=== PATIENT | female | born 1935 | race Hispanic/Latino ===

== ENCOUNTER 2017-02-25 14:07 | Inpatient (IN) | payer MEDICARE ==
--- NOTE | 2017-02-25 14:28 | ED PDOC ---
Arrival/HPI - General Chief Complaint: Weakness/Neurological Deficit Time Seen by Provider: 02/25/17 14:13 Historian: Patient - History of Present Illness Narrative History of Present Illness (Text): 02/25/17 14:28 81 year old female sent from PMD office for facial droop. Patient lives by herself. Physical Education Specialist noticed right facial droop this morning. Patient last seen normal last night. Patient denies having facial droop, states she has not noticed it. Patient refused to go to the ER initially. She went to her PMD where they noticed a facial droop and called EMS to bring the patient to the ER. On arrival to the ER, patient's facial droop has resolved. Physical Education Specialist confirms. Patient only complaining of mild posterior headache. She states this not the worst snow of her life. No photophobia, nausea, vomiting, or other complaints. Time/Duration: 24 hours Symptom Onset: Gradual Symptom Course: Resolved Associated Symptoms (Text): None Past Medical History - Provider Review Nursing Documentation Reviewed: Yes - Infectious Disease Hx of Infectious Diseases: None - Cardiac Hx Hypertension: Yes - Pulmonary Hx Respiratory Disorders: No - Neurological HX Cerebrovascular Accident: Yes (Left sided weakness.) Hx Transient Ischemic Attacks (TIA): Yes - HEENT Hx HEENT Disorder: No - Renal Hx Renal Disorder: No - Endocrine/Metabolic Hx Diabetes Mellitus Type 1: Yes - Hematological/Oncological Hx Blood Transfusions: (UNK) Hx Blood Transfusion Reaction: (UNK) - Integumentary Hx Dermatological Disorder: No - Musculoskeletal/Rheumatological Hx Arthritis: Yes - Gastrointestinal Hx Gastrointestinal Disorders: No - Genitourinary/Gynecological Hx Genitourinary Disorders: No - Psychiatric Hx Psychophysiologic Disorder: No Hx Substance Use: No - Surgical History Hx Orthopedic Surgery: Yes Other/Comment: right wrist x10 years ago - Anesthesia Hx Anesthesia Reactions: (UNK) Hx Malignant Hyperthermia: (UNK) Family/Social History - Physician Review Nursing Documentation Reviewed: Yes Family/Social History: Unknown Family HX Smoking Status: Never Smoked Hx Alcohol Use: No Hx Substance Use: No Allergies/Home Meds Allergies/Adverse Reactions: Allergies FISH Allergy (Verified 02/25/17 14:21) RASH Home Medications: Home Meds Medication Instructions Recorded Confirmed Apixaban [Eliquis] 2.5 mg PO BID 02/25/17 02/25/17 Carvedilol [Coreg] 1 tab PO BID 02/25/17 02/25/17 Digoxin [Lanoxin] 1 tab PO DAILY 02/25/17 02/25/17 Docusate [Colace] 1 cap PO BID 02/25/17 02/25/17 GlipiZIDE [Glucotrol] 5 mg PO DAILY 02/25/17 02/25/17 Lisinopril [Zestril] 2.5 mg PO BID 02/25/17 02/25/17 Omeprazole [Omeprazole] 20 mg PO DAILY 02/25/17 02/25/17 Pravastatin Sodium [Pravachol] 20 mg PO DAILY 02/25/17 02/25/17 metFORMIN [glucOPHAGE] 500 mg PO BID 02/25/17 02/25/17 Review of Systems - Physician Review All systems were reviewed & negative as marked: Yes Physical Exam - Physical Exam Narrative Physical Exam (Text): - Review of Systems Constitutional: Normal. absent: Fatigue, Weight Change, Fevers Eyes: Normal absent: photophobia ENT: Normal Respiratory: Normal absent: SOB, Cough, Sputum Cardiovascular: Normal absent: Chest pain, Palpitations, Syncope Gastrointestinal: Normal absent: Abdominal pain, Diarrhea, Nausea, Vomiting Genitourinary: Normal. absent: Dysuria, Frequency, Hematuria Musculoskeletal: Normal. absent: Arthralgias, Back Pain, Neck Pain Skin: Normal Neurological: Facial droop (resolved), Headache absent: Focal Weakness Endocrine: Normal Hemo/Lymphatic: Normal Psychiatric: Normal - Physical exam Patient appears age appropriate, speaking full sentences without difficulty - Systems Exam Head: Present: Atraumatic, Normocephalic Pupils: Present: PERRL Extraocular Muscles: Present: EOMI Conjunctiva: Present: Normal Mouth: Present: Moist Mucous Membranes Neck: Present: Normal Range of Motion. No: MIDLINE TENDERNESS, Paraspinal Tenderness Respiratory/Chest: Present: Clear to Auscultation, Good Air Exchange. No: Respiratory Distress, Accessory Muscle Use, Tachypneic Cardiovascular: Present: Regular Rate, Irregular rhythm, Normal S1, S2, Peripheral Pulses Present. No: Murmurs Abdomen: Present: Normal Bowel Sounds, No: Tenderness, Peritoneal Signs, Rebound, Guarding, Distention Back: Present: Normal Inspection. No: Midline Tenderness, Paraspinal Tenderness Upper Extremity: Present: Normal Inspection. No: Cyanosis, Edema Lower Extremity: Present: Normal Inspection. No: Edema Neurological: Present: GCS=15, Speech Normal, cranial nerves II through XII fully intact with no cerebellar abnormality, neuro-sensory fully intact. No focal neurological deficits. Skin: Present: Warm, Dry, Normal Color. No: Rashes Lymphatic: Present: OX3, NI, NC Psychiatric: Present: Alert, not agitated. Acting appropriate, as per inspector tool Vital Signs Reviewed: Yes Vital Signs Pulse Resp BP Pulse Ox 02/25/17 14:28 71 16 161/93 H 99 Blood Pressure: Normal Pulse: Regular Respiratory Rate: Normal Appearance: Positive for: Well-Appearing, Non-Toxic, Comfortable Pain Distress: None Mental Status: No: Confused, Agitated, Lethargic Finger Stick Blood Glucose: 108 Medical Decision Making ED Course and Treatment: Impression: Elderly female with resolved facial droop and no focal neurological deficits on neurological exam in ER. Differential Diagnosis include but are not limited to: TIA Plan: -- CT Head, EKG, Chest x-ray -- Tylenol -- Labs -- Reassess and disposition Prior Visits: Notes and results from previous visits were reviewed. Patient last seen in the ED on 04/09/16 for chronic neck pain and discharged home. Progress Notes: 02/25/17 14:26 EKG shows irregular rhythm at [address]-segment elevations, atrial fibrillation. Previous EKG reviewed which showed patient was in sinus rhythm. Interpreted by me. Patient already on Eliquis, rate controlled. PROCEDURE: CT HEAD WITHOUT CONTRAST. Manager Document Control : Sue Valdivia MD Report Date : 02/25/2017 14:47:46 IMPRESSION: Encephalomalacia predominantly involving the right posterior temporal parietal lobes and to a lesser extent portions of the posterior right frontal lobe. Nonspecific white matter changes. Generalized atrophy. 02/25/17 16:20 On reevaluation, patient is resting comfortably in bed, sleeping. Family states the headache has resolved. 02/25/17 16:[address] Houston in detail, agrees with tele obs under his service. Asked for Dr. Corinne Harmon consult for neurology pt and family aware of and agree with plan - Lab Interpretations Lab Results: 02/25/17 15:00 02/25/17 15:00 Lab Results 02/25/17 15:00: Blood Type O POSITIVE, Antibody Screen Negative, BBK History Checked Patient has bt 02/25/17 15:00: Sodium 137, Potassium 3.9, Chloride 100, Carbon Dioxide 28, Anion Gap 13, BUN 21, Creatinine 0.7, Est GFR ( Amer) > 60, Est GFR (Non- Af Amer) > 60, Random Glucose 90, Calcium 9.6, Total Bilirubin 0.8, AST 26, ALT 31, Alkaline Phosphatase 45, Troponin I < 0.01 D, Total Protein 6.7, Albumin 3.9, Globulin 2.8, Albumin/Globulin Ratio 1.4, Triglycerides 130, Cholesterol 151, LDL Cholesterol Direct 80, HDL Cholesterol 47 02/25/17 15:00: PT 13.7 H, INR 1.27 H, APTT 28.7 02/25/17 15:00: WBC 10.0, RBC 4.38, Hgb 12.3, Hct 38.0, MCV 86.8, MCH 28.1, MCHC 32.4, RDW 17.1 H, Plt Count 244, MPV 10.3, Gran % 67.7, Lymph % (Auto) 23.0 , Rooks % (Auto) 8.3 H, Eos % (Auto) 0.8 L, Baso % (Auto) 0.2, Gran # 6.79 H, Lymph # 2.3, Rooks # 0.8 H, Eos # 0.1, Baso # 0.02 - RAD Interpretation Radiology Orders: 02/25/17 14:15 CHEST PORTABLE [RAD] Stat 02/25/17 14:19 HEAD W/O CONTRAST [CT] Stat Bridge Instructor: Radiologist - EKG Interpretation Interpreted by ED Physician: Yes Type: 12 lead EKG - Medication Orders Current Medication Orders: Discontinued Medications Acetaminophen (Tylenol 325mg Tab) 975 mg PO STAT STA Stop: 02/25/17 14:25 Last Admin: 02/25/17 14:46 Dose: 975 mg Aspirin (Aspirin Chewable) 162 mg PO STAT STA Stop: 02/25/17 14:56 Last Admin: 02/25/17 15:32 Dose: 162 mg Atorvastatin Calcium (Lipitor) 40 mg PO STAT STA Stop: 02/25/17 14:57 Last Admin: 02/25/17 15:32 Dose: 40 mg NIHSS Scale ([place]) Time Performed: 14:15 - How Severe is the Stoke Baseline Level of Consciousness: 0=Alert LOC to Questions: 0=Both comments correct LOC to commands: 0=Obeys both correctly Best Gaze: 0=Normal Visual: 0=No visual loss Facial: 0=Normal Motor Arm - Left: 0=No drift Motor Arm - Right: 0=No drift Motor Leg - Left: 0=No drift Motor Leg - Right: 0=No drift Limb Ataxia: 0=Absent Sensory: 0=Normal Best Language: 0=No aphasia Dysarthia: 0=Normal articulation Extinction & Inattention (Neglect): 0=Normal, no object Score: 0 Risk Level: No Stroke Risk rTPA Inclusion/Exclusion - Refusal of Treatment Patient Refused Treatment: No - Inclusion Criteria for Altepase Patient is 18 years or Older: Yes The Clinical Diagnosis of Ischemic Stroke That is Causing a Potentially Disabling Neurological Deficit: No Time of Onset is Well Established to be Less Than 270 Minute Before Treatment Would Begin: No Risk/Benefit Discussed With Patient/Family Member Present: No - Exclusion Criteria for Altepase Uncontrolled Hypertension at Time of Treatment (Systolic BP above 185 or Diastolic BP above 110 mmHg): No - Scribe Statement The provider has reviewed the documentation as recorded by the Cheri Bishop Provider Scribe Attestation: All medical record entries made by the Cheri were at my direction and personally dictated by me. I have reviewed the chart and agree that the record accurately reflects my personal performance of the history, physical exam, medical decision making, and the department course for this patient. I have also personally directed, reviewed, and agree with the discharge instructions and disposition. Disposition/Present on Arrival - Present on Arrival Any Indicators Present on Arrival: No History of DVT/PE: No History of Uncontrolled Diabetes: No Urinary Catheter: No History of Decub. Ulcer: No History Surgical Site Infection Following: None - Disposition Have Diagnosis and Disposition been Completed?: Yes Diagnosis: TIA (transient ischemic attack) Disposition: HOSPITALIZED Disposition Time: 16:51 Patient Plan: Observation Patient Problems: Current Active Problems Problem Status Onset TIA (transient ischemic attack) Acute Condition: STABLE Referrals: PCP,NO [Non-Staff] - Follow up with primary
--- NOTE | 2017-02-25 14:48 | RAD ---
HISTORY: tia COMPARISON: 03/20/2016 FINDINGS: LUNGS: The lungs are clear. PLEURA: No significant pleural effusion identified, no pneumothorax apparent. CARDIOVASCULAR: Normal. OSSEOUS STRUCTURES: No significant abnormalities. VISUALIZED UPPER ABDOMEN: Normal. OTHER FINDINGS: None. IMPRESSION: No active pulmonary disease.
--- NOTE | 2017-02-25 14:49 | CT ---
PROCEDURE: CT HEAD WITHOUT CONTRAST. HISTORY: tia COMPARISON: Noncontrast head CT performed 03/20/16 TECHNIQUE: Axial computed tomography images were obtained through the head/brain without intravenous contrast. Radiation dose: Total exam DLP = 689.09 mGy-cm. This CT exam was performed using one or more of the following dose reduction techniques: Automated exposure control, adjustment of the mA and/or kV according to patient size, and/or use of iterative reconstruction technique. FINDINGS: HEMORRHAGE: No intracranial hemorrhage. BRAIN: Diffuse atrophy with prominence of the ventricles and sulci noted. No mass effect or edema. Intracranial atherosclerotic calcifications. Evidence of encephalomalacia predominantly involving the right posterior temporal parietal lobes and to a lesser extent portions of the posterior right frontal lobe. Additional scattered white matter hypodensities, which are nonspecific, but often seen with chronic microvascular ischemic disease. Please note that MRI with diffusion imaging is more sensitive in the detection of acute ischemic event. VENTRICLES: No hydrocephalus. CALVARIUM: Unremarkable. PARANASAL SINUSES: Unremarkable as visualized. No significant inflammatory changes. MASTOID AIR CELLS: Unremarkable as visualized. No inflammatory changes. OTHER FINDINGS: None. IMPRESSION: Encephalomalacia predominantly involving the right posterior temporal parietal lobes and to a lesser extent portions of the posterior right frontal lobe. Nonspecific white matter changes. Generalized atrophy.
[2017-02-25 15:16] LABS: ADD MANUAL DIFF? NO
[2017-02-25 15:29] LABS: BASO # 0.02 K/mm3 (0.0-2.0); BASO % 0.2 % (0.0-3.0); EOS # 0.1 (0.0-0.7); EOS % 0.8 % (1.5-5.0); GRAN # 6.79 (1.4-6.5); GRAN % 67.7 % (50.0-68.0); LYMPH # 2.3 (1.2-3.4); MEAN CELL VOLUME 86.8 fL (80.0-105.0); MEAN CORPUSCULAR HEMOGLOBIN 28.1 pg (25.0-35.0); MEAN CORPUSCULAR HGB CONC 32.4 g/dl (31.0-37.0); MEAN PLATELET VOLUME 10.3 fl (7.0-11.0); MONO # 0.8 (0.1-0.6); MONO % 8.3 % (1.0-6.0); PLATELET COUNT 244 10^3/uL (120.0-450.0); RED CELL DISTRIBUTION WIDTH 17.1 % (11.5-14.5)
[2017-02-25 15:35] LABS: INR 1.27 (0.93-1.08); PARTIAL THROMBOPLASTIN TIME 28.7 Seconds (23.7-30.8)
[2017-02-25 15:38] LABS: ALB/GLOB RATIO 1.4 (1.1-1.8); ALKALINE PHOSPHATASE 45 U/L (38-133); ALT/SGPT 31 U/L (7-56); AST/SGOT 26 U/L (15-39); BILIRUBIN,TOTAL 0.8 mg/dL (0.2-1.3); BLOOD UREA NITROGEN 21 mg/dL (7-21); CALCIUM 9.6 mg/dL (8.4-10.5); CARBON DIOXIDE 28 mmol/L (21-33); CHLORIDE 100 mmol/L (98-107); CHOLESTEROL 151 mg/dL (130-200); GFR AFRICAN-AMERICAN > 60; GLUCOSE,RANDOM 90 mg/dL (70-110); POTASSIUM 3.9 mmol/L (3.6-5.0); SODIUM 137 mmol/L (132-148); TOTAL PROTEIN 6.7 g/dL (5.8-8.3)
[2017-02-25 15:54] LABS: TROPONIN I < 0.01 ng/mL
--- NOTE | 2017-02-25 18:48 | CARD ---
APPROVED REPORT EKG Measurement Heart [id number] <Conclusion> Atrial fibrillation Left axis deviation Inferior infarct, age undetermined Anteroseptal infarct, age undetermined Abnormal ECG
[2017-02-25] MEDS ORDERED: Sodium Chloride 0.9% 1,000 ML IV SCH ×2 (21:00→21:02)
[2017-02-25 21:29] VITALS: BMI 22.6
[2017-02-25] MEDS ORDERED: Pneumococcal 23-Valent Vaccine IM ONE (21:30)
[2017-02-25] MEDS: Insulin Lispro (humaLOG) LOW Coverage SC SCH (21:35)
--- NOTE | 2017-02-26 00:32 | CP.PCM.HP ---
History of Present Illness - History of Present Illness History of Present Illness: PGY-1 H&P 81 yo female with PMH of HTN, CVA with left sided weakness, DM, arthritis, a. fib on eliquis presented for facial droop. Per patient's sister, patient was found this morning with right sided facial droop and confusion. Patient did not have any facial droop the night before, and seemed normal. Patient lives alone and has tax examiner come to home. Patient refused to go to ED but agreed to go to PMD office. There PMD noticed facial droop and called EMS to bring patient to hospital. On arrival to ED patient;s facial droop had resolved. Per sister, when tax examiner took the bp this morning, it was elevated. Patient also reports vomiting a lsmall amount both yesterday evening and this morning. Patient has had increased difficulty walking and decreased appetite over past few days. SHe denies fever, chills, dizziness. Patient dose report mild cough, constipation and posterior headache. Patient states that she is doing better since coming to ED. PMH: HTN, CVA with left sided weakness, DM, arthritis, a. fib on eliquis PSH: right wrist (8 yo) social hx: denies smoking, alcohol use, illicit drug use, lives alone allergy: fish Present on Admission - Present on Admission Any Indicators Present on Admission: No Review of Systems - Constitutional Constitutional: Headache, Weakness. absent: Chills, Fever, Weight Loss - EENT Eyes: absent: Change in Vision Nose/Mouth/Throat: absent: Nasal Congestion, Nasal Discharge, Sore Throat - Cardiovascular Cardiovascular: absent: Chest Pain, Dyspnea, Palpitations, Syncope - Respiratory Respiratory: absent: Cough, Dyspnea, Hemoptysis - Gastrointestinal Gastrointestinal: Constipation, Nausea, Vomiting. absent: Abdominal Pain, Diarrhea - Genitourinary Genitourinary: absent: Difficulty Urinating, Dysuria - Musculoskeletal Musculoskeletal: Muscle Weakness. absent: Arthralgias, Myalgias, Numbness, Tingling - Integumentary Integumentary: absent: Pruritus, Rash, Skin Ulcer, Wounds - Neurological Neurological: Abnormal Speech, Headaches, Memory Loss, Weakness. absent: Dizziness, Numbness, Focal Weakness, Syncope, Tingling - Hematologic/Lymphatic Hematologic: absent: Easy Bleeding, Easy Bruising Past Patient History - Infectious Disease Hx of Infectious Diseases: None - Past Social History Smoking Status: Never Smoked Alcohol: None Drugs: Denies - CARDIAC Hx Cardia Arrhythmia: Yes (afib) Hx Hypercholesterolemia: Yes Hx Hypertension: Yes - PULMONARY Hx Respiratory Disorders: No - NEUROLOGICAL HX Cerebrovascular Accident: Yes (Left sided weakness.) Hx Transient Ischemic Attacks (TIA): Yes - HEENT Hx HEENT Problems: No - RENAL Hx Chronic Kidney Disease: No - ENDOCRINE/METABOLIC Hx Diabetes Mellitus Type 2: Yes - HEMATOLOGICAL/ONCOLOGICAL Hx Blood Disorders: No - INTEGUMENTARY Hx Dermatological Problems: No - MUSCULOSKELETAL/RHEUMATOLOGICAL Hx Arthritis: Yes Hx Back Pain: Yes Hx Falls: Yes (past) Hx Unsteady Gait: Yes (cane/walker) - GASTROINTESTINAL Hx Gastrointestinal Disorders: No - GENITOURINARY/GYNECOLOGICAL Hx Genitourinary Disorders: No - PSYCHIATRIC Hx Psychophysiologic Disorder: No - SURGICAL HISTORY Hx Orthopedic Surgery: Yes Other/Comment: right wrist x10 years ago, bunionectomy - ANESTHESIA Hx Anesthesia Reactions: (UNK) Hx Malignant Hyperthermia: (UNK) Meds Allergies/Adverse Reactions: Allergies Allergy/AdvReac Type Severity Reaction Status Date / Time FISH Allergy RASH Verified 02/25/17 14:21 Physical Exam - Constitutional Appears: Well, No Acute Distress - Head Exam Head Exam: ATRAUMATIC, NORMOCEPHALIC - Eye Exam Eye Exam: EOMI, Normal appearance, PERRL Additional comments: no facial droop - ENT Exam ENT Exam: Mucous Membranes Dry - Respiratory Exam Respiratory Exam: Clear to Auscultation Bilateral, NORMAL BREATHING PATTERN. absent: Rales, Rhonchi, Wheezes, Respiratory Distress - Cardiovascular Exam Cardiovascular Exam: REGULAR RHYTHM, +S1, +S2. absent: Tachycardia, Diastolic murmur, Systolic Murmur - GI/Abdominal Exam GI & Abdominal Exam: Normal Bowel Sounds, Soft. absent: Distended, Firm, Guarding, Tenderness - Extremities Exam Extremities exam: Positive for: normal inspection. Negative for: pedal edema - Neurological Exam Neurological exam: Alert, Oriented x3 - Expanded Neurological Exam Expanded Speech: Fluid Speech Neuro motor strength exam: Left Upper Extremity: 5, Right Upper Extremity: 5, Left Lower Extremity: 5, Right Lower Extremity: 5 Coma Scale Eye Opening: SPONTANEOUS Coma Scale Motor Response: OBEYS COMMANDS Coma Scale Verbal: Oriented Coma Scale Total: 15 - Skin Skin Exam: Dry, Intact, Normal Color, Warm Results - Vital Signs Recent Vital Signs: Last Vital Signs Temp 98.3 F 02/25/17 23:43 Pulse 68 02/25/17 23:43 Resp 20 02/25/17 23:43 BP 161/80 H 02/25/17 23:43 Pulse Ox 96 02/25/17 23:43 - Labs Result Diagrams: 02/25/17 15:00 02/25/17 15:00 Assessment & Plan - Assessment and Plan (Free Text) Assessment: 81 yo female with PMH of HTN, CVA with left sided weakness, type 1 DM, arthritis , a. fib on eliquis presented for possible TIA. Plan: 1. TIA - facial droop resolved - neuro consult, Dr. Harmon - neuro check q4h - IVF NS @100 - PT eval 2. HTN - currently controlled - restart home lisinopril and coreg tomorrow - cont to monitor 3. DM - hold home metformin - ISS- lispro- low - fingerstick ACHS 4. a. fib - cont eliquis - cont coreg and digoxin - cont to monitor ppx - GI- protonix - DVT- SCDs, eliquis
[2017-02-26 06:47] LABS: ADD MANUAL DIFF? NO
[2017-02-26 06:51] LABS: BASO # 0.03 K/mm3 (0.0-2.0); BASO % 0.5 % (0.0-3.0); EOS # 0.2 (0.0-0.7); EOS % 2.5 % (1.5-5.0); GRAN # 3.38 (1.4-6.5); GRAN % 51.7 % (50.0-68.0); HEMATOCRIT 35.2 % (36.0-48.0); LYMPH # 2.5 (1.2-3.4); LYMPH % 38.7 % (22.0-35.0); MEAN CELL VOLUME 85.9 fL (80.0-105.0); MEAN CORPUSCULAR HEMOGLOBIN 27.8 pg (25.0-35.0); MEAN CORPUSCULAR HGB CONC 32.4 g/dl (31.0-37.0); MEAN PLATELET VOLUME 9.7 fl (7.0-11.0); MONO # 0.4 (0.1-0.6); MONO % 6.6 % (1.0-6.0); PLATELET COUNT 215 10^3/uL (120.0-450.0); RED CELL DISTRIBUTION WIDTH 16.8 % (11.5-14.5); WHITE BLOOD COUNT 6.5 10^3/ul (4.5-11.0)
[2017-02-26 07:01] LABS: ALB/GLOB RATIO 1.2 (1.1-1.8); ALKALINE PHOSPHATASE 34 U/L (38-133); ALT/SGPT 29 U/L (7-56); AST/SGOT 23 U/L (15-39); BILIRUBIN,TOTAL 0.8 mg/dL (0.2-1.3); BLOOD UREA NITROGEN 15 mg/dL (7-21); CARBON DIOXIDE 28 mmol/L (21-33); CHLORIDE 108 mmol/L (98-107); GFR AFRICAN-AMERICAN > 60; GLUCOSE,RANDOM 60 mg/dL (70-110); SODIUM 142 mmol/L (132-148); TOTAL PROTEIN 5.5 g/dL (5.8-8.3)
[2017-02-26] MEDS: Insulin Lispro (humaLOG) LOW Coverage SC SCH ×4 (07:47→21:10)
[2017-02-26] MEDS: Pantoprazole 40 mg EC Tab PO SCH (07:49)
[2017-02-26] MEDS: Digoxin 125 mcg (0.125 mg) Tab PO SCH ×2 (09:55→14:00)
--- NOTE | 2017-02-26 13:11 | US ---
PROCEDURE: Bilateral carotid artery duplex ultrasound HISTORY: Carotid stenosis PHYSICIAN(S): Otilio Stevens MD. TECHNIQUE: Duplex sonography and color-flow Doppler were used to evaluate the carotid bifurcations and limited segments of the vertebral arteries bilaterally. FINDINGS: There is mild to moderate focal heterogeneous echogenic plaque noted at the carotid bifurcations bilaterally. The peak systolic velocity in the proximal right internal carotid artery is 60 cm/sec. This corresponds to a 20 to 39% proximal right ICA stenosis. Normal systolic velocities are noted in the proximal right external carotid artery. There is antegrade flow in the right vertebral artery. The peak systolic velocity in the proximal left internal carotid artery is 70 cm/sec. This corresponds to a 20 to 39% proximal left ICA stenosis. Normal systolic velocities are noted in the proximal left external carotid artery. There is antegrade flow in the left vertebral artery. IMPRESSION: 1. Bilateral 20-39% proximal ICA stenoses. 2. Antegrade flow in both vertebral arteries.
--- NOTE | 2017-02-26 14:42 | HP ---
ADDENDUM: I discussed at length with the resident about the patient. She is comfortable sitting out of bed to chair. She is an 80-year-old female who had a right facial droop that resolved, being the TIA. PAST MEDICAL HISTORY: Hypertension, CVA, left-sided weakness which is old, diabetes, arthritis, atrial fibrillation on Eliquis. The droop came and left. PAST SURGICAL HISTORY: She had a bunionectomy and right wrist surgery 10 years ago. SOCIAL HISTORY: Does not smoke. Occasional alcohol. No illicit drugs. ALLERGIES: FISH. REVIEW OF SYSTEMS: She had this right facial droop which resolved, headache and weakness which resolved. No sore throat. No chest pain, no palpitations, no coughing, no shortness of breath. There is constipation, nausea, vomiting which is chronic, but is better now. No problems urinating. She does have weakness on the side of the body which is from her first stroke. Skin is intact. Normal speech, back to normal at this time. She has atrial fibrillation, hypertension, left-sided weakness from old CVA, diabetes, history of falls, arthritis, uses a walker and cane to get around. PHYSICAL EXAMINATION: VITAL SIGNS: 97.7 temp, 153/69 blood pressure, 60 pulse, 20 respiratory rate, 97% O2 sat on room air. HEENT: Head atraumatic. Eyes: Extraocular muscles are intact. Pupils reactive to light. Mouth is moist. NECK: Supple. HEART: Regular rate. Normal S1, S2. LUNGS: Decreased breath sounds but clear to auscultation. ABDOMEN: Soft, nontender, positive bowel sounds, no guarding, no rebound, no CVA tenderness. She is obese. EXTREMITIES: Trace edema. She has a chronic left-sided weakness. LABORATORY DATA: She had blood tests; 142 sodium, potassium 4, BUN is , creatinine 0.7, GFR is greater than 60, sugar is 60. Hemoglobin A1c is 6, calcium is 9, total bili is 0.8, AST is 23, ALT is 29, alkaline phosphatase 34. Troponin less than 0.01. Cholesterol is 151. INR is 1.27, white count 6.5, hemoglobin 11.4, hematocrit 35.2, platelets Chest x-ray was no active pulmonary disease. CAT scan was nonacute encephalomalacia. I discussed with the resident we will be discharging her home. She is going home on the same medications: Colace, Coreg, Eliquis, Lanoxin, Lipitor, Protonix and Zestril. She is going to follow with Dr. Samuels next week. She is here for TIA which resolved. Dandy Mark DO cc: [id number] TT: 02/26/2017 14:42:00 simran BLEVINS
[2017-02-26 16:06] LABS: URINE APPEARANCE CLEAR (CLEAR); URINE BILIRUBIN NEGATIVE (NEGATIVE); URINE BLOOD NEGATIVE (NEGATIVE); URINE COLOR YELLOW (YELLOW); URINE GLUCOSE (UA) NEGATIVE (NEGATIVE); URINE KETONE NEGATIVE (NEGATIVE); URINE LEUKOCYTE ESTERASE SMALL Leu/uL (NEGATIVE); URINE PROTEIN NEGATIVE mg/dL (<30 mg/dL); URINE UROBILINOGEN 0.2 E.U./dL (<1 E.U./dL)
[2017-02-26 16:20] LABS: URINE RBC NEGATIVE /hpf (0-2)
[2017-02-26 16:21] LABS: URINE BACTERIA FEW (NEG)
--- NOTE | 2017-02-26 22:33 | CON ---
DATE: 02/26/2017 HISTORY OF PRESENT ILLNESS: This is an 81-year-old female with a past medical history who came in with facial droop. The flap presser noticed that the patient was having a right facial droop this m orning. The patient was seen normal last night and that is why the patient first refused to go to [facility] initially and went to her primary medical doctor, who sent her here and now is feeli ng much better, sister at bedside. PAST MEDICAL HISTORY: Hypertension. The patient's blood pressure was noted to be high and the patie nt also has diabetes and status post right wrist surgery 10 years ago. ALLERGIES: THE PATIENT IS ALLERGIC TO FISH. HOME MEDICATIONS: On Eliquis, Coreg, Lanoxin, Colace, Glucotrol, Zestril, omeprazole, Pravachol and Glucophage. REVIEW OF SYSTEMS: A 10-point review of system was negative except left facial mild droop. PHYSICAL EXAMINATION: HEENT: Normocephalic, atraumatic. VITAL SIGNS: Blood pressure 161/93. NECK: Supple. NEUROLOGIC: Awake and oriented to self. Cranial nerves II through XII were tested. Pupils reactive . EOM intact. Visual [place] full. No facial asymmetry. Tongue midline. Motor examination: Moves all the extremities spontaneously. Tone normal. Deep tendon reflexes 1+. Both plantars are downgo ing. Sensory appears intact. Cerebellar and gait deferred. CAT scan of the head was done, which showed encephalomalacia in the right posterior temporal and radha etal lobe and right frontal and no new stroke was noted. IMPRESSION: Transient ischemic attack. Continue present management and will followup. A carotid Do ppler was done, which was only 39% stenosis. Lee Harmon MD cc: [id number] TT: 02/26/2017 22:32:41 Confirmation # [id number] Dictation # [id number] simran
[2017-02-27 07:57] LABS: ADD MANUAL DIFF? NO
[2017-02-27 08:03] LABS: BASO # 0.02 K/mm3 (0.0-2.0); BASO % 0.3 % (0.0-3.0); EOS # 0.2 (0.0-0.7); GRAN # 3.96 (1.4-6.5); GRAN % 54.3 % (50.0-68.0); LYMPH # 2.6 (1.2-3.4); LYMPH % 36.2 % (22.0-35.0); MEAN CELL VOLUME 86.3 fL (80.0-105.0); MEAN CORPUSCULAR HEMOGLOBIN 27.8 pg (25.0-35.0); MEAN CORPUSCULAR HGB CONC 32.2 g/dl (31.0-37.0); MEAN PLATELET VOLUME 10.3 fl (7.0-11.0); MONO # 0.5 (0.1-0.6); MONO % 6.2 % (1.0-6.0); PLATELET COUNT 223 10^3/uL (120.0-450.0); RED CELL DISTRIBUTION WIDTH 17.1 % (11.5-14.5); WHITE BLOOD COUNT 7.3 10^3/ul (4.5-11.0)
[2017-02-27] MEDS: Pantoprazole 40 mg EC Tab PO SCH (08:14)
[2017-02-27 08:15] LABS: ALB/GLOB RATIO 1.2 (1.1-1.8); ALKALINE PHOSPHATASE 37 U/L (38-133); ALT/SGPT 32 U/L (7-56); AST/SGOT 24 U/L (15-39); BILIRUBIN,TOTAL 0.6 mg/dL (0.2-1.3); BLOOD UREA NITROGEN 10 mg/dL (7-21); CARBON DIOXIDE 29 mmol/L (21-33); CHLORIDE 105 mmol/L (98-107); GFR AFRICAN-AMERICAN > 60; GLUCOSE,RANDOM 78 mg/dL (70-110); POTASSIUM 3.9 mmol/L (3.6-5.0); SODIUM 140 mmol/L (132-148); TOTAL PROTEIN 5.6 g/dL (5.8-8.3)
--- NOTE | 2017-02-27 08:40 | DS ---
She is status post TIA. She has hypertension, diabetes, and she is obese. She is comfortable. Disc ussed with the resident at length. All the tests were good. Waiting for the neurologist to see her, but the tests were good. She will get followup in the outpatient if he does not get to see her yet. PHYSICAL EXAMINATION: VITAL SIGNS: She has a 97.7 temp, 60 pulse, 153/69 blood pressure, 20 respiratory rate, 97% O2 sat o n room air. HEAD: Atraumatic, normocephalic. HEART: Regular rate. LUNGS: Clear to auscultation. ABDOMEN: Soft, obese, nontender. EXTREMITIES: No edema with weakness. She is an old CVA, TIA, diabetes. LABORATORY DATA: Her labs look good. Reports were good. She has a consult with neurology that did not see her yet, and there are carotid Dopplers pending. I am hoping to discharge her today on aspir in, Colace, Coreg, Eliquis, Lanoxin, Lipitor, Protonix, Zestril, which are her baseline medications, and to follow up with Dr. Samuels in the next few days in his office The patient is here for a TIA. Dandy Mark DO cc: [id number] TT: 02/27/2017 08:40:01 kelli
--- NOTE | 2017-02-27 08:59 | MRI ---
PROCEDURE: MRI BRAIN WITHOUT CONTRAST HISTORY: CVA/TIA COMPARISON: None. TECHNIQUE: Multiplanar, multisequence MR images of the brain were obtained without intravenous contrast enhancement. FINDINGS: HEMORRHAGE: None DWI: No evidence of an acute or early subacute infarction. BRAIN PARENCHYMA: No mass effect or edema. 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 VENTRICLES: Unremarkable. No hydrocephalus. CRANIUM: Unremarkable. ORBITS: Grossly unremarkable. PARANASAL SINUSES/MASTOIDS: Clear VASCULAR SYSTEM: Skull base flow voids intact. OTHER FINDINGS: None. 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 No acute infarct.
[2017-02-27] MEDS: Insulin Lispro (humaLOG) LOW Coverage SC SCH ×4 (09:27→21:21)
--- NOTE | 2017-02-27 09:58 | PN ---
DATE: 02/27/2017 I saw her resting comfortably in bed. She is feeling better than when she came in. She is still hav ing some issues with weakness here and there. She is very weak. She cannot walk. She needs physica l therapy. I will put a TCU eval, physical therapy eval, so we need to know if she can go to subacut e or TCU. Also, I will get her out of bed to chair if possible. Encouraged her to eat. PHYSICAL EXAMINATION: VITAL SIGNS: Today are 97.9 temp, 64 pulse, 140/75 blood pressure, 21 respiratory rate, 98% O2 sat o n room air. HEAD: Atraumatic, normocephalic. THROAT: Moist. NECK: Supple. HEART: Regular rate. LUNGS: Clear to auscultation. ABDOMEN: Soft. EXTREMITIES: Weak, mildly contracted in the lower extremities, no edema. She is currently on Colace, Coreg, Eliquis, insulin, Lanoxin, Lipitor, Protonix and Zestril. She has a 6.5 white count, 11.4 hemoglobin, 35.2 hematocrit with 215 platelets. Sodium 142, potassiu m is 4, BUN 15, creatinine 0.7, GFR is greater than 60, sugar is 60, calcium is 9.0, total bili is 0. 8, AST is 23, ALT is 29, alk phos 34. Troponin was less than 0.01. Total protein is 5.5, albumin is 3, globulin is 2.5. Urine was small. Digoxin was 1.4. She is being seen by neurology, who said that the TIA was resolving. She had a carotid artery ultras ound. The MRI is pending of the brain. Bilateral 20%-39% proximal ICA stenosis. Waiting for cardio logy to see her. I will order physical therapy. I will order TCU eval. I will try and get her out of bed to chair. I encouraged her to eat her diet as best she can to keep her strength up. I think she is going to need some kind of TCU or subacute rehabilitation. She is very weak. She tells me sh e is weak. I am glad that the symptoms of stroke resolved at this time. I will keep a very close ey e on her. The patient had weakness, transient ischemic attack and now she needs therapy. It is unsafe discharg e at this time. Dandy Mark DO cc: [id number] TT: 02/27/2017 09:58:23 Confirmation # [id number] Dictation # [id number] en
[2017-02-27] MEDS: Digoxin 125 mcg (0.125 mg) Tab PO SCH (14:01)
--- NOTE | 2017-02-27 16:05 | PN ---
DATE: 02/27/2017 CHIEF COMPLAINT: Follow up for transient right-sided facial droop as well as confusion. SUBJECTIVE: The patient seen and examined at bedside. MRI of the brain showed no acute intracranial abnormality, just extensive chronic periventricular white ischemic disease with old right posterior parietal frontal infarct. No acute infarct is seen. She is just generally weak though at this time. Her paresthesias have subsided. She did have an episode on 02/26/17 of hypoglycemia with a blood glu cose of 60 and an A1c of 6.0. She is currently on Eliquis given her history of Afib, 2.5 mg p.o. b.i .d. and Lipitor 10 mg daily for stroke prevention. 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 SOCIAL HISTORY: No illicit drug use, smoking, or ETOH abuse. ALLERGIES: FISH. MEDICATIONS: Reviewed via nurses' reconciliation sheet. REVIEW OF SYSTEMS: A 14-point review of systems is negative except for the HPI. PHYSICAL EXAMINATION: VITAL SIGNS: Temperature 97, pulse rate of 62, blood pressure 140/70, respiratory rate 20, oxygen sa turation 95% on room air. GENERAL: The patient is sitting up in bed in no acute distress. HEENT: Atraumatic, normocephalic. PERRLA. Extraocular muscles intact. NECK: Supple, no JVD, no adenopathy noted. LUNGS: Clear to auscultation. No adventitious sounds. HEART: S1, S2, normal rate and rhythm. No murmurs, rubs, or gallops. ABDOMEN: Soft, nontender, nondistended. Bowel sounds are present. EXTREMITIES: No clubbing, no cyanosis. Peripheral pulses 2+ felt bilaterally. NEUROLOGIC: The patient is alert, oriented to person, place and year. Recall after 5 minutes is 1/3 . Poor attention span, slow thought process. Cranial nerves II through XII are intact. MOTOR: Has residual mild left-sided weakness, 4+ to 5-/5 on the right and slight increased tone on t he left side due to old stroke and weakness. Right side is intact. DTRs are 2+ throughout and 1 at the knees and absent at the ankles. SENSORY: Decreased light touch and pinprick up to the calves bilaterally. Toes are downgoing bilate rally. Decreased vibration in the toes. COORDINATION: [id number] intact. GAIT: Deferred for now. LABORATORIES: Sodium is 140, potassium 3.9, chloride 105, carbon dioxide 29, BUN of 10, creatinine 0 .6, random glucose 78. 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 MRI of the brain showed an acute intracranial abnormality, ___ __ old right posterior parietal frontal infarct and chronic ischemic changes. Currently, she did hav e some low blood glucose of 60 on 02/26/2017, which made her generally more weaker. Currently, she has generalized weakness. At this time, recommend: 1. Continue Eliquis 2.5 mg p.o. b.i.d. for underlying Afib, Lipitor 20 mg for dyslipidemia for strok e prevention. 2. Likely will need some subacute rehabilitation for generalized weakness. 3. Keep her blood pressure between 130-140 mmHg. 4. Keep her blood sugars between 140-180 and avoid hypoglycemic events and continue with current pre sent medical management. No further neurological workup at this time. Please reconsult if necessary. Bulmaro Harmon MD cc: [phone] TT: 02/27/2017 16:04:37 Confirmation # [id number] Dictation # [id number] dn
[2017-02-28 06:50] LABS: ADD MANUAL DIFF? NO
[2017-02-28 07:08] LABS: ALB/GLOB RATIO 1.1 (1.1-1.8); ALKALINE PHOSPHATASE 37 U/L (38-133); ALT/SGPT 26 U/L (7-56); AST/SGOT 21 U/L (15-39); BILIRUBIN,TOTAL 0.6 mg/dL (0.2-1.3); BLOOD UREA NITROGEN 12 mg/dL (7-21); CALCIUM 8.8 mg/dL (8.4-10.5); CARBON DIOXIDE 29 mmol/L (21-33); CHLORIDE 104 mmol/L (98-107); GFR AFRICAN-AMERICAN > 60; GLUCOSE,RANDOM 101 mg/dL (70-110); SODIUM 139 mmol/L (132-148); TOTAL PROTEIN 5.6 g/dL (5.8-8.3)
[2017-02-28 07:12] LABS: BASO # 0.02 K/mm3 (0.0-2.0); BASO % 0.2 % (0.0-3.0); EOS # 0.2 (0.0-0.7); EOS % 2.9 % (1.5-5.0); GRAN # 4.62 (1.4-6.5); GRAN % 57.3 % (50.0-68.0); HEMATOCRIT 36.7 % (36.0-48.0); LYMPH # 2.7 (1.2-3.4); MEAN CELL VOLUME 85.9 fL (80.0-105.0); MEAN CORPUSCULAR HEMOGLOBIN 28.1 pg (25.0-35.0); MEAN CORPUSCULAR HGB CONC 32.7 g/dl (31.0-37.0); MEAN PLATELET VOLUME 9.9 fl (7.0-11.0); MONO # 0.5 (0.1-0.6); MONO % 6.6 % (1.0-6.0); PLATELET COUNT 212 10^3/uL (120.0-450.0); RED CELL DISTRIBUTION WIDTH 16.8 % (11.5-14.5); WHITE BLOOD COUNT 8.1 10^3/ul (4.5-11.0)
--- NOTE | 2017-02-28 07:29 | PN ---
DATE: 02/26/2017 ADDENDUM I was going to discharge her, but her pulse dropped to the 30s and she cannot walk. She will need ph ysical therapy and cardiology evaluation, although her TIA resolved. She is too weak, will need reha b, either TCU or subacute rehab. We will wait and see what physical therapy adds, but she cannot wal k and also the pulse is now in the 30s. Will call cardiology and she if she needs a pacemaker. She is on Coreg, Lanoxin, Zestril. See what cardiology wants to do with the medications and she is also bradycardic, I am adding that to her admitting diagnosis and I changed her to an inpatient. Dandy Mark DO cc: [id number] TT: 02/26/2017 13:45:23 Confirmation # [id number] Dictation # [id number] kelli 02/28/2017 06:28:39
[2017-02-28] MEDS: Insulin Lispro (humaLOG) LOW Coverage SC SCH ×4 (07:58→21:44)
[2017-02-28] MEDS: Pantoprazole 40 mg EC Tab PO SCH (08:17)
[2017-02-28] MEDS: Megestrol Acetate 40 mg/ml Cup PO SCH (09:45)
--- NOTE | 2017-02-28 12:51 | CARDCATH ---
PROCEDURE DATE: 02/28/2017 HISTORY OF PRESENT ILLNESS: The patient is an 81-year-old woman who presented with facial droop. Sh e was found to be in atrial fibrillation. PAST MEDICAL HISTORY: Also includes hypertension. Her facial droop is improved since admission. Her cardiac risk factors include hypertension, diabetes mellitus, and hypercholesterolemia. The patient was on Coreg and Eliquis as an outpatient. SOCIAL HISTORY: Negative smoker. REVIEW OF SYSTEMS: A 14-point was reviewed. No cardiac symptomatology is noted. PHYSICAL EXAMINATION: VITAL SIGNS: Blood pressure is 86/82, the heart rate was in the 50s, atrial fibrillation. NECK: Negative JVD. LUNGS: Without rales. HEART: Reveals S1, S2. EXTREMITIES: Without edema. NEUROLOGIC: The patient is awake and alert, able to answer questions. Her facial droop is resolved. EKG shows atrial fibrillation with nonspecific ST-T changes. The hemoglobin is 12. Chemistries: BUN and creatinine are unremarkable. The glucose is 112. SUMMARY: 1. Atrial fibrillation with periods of decreased heart rate. 2. Transient ischemic attack. 3. Diabetes mellitus. 4. Hypertension. 5. Hypercholesterolemia. Given these findings, I agree with her current medical regimen, which includes stopping her Coreg as well as adding Norvasc for blood pressure control. The patient will continue on Eliquis. The patien t will need extensive rehabilitation. Otilio Cedillo MD cc: [phone] TT: 02/28/2017 12:50:19 en
--- NOTE | 2017-02-28 12:55 | CP.PCM.PN ---
<Bucky Chaney - Last Filed: 02/28/17 14:19> Subjective - Date & Time of Evaluation Date of Evaluation: 02/28/17 Time of Evaluation: 12:48 - Subjective Subjective: Medicine progress note for Dr. Samuels/Dr. Houston - Bucky Chaney PGY1 Patient seen and examined at bedside this morning. No acute overnight events or new complaints. Denies chest pain, palpitations, SOB. Patient to be evaluated for TCU placement given need for physical therapy/rehabilitation. Objective - Vital Signs/Intake and Output Vital Signs (last 24 hours): Temp Pulse Resp BP Pulse Ox 98.1 F 60 20 186/82 H 98 02/28/17 05:14 02/28/17 09:46 02/28/17 05:14 02/28/17 09:46 02/28/17 05:14 Intake and Output: 02/28/17 02/28/17 06:59 18:59 Intake Total 420 Output Total 600 Balance -180 - Medications Medications: Current Medications Apixaban (Eliquis) 2.5 mg PO BID [facility] PRN Reason: Protocol Last Admin: 02/28/17 09:44 Dose: 2.5 mg Atorvastatin Calcium (Lipitor) 10 mg PO DAILY [facility] Last Admin: 02/28/17 09:45 Dose: 10 mg Carvedilol (Coreg) 3.125 mg PO BID [facility] Digoxin (Lanoxin) 0.125 mg PO 1400 [facility] Last Admin: 02/27/17 14:01 Dose: Not Given Docusate Sodium (Colace) 100 mg PO BID [facility] Last Admin: 02/28/17 09:44 Dose: 100 mg Insulin Human Lispro (Humalog Low) 0 units SC ACHS [facility] PRN Reason: Protocol Last Admin: 02/28/17 12:38 Dose: 1 units Lisinopril (Zestril) 2.5 mg PO DAILY [facility] Last Admin: 02/28/17 09:46 Dose: 2.5 mg Megestrol Acetate (Megace) 400 mg PO DAILY [facility] Last Admin: 02/28/17 09:45 Dose: 400 mg Pantoprazole Sodium (Protonix Ec Tab) 40 mg PO ACB [facility] Last Admin: 02/28/17 08:17 Dose: 40 mg - Labs Labs: 02/28/17 05:10 02/28/17 05:10 PT 13.7 Seconds (9.9-11.8) H 02/25/17 15:00 INR 1.27 (0.93-1.08) H 02/25/17 15:00 APTT 28.7 Seconds (23.7-30.8) 02/25/17 15:00 - Constitutional Appears: Non-toxic, No Acute Distress - Head Exam Head Exam: ATRAUMATIC, NORMAL INSPECTION, NORMOCEPHALIC - Eye Exam Eye Exam: EOMI, PERRL - ENT Exam ENT Exam: Mucous Membranes Moist - Respiratory Exam Respiratory Exam: Clear to Ausculation Bilateral. absent: Rales, Rhonchi, Wheezes - Cardiovascular Exam Cardiovascular Exam: +S1, +S2. absent: Gallop, Rubs - GI/Abdominal Exam GI & Abdominal Exam: Soft. absent: Distended, Firm, Guarding, Rigid, Tenderness , Rebound - Neurological Exam Neurological Exam: Alert, Awake, Oriented x3 - Psychiatric Exam Psychiatric exam: Normal Affect, Normal Mood - Skin Skin Exam: Dry, Intact, Normal Color, Warm Assessment and Plan - Assessment and Plan (Free Text) Plan: 81 yo female with history of HTN, CVA with left sided weakness, DM, arthritis, atrial fibrillation on eliquis presented from PMD office with complaint of right -sided facial droop and confusion 1. TIA -Facial droop now resolved -Continue with neurochecks q4h -Reviewed CT Head -Reviewed MRI Brain -Neuro consulted - Dr. Harmon -PT evaluation -Patient will require extended physical therapy; TCU evaluation pending 2. HTN -Continue home lisinopril and coreg 3. DM -Consistent carb diet -Fingersticks ACHS -Low dose ISS 4. Atrial fibrillation -Continue eliquis -Continue coreg and digoxin 5. Prophylaxis -protonix - DVT- SCDs, eliquis Patient seen and case discussed with attending, Dr. Houston <Luan Houston - Last Filed: 03/10/17 19:27> Objective - Vital Signs/Intake and Output Vital Signs (last 24 hours): Temp Pulse Resp BP Pulse Ox 97.4 F L 75 16 177/97 H 97 03/02/17 12:00 03/02/17 12:00 03/02/17 12:00 03/02/17 12:00 03/02/17 06:00 - Labs Labs: 03/02/17 06:30 03/02/17 06:30 PT 13.7 Seconds (9.9-11.8) H 02/25/17 15:00 INR 1.27 (0.93-1.08) H 02/25/17 15:00 APTT 28.7 Seconds (23.7-30.8) 02/25/17 15:00 Attending/Attestation - Attestation I have personally seen and examined this patient.: Yes I have fully participated in the care of the patient.: Yes I have reviewed all pertinent clinical information, including history, physical exam and plan: Yes Notes (Text): 03/10/17 19:27 Medical record note made by the resident after discussion with my direction and input after the patient was personally seen and examined by me. I have reviewed the chart and agree that the record accurately reflects by personal performance of the history, physical exam, data review, and medical decision-making, in the course for the patient. I have also personally directed the plan of care.
[2017-02-28] MEDS: Digoxin 125 mcg (0.125 mg) Tab PO SCH (14:38)
[2017-03-01 06:15] LABS: ADD MANUAL DIFF? NO
[2017-03-01 06:19] LABS: BASO # 0.02 K/mm3 (0.0-2.0); BASO % 0.2 % (0.0-3.0); EOS # 0.2 (0.0-0.7); EOS % 1.8 % (1.5-5.0); GRAN # 4.83 (1.4-6.5); GRAN % 57.6 % (50.0-68.0); HEMATOCRIT 37.8 % (36.0-48.0); LYMPH # 2.8 (1.2-3.4); LYMPH % 33.8 % (22.0-35.0); MEAN CELL VOLUME 86.3 fL (80.0-105.0); MEAN CORPUSCULAR HEMOGLOBIN 28.1 pg (25.0-35.0); MEAN CORPUSCULAR HGB CONC 32.5 g/dl (31.0-37.0); MEAN PLATELET VOLUME 10.1 fl (7.0-11.0); MONO # 0.6 (0.1-0.6); MONO % 6.6 % (1.0-6.0); PLATELET COUNT 225 10^3/uL (120.0-450.0); RED CELL DISTRIBUTION WIDTH 16.5 % (11.5-14.5); WHITE BLOOD COUNT 8.4 10^3/ul (4.5-11.0)
[2017-03-01 06:40] LABS: ALB/GLOB RATIO 1.1 (1.1-1.8); ALKALINE PHOSPHATASE 44 U/L (38-133); ALT/SGPT 25 U/L (7-56); AST/SGOT 24 U/L (15-39); BILIRUBIN,TOTAL 0.6 mg/dL (0.2-1.3); BLOOD UREA NITROGEN 16 mg/dL (7-21); CALCIUM 9.5 mg/dL (8.4-10.5); CARBON DIOXIDE 30 mmol/L (21-33); CHLORIDE 103 mmol/L (98-107); GFR AFRICAN-AMERICAN > 60; GLUCOSE,RANDOM 128 mg/dL (70-110); POTASSIUM 4.1 mmol/L (3.6-5.0); SODIUM 139 mmol/L (132-148); TOTAL PROTEIN 6.2 g/dL (5.8-8.3)
[2017-03-01] MEDS: Pantoprazole 40 mg EC Tab PO SCH (07:33)
[2017-03-01] MEDS: Insulin Lispro (humaLOG) LOW Coverage SC SCH ×3 (08:00→17:12)
[2017-03-01] MEDS: Megestrol Acetate 40 mg/ml Cup PO SCH (09:45)
--- NOTE | 2017-03-01 12:41 | CP.PCM.PN ---
<Bucky Chaney - Last Filed: 03/01/17 13:17> Subjective - Date & Time of Evaluation Date of Evaluation: 03/01/17 Time of Evaluation: 12:37 - Subjective Subjective: Medicine progress note for Dr. Samuels/Dr. Houston service - Bucky Chaney PGY1 Patient seen and examined at bedside this morning. No acute events overnight or new complaints. Denies chest pain, palpitations, SOB. Patient pending potential TCU approval for physical therapy/rehabilitation. Objective - Vital Signs/Intake and Output Vital Signs (last 24 hours): Temp Pulse Resp BP Pulse Ox 97.9 F 55 L 18 158/96 H 95 03/01/17 05:48 03/01/17 10:00 03/01/17 05:48 03/01/17 09:43 03/01/17 05:48 Intake and Output: 03/01/17 03/01/17 06:59 18:59 Intake Total 120 Output Total 0 Balance 120 - Medications Medications: Current Medications Apixaban (Eliquis) 2.5 mg PO BID [facility] PRN Reason: Protocol Last Admin: 03/01/17 09:44 Dose: 2.5 mg Atorvastatin Calcium (Lipitor) 10 mg PO DAILY [facility] Last Admin: 03/01/17 09:45 Dose: 10 mg Carvedilol (Coreg) 3.125 mg PO BID [facility] Digoxin (Lanoxin) 0.125 mg PO 1400 [facility] Last Admin: 02/28/17 14:38 Dose: 0.125 mg Docusate Sodium (Colace) 100 mg PO BID [facility] Last Admin: 03/01/17 09:44 Dose: 100 mg Insulin Human Lispro (Humalog Low) 0 units SC ACHS [facility] PRN Reason: Protocol Last Admin: 03/01/17 12:00 Dose: 1 units Lisinopril (Zestril) 2.5 mg PO DAILY [facility] Last Admin: 03/01/17 09:43 Dose: 2.5 mg Megestrol Acetate (Megace) 400 mg PO DAILY [facility] Last Admin: 03/01/17 09:45 Dose: 400 mg Pantoprazole Sodium (Protonix Ec Tab) 40 mg PO ACB [facility] Last Admin: 03/01/17 07:33 Dose: 40 mg - Labs Labs: 03/01/17 05:45 03/01/17 05:45 PT 13.7 Seconds (9.9-11.8) H 02/25/17 15:00 INR 1.27 (0.93-1.08) H 02/25/17 15:00 APTT 28.7 Seconds (23.7-30.8) 02/25/17 15:00 - Constitutional Appears: Non-toxic, No Acute Distress - Head Exam Head Exam: ATRAUMATIC, NORMAL INSPECTION, NORMOCEPHALIC - Eye Exam Eye Exam: EOMI, PERRL - ENT Exam ENT Exam: Mucous Membranes Moist - Neck Exam Neck Exam: Normal Inspection - Cardiovascular Exam Cardiovascular Exam: Irregular Rhythm, +S1, +S2. absent: Gallop, Rubs - GI/Abdominal Exam GI & Abdominal Exam: Soft. absent: Distended, Firm, Guarding, Rigid, Tenderness , Rebound - Neurological Exam Neurological Exam: Alert, Awake, Oriented x3 Neuro motor strength exam: Left Upper Extremity: 5, Right Upper Extremity: 5, Left Lower Extremity: 5, Right Lower Extremity: 5 Additional comments: CN2-12 intact, no facial droop, sensory intact throughout - Psychiatric Exam Psychiatric exam: Normal Affect, Normal Mood - Skin Skin Exam: Dry, Intact, Normal Color, Warm Assessment and Plan - Assessment and Plan (Free Text) Plan: 81 yo female with history of HTN, CVA with left sided weakness, DM, arthritis, atrial fibrillation on eliquis presented from PMD office with complaint of right -sided facial droop and confusion 1. TIA -Facial droop now resolved -Continue with neurochecks q4h -Reviewed CT Head -Reviewed MRI Brain -Neuro consulted - Dr. Harmon -PT evaluation -Patient will require extended physical therapy; TCU evaluation pending 2. HTN -Continue home lisinopril and coreg 3. DM -Consistent carb diet -Fingersticks ACHS -Low dose ISS 4. Atrial fibrillation -Continue eliquis -Coreg on hold due to bradycardia -Continue digoxin 5. Prophylaxis -protonix - DVT- SCDs, eliquis 6. Disposition -Patient is pending approval to TCU for further rehabilitation/physical therapy. Will follow up with case finishing machine adjuster/social workers. Patient seen and case discussed with attending, Dr. Samuels <Elia Samuels - Last Filed: 04/01/17 09:35> Objective - Vital Signs/Intake and Output Vital Signs (last 24 hours): Temp Pulse Resp BP Pulse Ox 97.4 F L 75 16 177/97 H 97 03/02/17 12:00 03/02/17 12:00 03/02/17 12:00 03/02/17 12:00 03/02/17 06:00 - Labs Labs: 03/02/17 06:30 03/02/17 06:30 PT 13.7 Seconds (9.9-11.8) H 02/25/17 15:00 INR 1.27 (0.93-1.08) H 02/25/17 15:00 APTT 28.7 Seconds (23.7-30.8) 02/25/17 15:00 Attending/Attestation - Attestation I have personally seen and examined this patient.: Yes I have fully participated in the care of the patient.: Yes I have reviewed all pertinent clinical information, including history, physical exam and plan: Yes Notes (Text): 04/01/17 09:35 04/01/17 09:23 Medical note made by resident after discussion with my direction and input after patient personally seen by me. I have reviewed the chart and agree that the record reflects my personal performance of the history, physical, data review and decision making.
--- NOTE | 2017-03-01 12:56 | PN ---
DATE: 03/01/2017 The patient is feeling better off the Coreg. PHYSICAL EXAMINATION: VITAL SIGNS: Blood pressure is 133/80. The heart rate is atrial fibrillation in the 70s. NECK: Negative JVD. LUNGS: Without rales. HEART: S1, S2. EXTREMITIES: Without edema. LABORATORY DATA: The hemoglobin is 12.3. Glucose is 128. IMPRESSION: 1. Improved heart rate off of Coreg. 2. Malaise is better off of Coreg. 3. Diabetes mellitus. 4. Hypertension. 5. Hypercholesterolemia. PLAN: Given these findings, will keep the patient off the Coreg. Will continue the Eliquis. The sharona timothyjosefa would benefit from a TCU stay. Otilio Cedillo MD cc: [phone] TT: 03/01/2017 12:56:28 Confirmation # [id number] Dictation # [id number] md
[2017-03-01] MEDS: Digoxin 125 mcg (0.125 mg) Tab PO SCH (14:15)
[2017-03-02 06:37] VITALS: O2SAT 97
[2017-03-02 06:54] LABS: ADD MANUAL DIFF? NO
[2017-03-02 07:14] LABS: BASO # 0.02 K/mm3 (0.0-2.0); BASO % 0.2 % (0.0-3.0); EOS # 0.2 (0.0-0.7); EOS % 1.9 % (1.5-5.0); GRAN % 62.3 % (50.0-68.0); HEMATOCRIT 37.4 % (36.0-48.0); LYMPH # 2.7 (1.2-3.4); LYMPH % 29.4 % (22.0-35.0); MEAN CELL VOLUME 86.4 fL (80.0-105.0); MEAN CORPUSCULAR HEMOGLOBIN 28.2 pg (25.0-35.0); MEAN CORPUSCULAR HGB CONC 32.6 g/dl (31.0-37.0); MEAN PLATELET VOLUME 9.9 fl (7.0-11.0); MONO # 0.6 (0.1-0.6); MONO % 6.2 % (1.0-6.0); PLATELET COUNT 215 10^3/uL (120.0-450.0); RED CELL DISTRIBUTION WIDTH 16.3 % (11.5-14.5)
[2017-03-02 08:03] LABS: ALB/GLOB RATIO 1.1 (1.1-1.8); ALKALINE PHOSPHATASE 47 U/L (38-133); ALT/SGPT 27 U/L (7-56); AST/SGOT 21 U/L (15-39); BILIRUBIN,TOTAL 0.6 mg/dL (0.2-1.3); BLOOD UREA NITROGEN 17 mg/dL (7-21); CALCIUM 9.5 mg/dL (8.4-10.5); CARBON DIOXIDE 27 mmol/L (21-33); CHLORIDE 104 mmol/L (98-107); GFR AFRICAN-AMERICAN > 60; GLUCOSE,RANDOM 122 mg/dL (70-110); POTASSIUM 3.8 mmol/L (3.6-5.0); SODIUM 138 mmol/L (132-148); TOTAL PROTEIN 5.8 g/dL (5.8-8.3)
[2017-03-02] MEDS: Insulin Lispro (humaLOG) LOW Coverage SC SCH ×3 (08:11→12:23)
[2017-03-02] MEDS: Pantoprazole 40 mg EC Tab PO SCH (08:42)
[2017-03-02] MEDS: Megestrol Acetate 40 mg/ml Cup PO SCH (10:03)
--- NOTE | 2017-03-02 10:39 | PN ---
DATE: 03/02/2017 CARDIOLOGY FOLLOWUP The patient is in a chair, asymptomatic. PHYSICAL EXAMINATION: VITAL SIGNS: Blood pressure is 146/72. The heart rate is in the 60s. NECK: Negative JVD. LUNGS: Without rales. HEART: With S1, S2. EXTREMITIES: Without edema. LABORATORY DATA: Hemoglobin is 12.2. Chemistries: Glucose is 122. IMPRESSION: 1. Heart rate is stable off of Coreg. 2. Chronic diabetes mellitus. 3. Hypertension. 4. Hypercholesterolemia. PLAN: The patient is on Eliquis for atrial fibrillation. Telemetry is discontinued. The patient is for transfer to the TCU. Otilio Cedillo MD cc: [id number] TT: 03/02/2017 09:10:15 Confirmation # [id number] Dictation # [id number] kelli
--- NOTE | 2017-03-02 12:05 | CP.PCM.DIS ---
<Bucky Chaney - Last Filed: 03/05/17 10:07> Provider - Provider Date of Admission: 02/26/17 12:00 Attending physician: Elia Samuels MD Primary care physician: Elia Samuels MD Consults: Cardiology - Dr. Cedillo Neurology - Dr. Harmon Time Spent in preparation of Discharge (in minutes): 30 Hospital Course - Lab Results Lab Results: Most Recent Lab Values WBC 9.0 10^3/ul (4.5-11.0) 03/02/17 06:30 RBC 4.33 10^6/uL (3.5-6.1) 03/02/17 06:30 Hgb 12.2 gm/dL (12.0-16.0) 03/02/17 06:30 Hct 37.4 % (36.0-48.0) 03/02/17 06:30 MCV 86.4 fL (80.0-105.0) 03/02/17 06:30 MCH 28.2 pg (25.0-35.0) 03/02/17 06:30 MCHC 32.6 g/dl (31.0-37.0) 03/02/17 06:30 RDW 16.3 % (11.5-14.5) H 03/02/17 06:30 Plt Count 215 10^3/uL (120.0-450.0) 03/02/17 06:30 MPV 9.9 fl (7.0-11.0) 03/02/17 06:30 Gran % 62.3 % (50.0-68.0) 03/02/17 06:30 Lymph % (Auto) 29.4 % (22.0-35.0) 03/02/17 06:30 [place] % (Auto) 6.2 % (1.0-6.0) H 03/02/17 06:30 Eos % (Auto) 1.9 % (1.5-5.0) 03/02/17 06:30 Baso % (Auto) 0.2 % (0.0-3.0) 03/02/17 06:30 Gran # 5.60 (1.4-6.5) 03/02/17 06:30 Lymph # 2.7 (1.2-3.4) 03/02/17 06:30 [place] # 0.6 (0.1-0.6) 03/02/17 06:30 Eos # 0.2 (0.0-0.7) 03/02/17 06:30 Baso # 0.02 K/mm3 (0.0-2.0) 03/02/17 06:30 PT 13.7 Seconds (9.9-11.8) H 02/25/17 15:00 INR 1.27 (0.93-1.08) H 02/25/17 15:00 APTT 28.7 Seconds (23.7-30.8) 02/25/17 15:00 Sodium 138 mmol/L (132-148) 03/02/17 06:30 Potassium 3.8 mmol/L (3.6-5.0) 03/02/17 06:30 Chloride 104 mmol/L (98-107) 03/02/17 06:30 Carbon Dioxide 27 mmol/L (21-33) 03/02/17 06:30 Anion Gap 11 (10-20) 03/02/17 06:30 BUN 17 mg/dL (7-21) 03/02/17 06:30 Creatinine 0.7 mg/dL (0.5-1.4) 03/02/17 06:30 Est GFR ( Amer) > 60 03/02/17 06:30 Est GFR (Non-Af Amer) > 60 03/02/17 06:30 POC Glucose (mg/dL) 259 mg/dL (65-110) H 03/02/17 11:34 Random Glucose 122 mg/dL (70-110) H 03/02/17 06:30 Hemoglobin A1c 6.0 % (4.2-6.5) 02/25/17 15:00 Calcium 9.5 mg/dL (8.4-10.5) 03/02/17 06:30 Total Bilirubin 0.6 mg/dL (0.2-1.3) 03/02/17 06:30 AST 21 U/L (15-39) 03/02/17 06:30 ALT 27 U/L (7-56) 03/02/17 06:30 Alkaline Phosphatase 47 U/L (38-133) 03/02/17 06:30 Troponin I < 0.01 ng/mL D 02/25/17 15:00 Total Protein 5.8 g/dL (5.8-8.3) 03/02/17 06:30 Albumin 3.1 g/dL (3.0-4.8) 03/02/17 06:30 Globulin 2.7 gm/dL 03/02/17 06:30 Albumin/Globulin Ratio 1.1 (1.1-1.8) 03/02/17 06:30 Triglycerides 130 mg/dL (35-160) 02/25/17 15:00 Cholesterol 151 mg/dL (130-200) 02/25/17 15:00 LDL Cholesterol Direct 80 mg/dL (0-129) 02/25/17 15:00 HDL Cholesterol 47 mg/dL (29-60) 02/25/17 15:00 Urine Color Yellow (YELLOW) 02/26/17 15:45 Urine Appearance Clear (CLEAR) 02/26/17 15:45 Urine pH 6.0 (4.7-8.0) 02/26/17 15:45 Ur Specific [place] <= 1.005 (1.005-1.035) 02/26/17 15:45 Urine Protein Negative mg/dL (<30 mg/dL) 02/26/17 15:45 Urine Glucose (UA) Negative mg/dL (NEGATIVE) 02/26/17 15:45 Urine Ketones Negative mg/dL (NEGATIVE) 02/26/17 15:45 Urine Blood Negative (NEGATIVE) 02/26/17 15:45 Urine Nitrate Negative (NEGATIVE) 02/26/17 15:45 Urine Bilirubin Negative (NEGATIVE) 02/26/17 15:45 Urine Urobilinogen 0.2 E.U./dL (<1 E.U./dL) 02/26/17 15:45 Ur Leukocyte Esterase Small [place]/uL (NEGATIVE) H 02/26/17 15:45 Urine RBC Negative /hpf (0-2) 02/26/17 15:45 Urine WBC 5 - 10 /hpf (0-6) 02/26/17 15:45 Ur Epithelial Cells 1 - 3 /hpf (0-5) 02/26/17 15:45 Urine Bacteria Few (NEG) 02/26/17 15:45 Digoxin 1.4 ng/mL (0.8-2.0) 02/26/17 13:20 Blood Type O POSITIVE 02/25/17 15:00 Antibody Screen Negative 02/25/17 15:00 BBK History Checked Patient has bt 02/25/17 15:00 - Hospital Course Hospital Course: Patient is an 81 yo female with PMH of HTN, CVA with left sided weakness, DM, arthritis, atrial fibrillation on eliquis that originally presented to [facility] for right sided facial droop. Patient's sister reported that the patient was found the morning of presentation with right sided facial droop and confusion. She reported that her sister appeared normal the night prior. The patient presented to her PMD's office who evaluated her and instructed for her to go to the hospital for further care. A chest xray revealed no active cardiopulmonary disease. An EKG showed atrial fibrillation at 71bpm with left axis deviation, inferior infract (age undetermined) and anteroseptal infarct ( age undetermined) that was unchanged from prior EKG's. A CT head without contrast showed encephalomalacia predominantly involving the right posterior temporal parietal lobes and to a lesser extent portions of the posterior right frontal lobe. A brain MRI revealed no acute infarcts and extensive chronic periventricular white matter ischemic disease with an old right posterior parietal/frontal infarct. Carotid doppler showed bilateral 20-39% proximal ICA stenoses and antegrade flow in both vertebral arteries. Neurology was consulted. She was diagnosed with a transient ischemic attack. She reported improvement of her symptoms and was subsequently discharged to the transitional care unit for physical therapy/rehabilitation. She is on an ASA and statin for stroke prevention as well as eliquis for atrial fibrillation. Discharge Exam - Head Exam Head Exam: ATRAUMATIC, NORMAL INSPECTION, NORMOCEPHALIC - Eye Exam Eye Exam: EOMI, PERRL - Neck Exam Neck exam: Normal Inspection - Respiratory Exam Respiratory Exam: Clear to PA & Lateral. absent: Rales, Rhonchi, Wheezes - Cardiovascular Exam Cardiovascular Exam: RRR, +S1, +S2. absent: Gallop, Rubs - GI/Abdominal Exam GI & Abdominal Exam: Soft. absent: Distended, Firm, Guarding, Rebound, Tenderness - Neurological Exam Neurological exam: Alert, Oriented x3 - Psychiatric Exam Psychiatric exam: Normal Affect, Normal Mood - Skin Skin Exam: Dry, Intact, Normal Color, Warm Discharge Plan - Follow Up Plan Condition: STABLE Disposition: TRANSF TO SNF Referrals: Elia Samuels MD [Primary Care Provider] - <Elia Samuels - Last Filed: 04/01/17 09:35> Provider - Provider Date of Admission: 02/26/17 12:00 Attending physician: Elia Samuels MD Primary care physician: Elia Samuels MD Hospital Course - Lab Results Lab Results: Most Recent Lab Values WBC 9.0 10^3/ul (4.5-11.0) 03/02/17 06:30 RBC 4.33 10^6/uL (3.5-6.1) 03/02/17 06:30 Hgb 12.2 gm/dL (12.0-16.0) 03/02/17 06:30 Hct 37.4 % (36.0-48.0) 03/02/17 06:30 MCV 86.4 fL (80.0-105.0) 03/02/17 06:30 MCH 28.2 pg (25.0-35.0) 03/02/17 06:30 MCHC 32.6 g/dl (31.0-37.0) 03/02/17 06:30 RDW 16.3 % (11.5-14.5) H 03/02/17 06:30 Plt Count 215 10^3/uL (120.0-450.0) 03/02/17 06:30 MPV 9.9 fl (7.0-11.0) 03/02/17 06:30 Gran % 62.3 % (50.0-68.0) 03/02/17 06:30 Lymph % (Auto) 29.4 % (22.0-35.0) 03/02/17 06:30 [place] % (Auto) 6.2 % (1.0-6.0) H 03/02/17 06:30 Eos % (Auto) 1.9 % (1.5-5.0) 03/02/17 06:30 Baso % (Auto) 0.2 % (0.0-3.0) 03/02/17 06:30 Gran # 5.60 (1.4-6.5) 03/02/17 06:30 Lymph # 2.7 (1.2-3.4) 03/02/17 06:30 [place] # 0.6 (0.1-0.6) 03/02/17 06:30 Eos # 0.2 (0.0-0.7) 03/02/17 06:30 Baso # 0.02 K/mm3 (0.0-2.0) 03/02/17 06:30 PT 13.7 Seconds (9.9-11.8) H 02/25/17 15:00 INR 1.27 (0.93-1.08) H 02/25/17 15:00 APTT 28.7 Seconds (23.7-30.8) 02/25/17 15:00 Sodium 138 mmol/L (132-148) 03/02/17 06:30 Potassium 3.8 mmol/L (3.6-5.0) 03/02/17 06:30 Chloride 104 mmol/L (98-107) 03/02/17 06:30 Carbon Dioxide 27 mmol/L (21-33) 03/02/17 06:30 Anion Gap 11 (10-20) 03/02/17 06:30 BUN 17 mg/dL (7-21) 03/02/17 06:30 Creatinine 0.7 mg/dL (0.5-1.4) 03/02/17 06:30 Est GFR ( Amer) > 60 03/02/17 06:30 Est GFR (Non-Af Amer) > 60 03/02/17 06:30 POC Glucose (mg/dL) 282 mg/dL (65-110) H 03/03/17 11:05 Random Glucose 122 mg/dL (70-110) H 03/02/17 06:30 Hemoglobin A1c 6.0 % (4.2-6.5) 02/25/17 15:00 Calcium 9.5 mg/dL (8.4-10.5) 03/02/17 06:30 Total Bilirubin 0.6 mg/dL (0.2-1.3) 03/02/17 06:30 AST 21 U/L (15-39) 03/02/17 06:30 ALT 27 U/L (7-56) 03/02/17 06:30 Alkaline Phosphatase 47 U/L (38-133) 03/02/17 06:30 Troponin I < 0.01 ng/mL D 02/25/17 15:00 Total Protein 5.8 g/dL (5.8-8.3) 03/02/17 06:30 Albumin 3.1 g/dL (3.0-4.8) 03/02/17 06:30 Globulin 2.7 gm/dL 03/02/17 06:30 Albumin/Globulin Ratio 1.1 (1.1-1.8) 03/02/17 06:30 Triglycerides 130 mg/dL (35-160) 02/25/17 15:00 Cholesterol 151 mg/dL (130-200) 02/25/17 15:00 LDL Cholesterol Direct 80 mg/dL (0-129) 02/25/17 15:00 HDL Cholesterol 47 mg/dL (29-60) 02/25/17 15:00 Urine Color Yellow (YELLOW) 02/26/17 15:45 Urine Appearance Clear (CLEAR) 02/26/17 15:45 Urine pH 6.0 (4.7-8.0) 02/26/17 15:45 Ur Specific [place] <= 1.005 (1.005-1.035) 02/26/17 15:45 Urine Protein Negative mg/dL (<30 mg/dL) 02/26/17 15:45 Urine Glucose (UA) Negative mg/dL (NEGATIVE) 02/26/17 15:45 Urine Ketones Negative mg/dL (NEGATIVE) 02/26/17 15:45 Urine Blood Negative (NEGATIVE) 02/26/17 15:45 Urine Nitrate Negative (NEGATIVE) 02/26/17 15:45 Urine Bilirubin Negative (NEGATIVE) 02/26/17 15:45 Urine Urobilinogen 0.2 E.U./dL (<1 E.U./dL) 02/26/17 15:45 Ur Leukocyte Esterase Small [place]/uL (NEGATIVE) H 02/26/17 15:45 Urine RBC Negative /hpf (0-2) 02/26/17 15:45 Urine WBC 5 - 10 /hpf (0-6) 02/26/17 15:45 Ur Epithelial Cells 1 - 3 /hpf (0-5) 02/26/17 15:45 Urine Bacteria Few (NEG) 02/26/17 15:45 Digoxin 1.4 ng/mL (0.8-2.0) 02/26/17 13:20 Blood Type O POSITIVE 02/25/17 15:00 Antibody Screen Negative 02/25/17 15:00 BBK History Checked Patient has bt 02/25/17 15:00 Attending/Attestation - Attestation I have personally seen and examined this patient.: Yes I have fully participated in the care of the patient.: Yes I have reviewed all pertinent clinical information, including history, physical exam and plan: Yes Notes (Text): 04/01/17 09:35 04/01/17 09:23 Medical note made by resident after discussion with my direction and input after patient personally seen by me. I have reviewed the chart and agree that the record reflects my personal performance of the history, physical, data review and decision making.
[2017-03-02 12:24] VITALS: BP 177/97; PULSE 75; RESP 16; TEMP 97.4
[2017-03-02] MEDS: Digoxin 125 mcg (0.125 mg) Tab PO SCH (14:17)
[2017-03-02 14:19] VITALS: PULSE 67
== END 2017-03-02 17:27 | DRG 69 ==
LOC: ED 14:07 → ERH 16:51 → 2RNO 18:30 → OBSVTOIN 02-26 12:00
PROVIDERS: ADMIT Internal Medicine; ATTEND Internal Medicine
DX: G45.9 Transient cerebral ischemic attack, unspecified (principal); E11.649 Type 2 diabetes mellitus with hypoglycemia without coma; I69.354 Hemiplegia and hemiparesis following cerebral infarction affecting left non-dominant side; I48.91 Unspecified atrial fibrillation; R00.1 Bradycardia, unspecified; I10 Essential (primary) hypertension; E78.00 Pure hypercholesterolemia, unspecified; K59.00 Constipation, unspecified; M19.90 Unspecified osteoarthritis, unspecified site; E78.5 Hyperlipidemia, unspecified; I65.23 Occlusion and stenosis of bilateral carotid arteries; Z79.84 Long term (current) use of oral hypoglycemic drugs; Z79.01 Long term (current) use of anticoagulants

== ENCOUNTER 2017-03-02 17:37 | Inpatient (IN) | payer OTHER, MEDICARE ==
[2017-03-02 17:56] VITALS: RESP 18
[2017-03-02 18:21] VITALS: BMI 20.4
[2017-03-02] MEDS: Insulin Lispro (humaLOG) LOW Coverage SC SCH (22:07)
[2017-03-03] MEDS: Pantoprazole 40 mg EC Tab PO SCH (05:42)
[2017-03-03] MEDS: Insulin Lispro (humaLOG) LOW Coverage SC SCH ×4 (06:36→23:11)
[2017-03-03 09:10] LABS: ADD MANUAL DIFF? NO
[2017-03-03 09:25] LABS: BASO # 0.02 K/mm3 (0.0-2.0); BASO % 0.2 % (0.0-3.0); EOS # 0.2 (0.0-0.7); EOS % 1.9 % (1.5-5.0); GRAN # 5.73 (1.4-6.5); GRAN % 67.5 % (50.0-68.0); LYMPH # 2.1 (1.2-3.4); LYMPH % 24.5 % (22.0-35.0); MEAN CELL VOLUME 87.6 fL (80.0-105.0); MEAN CORPUSCULAR HEMOGLOBIN 28.4 pg (25.0-35.0); MEAN CORPUSCULAR HGB CONC 32.4 g/dl (31.0-37.0); MEAN PLATELET VOLUME 10.4 fl (7.0-11.0); MONO # 0.5 (0.1-0.6); MONO % 5.9 % (1.0-6.0); PLATELET COUNT 250 10^3/uL (120.0-450.0); RED CELL DISTRIBUTION WIDTH 16.7 % (11.5-14.5); WHITE BLOOD COUNT 8.5 10^3/ul (4.5-11.0)
[2017-03-03 09:50] LABS: ALB/GLOB RATIO 1.3 (1.1-1.8); ALKALINE PHOSPHATASE 50 U/L (38-133); ALT/SGPT 23 U/L (7-56); AST/SGOT 26 U/L (15-39); BILIRUBIN,TOTAL 0.8 mg/dL (0.2-1.3); BLOOD UREA NITROGEN 18 mg/dL (7-21); CALCIUM 10.1 mg/dL (8.4-10.5); CARBON DIOXIDE 28 mmol/L (21-33); CHLORIDE 101 mmol/L (95-110); GFR AFRICAN-AMERICAN > 60; GLUCOSE,RANDOM 206 mg/dL (70-110); POTASSIUM 4.1 mmol/L (3.6-5.0); SODIUM 139 mmol/L (132-148)
--- NOTE | 2017-03-03 09:59 | CP.PCM.HP ---
<Bucky Chaney - Last Filed: 03/03/17 21:52> History of Present Illness - History of Present Illness History of Present Illness: H&P for Dr. Samuels/Dr. Houston service - Bucky Boylerudolph PGY1 HPI: Patient is a 81yo female with past medical history of hypertension, CVA with left-sided weakness, DM type 2, arthritis, atrial fibrillation on eliquis who originally presented to [facility] for facial droop. Patient was seen earlier that day by her PMD who had noted the facial droop and called EMS. On arrival to the ED, the patient's facial droop appeared resolved. Family reported that she had an elevated blood pressure that morning and had an episode of non-bilious, non- bloody vomiting. In the ED, a CT Head was done which revealed encephalomalacia predominantly involving the right posterior temporal and parietal lobes, nonspecific white matter changes and generalized atrophy. A chest xray revealed no active disease. An EKG showed atrial fibrillation at 71bpm with left axis deviation, inferior infarct (age undetermined), anteroseptal infarct (age undetermined) that was unchanged from prior EKG's. Carotid ultrasound revealed 20-39% proximal ICA stenoses. Brain MRI showed extensive chronic periventricular white matter ischemic disease with an old right posterior parietal/front infract, however no acute infarcts. The patient subsequently reported improvement of her symptoms and was discharged to the transitional care unit for physical therapy and rehabilitation. She denied chest pain, palpitations, SOB, abdominal pain, nausea, vomiting. 12 point ROS negative unless states otherwise above PMHx: HTN, CVA with left sided weakness, DM, arthritis, a. fib on eliquis PSHx: right wrist (8 yo) Social hx: denies smoking, alcohol use, illicit drug use, lives alone Allergies: fish PMD: Dr. Samuels Present on Admission - Present on Admission Any Indicators Present on Admission: No Past Patient History - Infectious Disease Hx of Infectious Diseases: None - Past Social History Smoking Status: Never Smoked - CARDIAC Hx Cardiac Disorders: Yes (afib) Hx Hypertension: Yes - PULMONARY Hx Respiratory Disorders: No - NEUROLOGICAL HX Cerebrovascular Accident: Yes (Left sided weakness.) Hx Transient Ischemic Attacks (TIA): Yes - HEENT Hx HEENT Problems: No - RENAL Hx Chronic Kidney Disease: No - ENDOCRINE/METABOLIC Hx Diabetes Mellitus Type 1: Yes - HEMATOLOGICAL/ONCOLOGICAL Hx Blood Disorders: No - INTEGUMENTARY Hx Dermatological Problems: No - MUSCULOSKELETAL/RHEUMATOLOGICAL Hx Falls: Yes - GASTROINTESTINAL Hx Gastrointestinal Disorders: No - GENITOURINARY/GYNECOLOGICAL Hx Genitourinary Disorders: No Hx Reproductive Disorders: No - PSYCHIATRIC Hx Psychophysiologic Disorder: No - SURGICAL HISTORY Hx Orthopedic Surgery: Yes Other/Comment: right wrist x10 years ago, bunionectomy - ANESTHESIA Hx Anesthesia Reactions: (UNK) Hx Malignant Hyperthermia: (UNK) Meds Allergies/Adverse Reactions: Allergies Allergy/AdvReac Type Severity Reaction Status Date / Time FISH Allergy RASH Verified 03/09/17 23:02 Physical Exam - Constitutional Appears: Well, Non-toxic, No Acute Distress - Head Exam Head Exam: ATRAUMATIC, NORMAL INSPECTION, NORMOCEPHALIC - Eye Exam Eye Exam: EOMI, PERRL - ENT Exam ENT Exam: Mucous Membranes Moist - Neck Exam Neck exam: Positive for: Normal Inspection - Respiratory Exam Respiratory Exam: Clear to Auscultation Bilateral. absent: Rales, Rhonchi, Wheezes - Cardiovascular Exam Cardiovascular Exam: RRR, +S1, +S2. absent: Gallop, Rubs - GI/Abdominal Exam GI & Abdominal Exam: Soft. absent: Distended, Firm, Guarding, Tenderness - Extremities Exam Extremities exam: Positive for: normal inspection. Negative for: pedal edema - Neurological Exam Neurological exam: Alert, CN II-XII Intact, Oriented x3 - Psychiatric Exam Psychiatric exam: Normal Affect, Normal Mood - Skin Skin Exam: Dry, Intact, Normal Color, Warm Results - Vital Signs Recent Vital Signs: Last Vital Signs Temp 98.1 F 03/02/17 17:58 Pulse 83 03/03/17 06:14 Resp 18 03/02/17 17:58 BP 162/92 H 03/03/17 06:14 Pulse Ox - Labs Result Diagrams: 03/03/17 07:00 03/03/17 07:00 Labs: Laboratory Results - last 24 hr 03/03/17 03/03/17 07:00 07:00 WBC 8.5 RBC 4.68 Hgb 13.3 Hct 41.0 MCV 87.6 MCH 28.4 MCHC 32.4 RDW 16.7 H Plt Count 250 MPV 10.4 Gran % 67.5 Lymph % (Auto) 24.5 [place] % (Auto) 5.9 Eos % (Auto) 1.9 Baso % (Auto) 0.2 Gran # 5.73 Lymph # 2.1 [place] # 0.5 Eos # 0.2 Baso # 0.02 Sodium 139 Potassium 4.1 Chloride 101 Carbon Dioxide 28 Anion Gap 14 BUN 18 Creatinine 0.8 Est GFR ( Amer) > 60 Est GFR (Non-Af Amer) > 60 Random Glucose 206 H Calcium 10.1 Total Bilirubin 0.8 AST 26 ALT 23 Alkaline Phosphatase 50 Total Protein 7.0 Albumin 3.9 Globulin 3.1 Albumin/Globulin Ratio 1.3 Assessment & Plan - Assessment and Plan (Free Text) Plan: 81 yo female with history of HTN, CVA with left sided weakness, DM, arthritis, atrial fibrillation on eliquis presented from PMD office with complaint of right -sided facial droop and confusion 1. TIA -Facial droop now resolved -Reviewed CT Head, Brain MRI, Chest Xray, EKG and carotid doppler -Neuro was consulted and recommendations reviewed - Dr. Harmon -Recommend continuing physical therapy in the TCU as tolerated -OOB to chair -Heart Healthy diet 2. HTN -Continue home lisinopril and coreg 3. DM type 2 -Consistent carb diet -Fingersticks ACHS -Low dose ISS 4. Atrial fibrillation -Continue eliquis -Continue digoxin 5. GI/DVT prophylaxis -Protonix/Eliquis 6. Disposition -Patient undergoing physical therapy as tolerated in the TCU Patient seen and case discussed with attending, Dr. Houston - Date & Time Date: 03/03/17 Time: 10:11 <Luan Houston - Last Filed: 03/10/17 19:29> Results - Vital Signs Recent Vital Signs: Last Vital Signs Temp 99.2 F 03/09/17 16:00 Pulse 68 03/10/17 10:28 Resp 18 03/09/17 16:00 BP 128/73 03/10/17 10:28 Pulse Ox 99 03/09/17 16:00 - Labs Result Diagrams: 03/07/17 06:30 03/07/17 06:30 Attending/Attestation - Attestation I have personally seen and examined this patient.: Yes I have fully participated in the care of the patient.: Yes I have reviewed all pertinent clinical information: Yes Notes (Text): 03/10/17 19:29 Medical record note made by the resident after discussion with my direction and input after the patient was personally seen and examined by me. I have reviewed the chart and agree that the record accurately reflects by personal performance of the history, physical exam, data review, and medical decision-making, in the course for the patient. I have also personally directed the plan of care.
[2017-03-03] MEDS: Digoxin 125 mcg (0.125 mg) Tab PO SCH (10:31)
[2017-03-03] MEDS ORDERED: Megestrol Acetate 40 mg/ml Cup PO SCH (11:42)
--- NOTE | 2017-03-03 18:58 | CON ---
DATE: 03/03/2017 CHIEF COMPLAINT: Recent TIA episode, in TR now for rehabilitation. HISTORY OF PRESENT ILLNESS: This is an 81-year-old woman with history of hypertension, history of at rial fibrillation on Eliquis, history of old right posterior parietal frontal infarct with residual l eft-sided weakness, type 2 diabetes mellitus, hypertension, dyslipidemia, presented to the [facility] on 02/26/2017 with transient right facial droop, right side paresthesias which have resolved in the ER prior to admission. An MRI of the brain showed no acute intracranial abnormality, just an old rig ht posterior parietal frontal infarct with chronic ischemic changes. She was called initially at [facility] for change in mental status and generalized weakness and she did have a low blood glucose leve l of 60 on 02/26/2017 which made her generally weaker. Currently she is in [facility] for rehabilitation, wh ich she will get physical and occupational therapy. PAST MEDICAL HISTORY: Old right posterior parietal frontal infarct with residual left-sided weakness , type 2 diabetes mellitus, hypertension, dyslipidemia. REVIEW OF SYSTEMS: A 14-point review of systems is negative except for the HPI. MEDICATIONS: Reviewed via nurse's reconciliation sheet. ALLERGIES: ALLERGIC TO FISH, GIVES HER A RASH. SOCIAL HISTORY: No illicit drug use, smoking, or ETOH abuse. FAMILY HISTORY: Noncontributory. PHYSICAL EXAMINATION: VITAL SIGNS: Temperature of 98.4, pulse rate 65, blood pressure 138/77, respiratory rate of 18, oxyg en saturation 99% on room air. GENERAL: The patient is sitting up in bed in no acute distress. HEENT: Atraumatic, normocephalic. PERRLA. Extraocular muscles intact. NECK: Supple, no JVD, no adenopathy noted. LUNGS: Clear to auscultation. No adventitious sounds. HEART: S1, S2, normal rate and rhythm. No murmurs, rubs, or gallops. ABDOMEN: Soft, nontender, nondistended. Bowel sounds are present. EXTREMITIES: No clubbing, no cyanosis. Peripheral pulses 2+ felt bilaterally. NEUROLOGIC: The patient is alert, oriented to person, place, month and year. Recall at 5 minutes is 1/3. Poor attention span, slow thought process. Cranial nerves II through XII are intact. MOTOR: Has residual mild left side weakness 4+ to 5-/5 on the right side. Slight increased tone on the left side due to old strokes in the past and weakness, right side is intact. DTRs are 2+ through out and 1 at the knees and absent at the ankles. SENSORY: Decreased light touch and pinprick up to the calves bilaterally. Toes are downgoing bilate rally. Decreased vibration of the toes. GAIT: Deferred for now. LABORATORIES: Sodium 139, potassium 4.1, chloride of 101, carbon dioxide 28, BUN of 18, creatinine 0 .6, random glucose 206. ASSESSMENT AND PLAN: This is an 81-year-old woman with past medical history of atrial fibrillation o n Eliquis, history of old right posterior parietal frontal lobe infarct with residual left-sided weak ness, type 2 diabetes mellitus, hypertension, dyslipidemia, who presented to [facility] for transient right facial droop, right-sided weakness, which had resolved. MRI of the brain showed no acute intracranial abnormalities, an old right posterior parietal lobe infarct with chronic ischem ic changes. She had transient generalized weakness further which she was found to have low blood glu cose level of 60 on 02/26/2017, and is currently in TRCU for underlying deconditioned state for physica l and occupational therapy. At this time, she probably had a transient ischemic event prior to her T RCU episode with generalized weakness from drops in low blood sugars and also drops in her blood pres sures. At this time, recommend: 1. Continue with Eliquis 2.5 mg p.o. b.i.d. for underlying atrial fibrillation, Lipitor 20 mg for dy slipidemia, stroke prevention. 2. Keep her blood sugars between 140 to 180 and avoid hypoglycemic events. 3. Keep blood pressures between 130 to 140 and avoid sudden drops in her systolic or diastolic event s. 4. Continue with physical and occupational therapy for underlying deconditioned state. Thank you for this consult. Will sign off. Bulmaro Harmon MD cc: [id number] TT: 03/03/2017 18:57:54 Confirmation # [id number] Dictation # [id number] barbara
[2017-03-04] MEDS: Pantoprazole 40 mg EC Tab PO SCH (05:30)
[2017-03-04] MEDS: Insulin Lispro (humaLOG) LOW Coverage SC SCH ×4 (07:22→23:20)
[2017-03-04] MEDS: Digoxin 125 mcg (0.125 mg) Tab PO SCH (10:55)
[2017-03-04] MEDS: Megestrol Acetate 40 mg/ml Cup PO SCH (10:55)
[2017-03-05] MEDS: Pantoprazole 40 mg EC Tab PO SCH (07:48)
[2017-03-05] MEDS: Insulin Lispro (humaLOG) LOW Coverage SC SCH ×4 (07:49→22:34)
[2017-03-05] MEDS: Megestrol Acetate 40 mg/ml Cup PO SCH ×2 (10:00→10:39)
[2017-03-05] MEDS: Digoxin 125 mcg (0.125 mg) Tab PO SCH (10:39)
[2017-03-05] MEDS ORDERED: Promethazine 6.25 MG/5 ML CUP PO PRN (11:13)
--- NOTE | 2017-03-05 13:37 | PN ---
DATE: 03/05/[address] Samuels who is off today. I saw her in the transitional care unit, sitting out of bed to chair. She is comfortable. She is ea ting her breakfast. She is telling me she is having a cough. She has a past medical history of hype rtension, cerebrovascular accident with left-sided weakness, diabetes, atrial fibrillation. She had a facial droop that is better. She needs physical therapy before she goes home. PHYSICAL EXAMINATION: VITAL SIGNS: 98.4 temp, 54 pulse, 138/77 blood pressure, 18 respiratory rate, 99% O2 sat on room air . HEAD: Atraumatic, normocephalic. Throat is moist. NECK: Supple. HEART: Regular rate. LUNGS: Decreased breath sounds, but clear to auscultation. ABDOMEN: Soft. EXTREMITIES: No edema. MEDICATIONS: She is currently on aspirin, Colace, Coreg, Eliquis, insulin, Lanoxin, Lipitor, Megace, Protonix, Tylenol, Zestril, Zofran and I added some Phenergan for her cough. LABORATORY DATA: She had an 8.5 white count, 13.3 hemoglobin, 250 platelets. Last blood sugar was 1 91. They have been all about 200-250. She has a 139 sodium, potassium 4.1, BUN 18, creatinine 0.8, calcium is 10.1, AST 26, ALT 23, alkaline phosphatase 50, total protein 7.0. On her meds, she is on insulin coverage and Megace. I am going to add some Januvia to her while she is on the Megace because her blood sugars were all in the 200s for the most part and I am kind of con cerned, so will try some Januvia 50. We will add some Phenergan DM. Will check her labs tomorrow. She is here for transient ischemic attack, hypertension, diabetes, atrial fibrillation and weakness. Dandy Mark DO cc: [id number] TT: 03/05/2017 13:36:28 Confirmation # [id number] Dictation # [id number] barbara
[2017-03-06] MEDS: Pantoprazole 40 mg EC Tab PO SCH (05:40)
[2017-03-06] MEDS: Insulin Lispro (humaLOG) LOW Coverage SC SCH ×4 (07:31→22:25)
[2017-03-06 07:53] LABS: HEMATOCRIT 36.2 % (36.0-48.0); MEAN CELL VOLUME 87.4 fL (80.0-105.0); MEAN PLATELET VOLUME 10.3 fl (7.0-11.0); RED CELL DISTRIBUTION WIDTH 16.4 % (11.5-14.5); WHITE BLOOD COUNT 9.5 10^3/ul (4.5-11.0)
[2017-03-06 08:11] LABS: ALB/GLOB RATIO 1.2 (1.1-1.8); ALKALINE PHOSPHATASE 50 U/L (38-133); ALT/SGPT 30 U/L (7-56); AST/SGOT 18 U/L (15-39); BILIRUBIN,TOTAL 0.4 mg/dL (0.2-1.3); BLOOD UREA NITROGEN 21 mg/dL (7-21); CARBON DIOXIDE 27 mmol/L (21-33); CHLORIDE 102 mmol/L (95-110); GFR AFRICAN-AMERICAN > 60; GLUCOSE,RANDOM 122 mg/dL (70-110); POTASSIUM 4.1 mmol/L (3.6-5.0); SODIUM 137 mmol/L (132-148); TOTAL PROTEIN 5.7 g/dL (5.8-8.3)
[2017-03-06] MEDS: Megestrol Acetate 40 mg/ml Cup PO SCH (10:07)
[2017-03-06] MEDS: Digoxin 125 mcg (0.125 mg) Tab PO SCH (10:11)
--- NOTE | 2017-03-06 11:23 | PN ---
DATE: 03/06/2017 She is sitting out of bed to chair in the transitional care unit. She is feeling well. She is eatin g well. Good spirits, trying physical therapy, smiling and happy to do the therapy. She is on aspir in, Colace, Coreg, Eliquis, insulin, Januvia, Lanoxin, Lipitor, Megace, Phenergan DM, which she says helped her cough a lot, brought up a lot of phlegm, and she is feeling better. Protonix, Tylenol, Z estril and Zofran. PHYSICAL EXAMINATION: VITAL SIGNS: She has a 98.5 temp, 72 pulse, 121/70 blood pressure, 18 respiratory rate, 99% O2 sat o n room air. HEAD: Atraumatic, normocephalic. She is smiling, comfortable, in good spirits. Throat is moist. NECK: Supple. HEART: Regular rate. LUNGS: Decreased breath sounds but clear to auscultation. No wheezes, no rhonchi, no rales. ABDOMEN: Soft, nontender, positive bowel sounds. EXTREMITIES: Have no edema. LABORATORY DATA: She has a 9.5, white count, 11.6 hemoglobin, 36.2 hematocrit with 213 platelets. S odium 137, potassium 4.1, BUN 21, creatinine 0.8, GFR is greater than 60, sugar is 122, calcium is 9, total bili is 0.4, AST is 18, ALT is 30, alk phos is 50, total protein 5.7, albumin is 3.1. ASSESSMENT AND PLAN: She was seen by Dr. Harmon. She had a cough. She had a transient ischemic att ack, hypertension, diabetes, atrial fibrillation, and she was weak. We will continue with the medica tions, physical therapy. I will check her labs tomorrow. I think she is doing great. I encouraged her to eat, participate, and hopefully she will do very well and be able to be home at the end of her time in TCU. I am seeing her for Dr. Samuels who is off this week. Dandy Mark DO cc: [id number] TT: 03/06/2017 11:22:41 Confirmation # [id number] Dictation # [id number] mn
[2017-03-07] MEDS: Pantoprazole 40 mg EC Tab PO SCH (06:17)
[2017-03-07 07:07] LABS: MEAN CELL VOLUME 87.1 fL (80.0-105.0); MEAN CORPUSCULAR HEMOGLOBIN 28.1 pg (25.0-35.0); MEAN CORPUSCULAR HGB CONC 32.3 g/dl (31.0-37.0); MEAN PLATELET VOLUME 9.9 fl (7.0-11.0); RED CELL DISTRIBUTION WIDTH 16.3 % (11.5-14.5); WHITE BLOOD COUNT 8.5 10^3/ul (4.5-11.0)
[2017-03-07 07:29] LABS: ALB/GLOB RATIO 1.1 (1.1-1.8); ALKALINE PHOSPHATASE 49 U/L (38-133); ALT/SGPT 28 U/L (7-56); AST/SGOT 20 U/L (15-39); BILIRUBIN,TOTAL 0.5 mg/dL (0.2-1.3); BLOOD UREA NITROGEN 24 mg/dL (7-21); CARBON DIOXIDE 28 mmol/L (21-33); CHLORIDE 102 mmol/L (98-107); GFR AFRICAN-AMERICAN > 60; GLUCOSE,RANDOM 134 mg/dL (70-110); POTASSIUM 4.6 mmol/L (3.6-5.0); SODIUM 138 mmol/L (132-148); TOTAL PROTEIN 5.8 g/dL (5.8-8.3)
[2017-03-07] MEDS: Insulin Lispro (humaLOG) LOW Coverage SC SCH ×4 (08:28→22:00)
[2017-03-07] MEDS: Digoxin 125 mcg (0.125 mg) Tab PO SCH (10:36)
[2017-03-07] MEDS: Megestrol Acetate 40 mg/ml Cup PO SCH (10:36)
--- NOTE | 2017-03-07 10:54 | CP.PCM.PN ---
Subjective - Date & Time of Evaluation Date of Evaluation: 03/07/17 Time of Evaluation: 10:51 - Subjective Subjective: Medicine progress note for Dr. Samuels/Dr. Houston service - Bucky Chaney PGY1 Patient seen and examined this morning in the TCU. Reports feeling well and working with physical therapy. No acute overnight events or new complaints reported. Denies chest pain, palpitations, SOB. Encouraged to continue working with PT. Objective - Vital Signs/Intake and Output Vital Signs (last 24 hours): Temp Pulse Resp BP Pulse Ox 98 F 70 18 107/63 98 03/06/17 16:00 03/06/17 17:42 03/06/17 16:00 03/06/17 17:42 03/06/17 16:00 - Medications Medications: Current Medications Acetaminophen (Tylenol 325mg Tab) 650 mg PO Q6H PRN; Protocol PRN Reason: Pain, moderate (4-7) Last Admin: 03/02/17 19:20 Dose: 650 mg Apixaban (Eliquis) 2.5 mg PO 0800,1800 [facility] Last Admin: 03/07/17 08:28 Dose: 2.5 mg Aspirin (Aspirin Chewable) 81 mg PO DAILY [facility] Last Admin: 03/07/17 10:35 Dose: 81 mg Atorvastatin Calcium (Lipitor) 10 mg PO DIN [facility] Last Admin: 03/06/17 17:42 Dose: 10 mg Carvedilol (Coreg) 3.125 mg PO 0800,1800 [facility] PRN Reason: Protocol Last Admin: 03/07/17 08:28 Dose: 3.125 mg Digoxin (Lanoxin) 0.125 mg PO DAILY [facility] PRN Reason: Protocol Last Admin: 03/07/17 10:36 Dose: 0.125 mg Docusate Sodium (Colace) 100 mg PO BID [facility] PRN Reason: Protocol Last Admin: 03/07/17 10:36 Dose: 100 mg Insulin Human Lispro (Humalog Low) 0 units SC ACHS [facility] PRN Reason: Protocol Last Admin: 03/07/17 08:28 Dose: Not Given Lisinopril (Zestril) 2.5 mg PO BID [facility] PRN Reason: Protocol Last Admin: 03/07/17 10:35 Dose: 2.5 mg Megestrol Acetate (Megace) 400 mg PO 1000 [facility] PRN Reason: Protocol Last Admin: 03/07/17 10:36 Dose: 400 mg Ondansetron HCl (Zofran Inj) 4 mg IVP Q8H PRN PRN Reason: Nausea/Vomiting Pantoprazole Sodium (Protonix Ec Tab) 40 mg PO 0630 JALIL PRN Reason: Protocol Last Admin: 03/07/17 06:17 Dose: 40 mg Promethazine HCl (Phenergan Syrup) 6.25 mg PO Q4H PRN PRN Reason: Cough Last Admin: 03/05/17 15:58 Dose: 6.25 mg Sitagliptin Phosphate (Januvia) 50 mg PO DAILY [facility] Last Admin: 03/07/17 10:35 Dose: 50 mg - Labs Labs: 03/07/17 06:30 03/07/17 06:30 - Constitutional Appears: Well, Non-toxic, No Acute Distress - Head Exam Head Exam: ATRAUMATIC, NORMAL INSPECTION, NORMOCEPHALIC - Eye Exam Eye Exam: EOMI, PERRL - ENT Exam ENT Exam: Mucous Membranes Moist - Respiratory Exam Respiratory Exam: Clear to Ausculation Bilateral. absent: Rales, Rhonchi, Wheezes - Cardiovascular Exam Cardiovascular Exam: Irregular Rhythm, +S1, +S2. absent: Gallop, Rubs - GI/Abdominal Exam GI & Abdominal Exam: Soft. absent: Distended, Firm, Guarding, Rigid, Tenderness , Rebound - Neurological Exam Neurological Exam: Alert, Awake, Oriented x3 - Psychiatric Exam Psychiatric exam: Normal Affect, Normal Mood - Skin Skin Exam: Dry, Intact, Normal Color, Warm Assessment and Plan - Assessment and Plan (Free Text) Plan: 81 yo female with history of HTN, CVA with left sided weakness, DM, arthritis, atrial fibrillation on eliquis presented from PMD office with complaint of right -sided facial droop and confusion 1. TIA -Facial droop now resolved -Reviewed CT Head, Brain MRI, Chest Xray, EKG and carotid doppler -Neuro was consulted and recommendations reviewed - Dr. Harmon -Recommend continuing physical therapy in the TCU as tolerated -OOB to chair -Heart Healthy diet 2. HTN -Continue home lisinopril and coreg 3. DM type 2 -Consistent carb diet -Fingersticks ACHS -Low dose ISS 4. Atrial fibrillation -Continue eliquis -Continue digoxin 5. GI/DVT prophylaxis -Protonix/Eliquis 6. Disposition -Patient has been doing well with physical therapy. Encouraged good nutritional intake and to continue working with physical therapy for rehabilitation. Patient seen and case discussed with attending, Dr. Samuels
[2017-03-08] MEDS: Pantoprazole 40 mg EC Tab PO SCH (06:13)
[2017-03-08] MEDS: Insulin Lispro (humaLOG) LOW Coverage SC SCH ×4 (06:57→22:46)
[2017-03-08] MEDS: Digoxin 125 mcg (0.125 mg) Tab PO SCH (09:37)
[2017-03-08] MEDS: Megestrol Acetate 40 mg/ml Cup PO SCH (09:38)
[2017-03-09] MEDS: Pantoprazole 40 mg EC Tab PO SCH (06:04)
[2017-03-09] MEDS: Insulin Lispro (humaLOG) LOW Coverage SC SCH ×4 (06:38→22:03)
[2017-03-09] MEDS: Megestrol Acetate 40 mg/ml Cup PO SCH (10:00)
[2017-03-09] MEDS: Digoxin 125 mcg (0.125 mg) Tab PO SCH (10:00)
--- NOTE | 2017-03-09 14:28 | CP.PCM.PN ---
Subjective - Date & Time of Evaluation Date of Evaluation: 03/09/17 Time of Evaluation: 08:30 - Subjective Subjective: Medicine progress note for Dr. Samuels/Dr. Houston service - Bucky Chaney PGY1 patient seen and examined at bedside this morning. no acute overnight events or new complaints. denies chest pain, palpitations, sob. Patient scheduled for discharge tomorrow. Objective - Vital Signs/Intake and Output Vital Signs (last 24 hours): Temp Pulse Resp BP Pulse Ox 98.7 F 61 18 120/65 98 03/09/17 10:00 03/09/17 10:00 03/09/17 10:00 03/09/17 10:00 03/09/17 10:00 - Medications Medications: Current Medications Acetaminophen (Tylenol 325mg Tab) 650 mg PO Q6H PRN; Protocol PRN Reason: Pain, moderate (4-7) Last Admin: 03/02/17 19:20 Dose: 650 mg Apixaban (Eliquis) 2.5 mg PO 0800,1800 [facility] Last Admin: 03/09/17 08:19 Dose: 2.5 mg Aspirin (Aspirin Chewable) 81 mg PO DAILY [facility] Last Admin: 03/09/17 10:02 Dose: 81 mg Atorvastatin Calcium (Lipitor) 10 mg PO DIN [facility] Last Admin: 03/08/17 17:51 Dose: 10 mg Carvedilol (Coreg) 3.125 mg PO 0800,1800 [facility] PRN Reason: Protocol Last Admin: 03/09/17 08:19 Dose: 3.125 mg Digoxin (Lanoxin) 0.125 mg PO DAILY [facility] PRN Reason: Protocol Last Admin: 03/09/17 10:00 Dose: 0.125 mg Docusate Sodium (Colace) 100 mg PO BID [facility] PRN Reason: Protocol Last Admin: 03/09/17 10:01 Dose: 100 mg Insulin Human Lispro (Humalog Low) 0 units SC ACHS [facility] PRN Reason: Protocol Last Admin: 03/09/17 12:11 Dose: 3 units Lisinopril (Zestril) 2.5 mg PO BID [facility] PRN Reason: Protocol Last Admin: 03/09/17 10:00 Dose: 2.5 mg Megestrol Acetate (Megace) 400 mg PO 1000 [facility] PRN Reason: Protocol Last Admin: 03/09/17 10:00 Dose: 400 mg Ondansetron HCl (Zofran Inj) 4 mg IVP Q8H PRN PRN Reason: Nausea/Vomiting Pantoprazole Sodium (Protonix Ec Tab) 40 mg PO 0630 JALIL PRN Reason: Protocol Last Admin: 03/09/17 06:04 Dose: 40 mg Promethazine HCl (Phenergan Syrup) 6.25 mg PO Q4H PRN PRN Reason: Cough Last Admin: 03/05/17 15:58 Dose: 6.25 mg Sitagliptin Phosphate (Januvia) 50 mg PO DAILY [facility] Last Admin: 03/09/17 10:01 Dose: 50 mg - Labs Labs: 03/07/17 06:30 03/07/17 06:30 - Constitutional Appears: Non-toxic, No Acute Distress - Head Exam Head Exam: ATRAUMATIC, NORMAL INSPECTION, NORMOCEPHALIC - Eye Exam Eye Exam: EOMI, PERRL - ENT Exam ENT Exam: Mucous Membranes Moist - Respiratory Exam Respiratory Exam: Clear to Ausculation Bilateral. absent: Rales, Rhonchi, Wheezes - Cardiovascular Exam Cardiovascular Exam: +S1, +S2. absent: Gallop, JVD, Rubs - GI/Abdominal Exam GI & Abdominal Exam: Soft. absent: Distended, Firm, Guarding, Rigid, Tenderness , Rebound - Neurological Exam Neurological Exam: Alert, Awake, Oriented x3 - Psychiatric Exam Psychiatric exam: Normal Affect, Normal Mood - Skin Skin Exam: Dry, Intact, Normal Color, Warm Assessment and Plan - Assessment and Plan (Free Text) Plan: 81 yo female with history of HTN, CVA with left sided weakness, DM, arthritis, atrial fibrillation on eliquis presented from PMD office with complaint of right -sided facial droop and confusion 1. TIA -Facial droop now resolved -Reviewed CT Head, Brain MRI, Chest Xray, EKG and carotid doppler -Neuro was consulted and recommendations reviewed - Dr. Harmon -Recommend continuing physical therapy in the TCU as tolerated -OOB to chair -Heart Healthy diet 2. HTN -Continue home lisinopril and coreg 3. DM type 2 -Consistent carb diet -Fingersticks ACHS -Low dose ISS 4. Atrial fibrillation -Continue eliquis -Continue digoxin 5. GI/DVT prophylaxis -Protonix/Eliquis 6. Disposition -Patient significantly improved since admission and has been doing well with physical therapy. She is scheduled for discharge tomorrow and is agreeable to discharge with outpatient follow up. Patient will require visiting nurse services at home. Will discuss with social work/case management assistant. Patient seen and case discussed with attending, Dr. Samuels
[2017-03-09 16:40] VITALS: TEMP 99.2; O2SAT 99
[2017-03-10] MEDS: Pantoprazole 40 mg EC Tab PO SCH (06:46)
[2017-03-10] MEDS: Insulin Lispro (humaLOG) LOW Coverage SC SCH ×2 (06:47→11:27)
--- NOTE | 2017-03-10 07:44 | CP.PCM.DIS ---
Provider - Provider Date of Admission: 03/02/17 17:37 Attending physician: Elia Samuels MD Primary care physician: Elia Samuels MD [place] [facility] Course - Lab Results Lab Results: Most Recent Lab Values WBC 8.5 10^3/ul (4.5-11.0) 03/07/17 06:30 RBC 4.02 10^6/uL (3.5-6.1) 03/07/17 06:30 Hgb 11.3 gm/dL (12.0-16.0) L 03/07/17 06:30 Hct 35.0 % (36.0-48.0) L 03/07/17 06:30 MCV 87.1 fL (80.0-105.0) 03/07/17 06:30 MCH 28.1 pg (25.0-35.0) 03/07/17 06:30 MCHC 32.3 g/dl (31.0-37.0) 03/07/17 06:30 RDW 16.3 % (11.5-14.5) H 03/07/17 06:30 Plt Count 219 10^3/uL (120.0-450.0) 03/07/17 06:30 MPV 9.9 fl (7.0-11.0) 03/07/17 06:30 Gran % 67.5 % (50.0-68.0) 03/03/17 07:00 Lymph % (Auto) 24.5 % (22.0-35.0) 03/03/17 07:00 [place] % (Auto) 5.9 % (1.0-6.0) 03/03/17 07:00 Eos % (Auto) 1.9 % (1.5-5.0) 03/03/17 07:00 Baso % (Auto) 0.2 % (0.0-3.0) 03/03/17 07:00 Gran # 5.73 (1.4-6.5) 03/03/17 07:00 Lymph # 2.1 (1.2-3.4) 03/03/17 07:00 [place] # 0.5 (0.1-0.6) 03/03/17 07:00 Eos # 0.2 (0.0-0.7) 03/03/17 07:00 Baso # 0.02 K/mm3 (0.0-2.0) 03/03/17 07:00 Sodium 138 mmol/L (132-148) 03/07/17 06:30 Potassium 4.6 mmol/L (3.6-5.0) 03/07/17 06:30 Chloride 102 mmol/L (98-107) 03/07/17 06:30 Carbon Dioxide 28 mmol/L (21-33) 03/07/17 06:30 Anion Gap 13 (10-20) 03/07/17 06:30 BUN 24 mg/dL (7-21) H 03/07/17 06:30 Creatinine 0.8 mg/dL (0.5-1.4) 03/07/17 06:30 Est GFR ( Amer) > 60 03/07/17 06:30 Est GFR (Non-Af Amer) > 60 03/07/17 06:30 POC Glucose (mg/dL) 161 mg/dL (65-110) H 03/09/17 06:14 Random Glucose 134 mg/dL (70-110) H 03/07/17 06:30 Calcium 9.0 mg/dL (8.4-10.5) 03/07/17 06:30 Total Bilirubin 0.5 mg/dL (0.2-1.3) 03/07/17 06:30 AST 20 U/L (15-39) 03/07/17 06:30 ALT 28 U/L (7-56) 03/07/17 06:30 Alkaline Phosphatase 49 U/L (38-133) 03/07/17 06:30 Total Protein 5.8 g/dL (5.8-8.3) 03/07/17 06:30 Albumin 3.1 g/dL (3.0-4.8) 03/07/17 06:30 Globulin 2.7 gm/dL 03/07/17 06:30 Albumin/Globulin Ratio 1.1 (1.1-1.8) 03/07/17 06:30 Discharge Exam - Head Exam Head Exam: ATRAUMATIC, NORMAL INSPECTION, NORMOCEPHALIC Discharge Plan - Discharge Medications Prescriptions: Aspirin [Aspirin Chewable] 81 mg PO DAILY #30 Atorvastatin [Lipitor] 20 mg PO DIN #30 tab Lisinopril [Zestril] 2.5 mg PO DAILY #30 tab - Follow Up Plan Condition: GOOD Disposition: HOME/ ROUTINE Additional Instructions: 1. Follow up with your primary care doctor, Dr. Samuels within 1-2 weeks 2. Continue to take your medications as directed 3. Fill any medications prescribed to you and take as directed 4. Return to the emergency room should your condition worsen Referrals: Elia Samuels MD [Primary Care Provider] -
[2017-03-10] MEDS: Megestrol Acetate 40 mg/ml Cup PO SCH (10:28)
[2017-03-10] MEDS: Digoxin 125 mcg (0.125 mg) Tab PO SCH (10:32)
[2017-03-10 10:33] VITALS: BP 128/73; PULSE 68; PULSE 71
== END 2017-03-10 14:31 | disposition home health service (06) | DRG 69 ==
LOC: TRCU 17:37
PROVIDERS: ADMIT Internal Medicine; ATTEND Internal Medicine
PROC: F07Z9FZ Gait Training/Functional Ambulation Treatment using Assistive, Adaptive, Supportive or Protective Equipment (ICD-10-PCS; principal; 2017-03-04)
PROC: F07Z8ZZ Transfer Training Treatment (ICD-10-PCS; 2017-03-04)
PROC: F07L6YZ Therapeutic Exercise Treatment of Musculoskeletal System - Lower Back / Lower Extremity using Other Equipment (ICD-10-PCS; 2017-03-04)
PROC: F08Z2ZZ Grooming/Personal Hygiene Treatment (ICD-10-PCS; 2017-03-09)
PROC: F08Z1ZZ Dressing Techniques Treatment (ICD-10-PCS; 2017-03-09)
DX: G45.9 Transient cerebral ischemic attack, unspecified (principal); I69.354 Hemiplegia and hemiparesis following cerebral infarction affecting left non-dominant side; I48.91 Unspecified atrial fibrillation; E11.9 Type 2 diabetes mellitus without complications; I10 Essential (primary) hypertension; M19.90 Unspecified osteoarthritis, unspecified site; E78.5 Hyperlipidemia, unspecified; Z79.02 Long term (current) use of antithrombotics/antiplatelets; Z79.4 Long term (current) use of insulin

== ENCOUNTER 2017-05-28 16:14 | Observation (INO) | payer MEDICARE ==
[2017-05-28 16:15] VITALS: PULSE 71
--- NOTE | 2017-05-28 16:33 | ED PDOC ---
Arrival/HPI - General Chief Complaint: Abdominal Pain Time Seen by Provider: 05/28/17 16:30 Historian: Patient, Family - History of Present Illness Narrative History of Present Illness (Text): 05/28/17 16:32 81 yo female w/PMHx of NIDDM, recent Hx of CVA (03/20/16), presents to this ED c/ o left lower rib pain x 3 days. Patient also reported LUQ abdominal pain with n /v. Patient stated pain is constant, and it does not change with movement or remaining still. Patient also stated feeling mild SOB, and JONES. Patient denies fever, recent travel, sick contact, rash, urinary symptoms, rectal bleeding, vaginal bleeding, dizziness, MANTILLA, diplopia, dysarthria, neck pain, or abnormal gait. Time/Duration: Other (3 days) Context: Home Past Medical History - Provider Review Nursing Documentation Reviewed: Yes - Infectious Disease Hx of Infectious Diseases: None - Cardiac Hx Cardiac Disorders: Yes (Afib) Hx Hypertension: Yes - Pulmonary Hx Respiratory Disorders: No - Neurological Hx Neurological Disorder: Yes HX Cerebrovascular Accident: Yes (L sided weakness) - HEENT Hx HEENT Disorder: No - Renal Hx Renal Disorder: No - Endocrine/Metabolic Hx Endocrine Disorders: Yes Hx Diabetes Mellitus Type 1: Yes - Hematological/Oncological Hx Blood Disorders: No - Integumentary Hx Dermatological Disorder: No - Musculoskeletal/Rheumatological Hx Musculoskeletal Disorders: Yes Hx Falls: Yes - Gastrointestinal Hx Gastrointestinal Disorders: No - Genitourinary/Gynecological Hx Genitourinary Disorders: No Hx Reproductive Disorders: No - Psychiatric Hx Psychophysiologic Disorder: No Hx Substance Use: No - Surgical History Hx Orthopedic Surgery: Yes Other/Comment: right wrist x10 years ago, bunionectomy - Anesthesia Hx Anesthesia Reactions: (UNK) Hx Malignant Hyperthermia: (UNK) Family/Social History - Physician Review Nursing Documentation Reviewed: Yes Family/Social History: Other (non-contributory) Smoking Status: Never Smoked Hx Alcohol Use: No Hx Substance Use: No Allergies/Home Meds Allergies/Adverse Reactions: Allergies FISH Allergy (Verified 05/28/17 22:03) RASH Home Medications: Home Meds Medication Instructions Recorded Confirmed Apixaban [Eliquis] 2.5 mg PO BID 02/25/17 05/28/17 Carvedilol [Coreg] 1 tab PO BID 02/25/17 05/28/17 Digoxin [Lanoxin] 1 tab PO DAILY 02/25/17 05/28/17 Docusate [Colace] 1 cap PO BID 02/25/17 05/28/17 GlipiZIDE [Glucotrol] 5 mg PO DAILY 02/25/17 05/28/17 Omeprazole [Omeprazole] 20 mg PO DAILY 02/25/17 05/28/17 metFORMIN [glucOPHAGE] 500 mg PO BID 02/25/17 05/28/17 Review of Systems - Review of Systems Constitutional: Normal. absent: Fatigue, Weight Change, Fevers, Night Sweats Eyes: Normal ENT: Normal Respiratory: Normal. absent: SOB, Cough Cardiovascular: Chest Pain. absent: Palpitations, Calf Pain, JONES, Orthopnea, Syncope Gastrointestinal: Abdominal Pain, Nausea, Vomiting. absent: Constipation, Diarrhea Genitourinary Female: Normal Musculoskeletal: Normal Skin: Normal Neurological: Normal Endocrine: Normal Hemo/Lymphatic: Normal Psychiatric: Normal Physical Exam Vital Signs Temp Pulse Resp BP Pulse Ox 05/28/17 21:34 99 F 05/28/17 18:27 69 18 145/86 98 05/28/17 16:21 97.8 F 74 16 148/95 H 98 Temperature: Afebrile Blood Pressure: Normal Pulse: Regular Respiratory Rate: Normal Appearance: Positive for: Well-Appearing, Non-Toxic, Comfortable Pain Distress: None Mental Status: Positive for: Alert and Oriented X 3 - Systems Exam Head: Present: Atraumatic, Normocephalic Pupils: Present: PERRL Extroacular Muscles: Present: EOMI Conjunctiva: Present: Normal Mouth: Present: Moist Mucous Membranes Neck: Present: Normal Range of Motion Respiratory/Chest: Present: Clear to Auscultation, Good Air Exchange. No: Respiratory Distress, Accessory Muscle Use, Wheezes, Decreased Breath Sounds, Rales, Retracting, Rhonchi, Tender to Palpation Cardiovascular: Present: Regular Rate and Rhythm, Normal S1, S2. No: Murmurs Abdomen: Present: Normal Bowel Sounds. No: Tenderness, Distention, Peritoneal Signs, Rebound, Guarding Back: Present: Normal Inspection Upper Extremity: Present: Normal Inspection, Normal ROM, NORMAL PULSES. No: Cyanosis, Edema Lower Extremity: Present: Normal Inspection, NORMAL PULSES, Normal ROM. No: Edema Neurological: Present: GCS=15, CN II-XII Intact, Speech Normal, Motor Func Grossly Intact, Normal Sensory Function, Normal Cerebellar Funct, Memory Normal Skin: Present: Warm, Dry, Normal Color. No: Rashes Psychiatric: Present: Alert, Oriented x 3, Normal Insight, Normal Concentration Medical Decision Making ED Course and Treatment: 05/28/17 21:[address] Gallo regarding patient c/o left chest pain. Dr. Gallo agreed with plan for admission for chest pain, and he recommended cardiology consult, Dr. Cedillo. Remote Tel Re-evaluation Time: 21:44 Reassessment Condition: Re-examined, Improving,but remains with symptoms - Lab Interpretations Lab Results: 05/28/17 17:15 05/28/17 17:15 Lab Results 05/28/17 18:30: Lipase 75 05/28/17 18:30: Digoxin 1.2 05/28/17 17:15: Sodium 138, Chloride 89 L, Potassium 3.9, Carbon Dioxide 36 H, Anion Gap 17, BUN 32 H, Creatinine 0.8, Est GFR ( Amer) > 60, Est GFR ( Non-Af Amer) > 60, Random Glucose 220 H, Calcium 10.0, Magnesium 1.3 L, Total Bilirubin 0.9, AST 51 H, ALT 47, Alkaline Phosphatase 69, Lactate Dehydrogenase 471, Total Creatine Kinase 26 L, Troponin I < 0.01, NT-Pro-B Natriuret Pep 787 H , Total Protein 7.3, Albumin 4.3, Globulin 3.0, Albumin/Globulin Ratio 1.4 05/28/17 17:15: pO2 26 L, VBG pH 7.42, VBG pCO2 65.0 H, VBG HCO3 42.2 H, VBG Total CO2 44.2 H, VBG O2 Sat (Calc) 50.2, VBG Base Excess 14.5 H, VBG Potassium 4.0, Sodium 138.0, Chloride 93.0 L, Glucose 239 H, Lactate 3.2 H, FiO2 21.0, Venous Blood Potassium 4.0 05/28/17 17:15: PT 13.6 H, INR 1.26 H, APTT 28.2, D-Dimer, Quantitative 0.37 05/28/17 17:15: WBC 10.5 D, RBC 4.90, Hgb 14.8, Hct 44.4, MCV 90.6, MCH 30.2, MCHC 33.3, RDW 14.6 H, Plt Count 263, MPV 10.0, Gran % 69.8 H, Lymph % (Auto) 22.3, [place] % (Auto) 6.8 H, Eos % (Auto) 0.9 L, Baso % (Auto) 0.2, Gran # 7.32 H , Lymph # 2.3, [place] # 0.7 H, Eos # 0.1, Baso # 0.02 I have reviewed the lab results: Yes Interpretation: Abnormal lab values - RAD Interpretation Narrative RAD Interpretations (Text): 05/28/17 18:45 Accession No. : [id number] Patient Name / ID : LV DANIELLE / [id number] Exam Date : 05/28/2017 17:31:39 ( Approved ) Study Comment : Sex / Age : F / 81Y Creator : Sue Valdivia MD Dictator : Senior Hris Analyst : [employer] Lab Manager : Sue Valdivia MD Approver2 : Report Date : 05/28/2017 17:39:20 My Comment : HISTORY: chest pain COMPARISON: Chest x-ray performed 02/25/17 TECHNIQUE: Chest, one view. FINDINGS: LUNGS: No focal consolidation. Please note that chest x-ray has limited sensitivity for the detection of pulmonary masses. PLEURA: No significant pleural effusion identified. No definite pneumothorax . CARDIOVASCULAR: The heart size appears within normal limits. Atherosclerotic calcifications of the aorta. OSSEOUS STRUCTURES: Osseous demineralization. Scoliosis convex to the right. VISUALIZED UPPER ABDOMEN: Unremarkable. OTHER FINDINGS: None. IMPRESSION: No focal consolidation, significant pleural effusion, or definite pneumothorax identified. Radiology Orders: 05/28/17 17:00 CHEST PORTABLE [RAD] Stat 05/28/17 18:47 CHEST,ABD,PEL W/IV CONT ONLY [CT] Stat - EKG Interpretation Interpreted by ED Physician: Yes (A-fib at [address] changes) Type: 12 lead EKG Comparison: Similar to previous EKG - Medication Orders Current Medication Orders: Discontinued Medications Sodium Chloride (Sodium Chloride 0.9%) 500 mls @ 500 mls/hr IV .Q1H STA Stop: 05/28/17 20:14 Last Admin: 05/28/17 20:50 Dose: 500 mls/hr Iohexol (Omnipaque 350 100 Ml) Confirm Administered Dose 350 mg .ROUTE .STK-MED ONE Stop: 05/28/17 19:13 Ondansetron HCl (Zofran Inj) 4 mg IVP STAT STA Stop: 05/28/17 19:04 Last Admin: 05/28/17 19:18 Dose: 4 mg Disposition/Present on Arrival - Present on Arrival Any Indicators Present on Arrival: No History of DVT/PE: No History of Uncontrolled Diabetes: No Urinary Catheter: No History of Decub. Ulcer: No History Surgical Site Infection Following: None - Disposition Have Diagnosis and Disposition been Completed?: Yes Diagnosis: Chest pain Disposition: HOSPITALIZED Disposition Time: 22:02 Patient Plan: Admission Condition: STABLE
[2017-05-28 17:35] LABS: BASO # 0.02 K/mm3 (0.0-2.0); BASO % 0.2 % (0.0-3.0); EOS # 0.1 (0.0-0.7); EOS % 0.9 % (1.5-5.0); GRAN # 7.32 (1.4-6.5); GRAN % 69.8 % (50.0-68.0); HEMATOCRIT 44.4 % (36.0-48.0); LYMPH # 2.3 (1.2-3.4); LYMPH % 22.3 % (22.0-35.0); MEAN CELL VOLUME 90.6 fl (80.0-105.0); MEAN CORPUSCULAR HEMOGLOBIN 30.2 pg (25.0-35.0); MEAN CORPUSCULAR HGB CONC 33.3 g/dl (31.0-37.0); MONO # 0.7 (0.1-0.6); MONO % 6.8 % (1.0-6.0); RED CELL DISTRIBUTION WIDTH 14.6 % (11.5-14.5); WHITE BLOOD COUNT 10.5 10^3/ul (4.5-11.0)
--- NOTE | 2017-05-28 17:41 | RAD ---
HISTORY: chest pain COMPARISON: Chest x-ray performed 02/25/17 TECHNIQUE: Chest, one view. FINDINGS: LUNGS: No focal consolidation. Please note that chest x-ray has limited sensitivity for the detection of pulmonary masses. PLEURA: No significant pleural effusion identified. No definite pneumothorax . CARDIOVASCULAR: The heart size appears within normal limits. Atherosclerotic calcifications of the aorta. OSSEOUS STRUCTURES: Osseous demineralization. Scoliosis convex to the right. VISUALIZED UPPER ABDOMEN: Unremarkable. OTHER FINDINGS: None. IMPRESSION: No focal consolidation, significant pleural effusion, or definite pneumothorax identified.
[2017-05-28 17:46] LABS: VENOUS BLOOD GAS BASE EXCESS 14.5 mmol/L (0.0-2.0); VENOUS BLOOD PH 7.42 (7.32-7.43)
[2017-05-28 17:52] LABS: ALB/GLOB RATIO 1.4 (1.1-1.8); ALKALINE PHOSPHATASE 69 U/L (38-126); ALT/SGPT 47 U/L (7-56); AST/SGOT 51 U/L (14-36); BILIRUBIN,TOTAL 0.9 mg/dL (0.2-1.3); BLOOD UREA NITROGEN 32 mg/dL (7-21); CARBON DIOXIDE 36 mmol/L (21-33); CHLORIDE 89 mmol/L (98-107); GFR AFRICAN-AMERICAN > 60; GLUCOSE,RANDOM 220 mg/dL (70-110); MAGNESIUM 1.3 mg/dL (1.7-2.2); POTASSIUM 3.9 mmol/L (3.6-5.0); SODIUM 138 mmol/L (132-148); TOTAL PROTEIN 7.3 g/dL (5.8-8.3)
[2017-05-28 18:05] LABS: TROPONIN I < 0.01 ng/mL
[2017-05-28 18:28] LABS: D DIMER 0.37 mg/L FEU (0-0.50); INR 1.26 (0.93-1.08); PARTIAL THROMBOPLASTIN TIME 28.2 Seconds (23.7-30.8)
[2017-05-28] MEDS ORDERED: Iohexol 350 MG/100 ML VIAL ONE (19:12)
[2017-05-28] MEDS ORDERED: Sodium Chloride 0.9% 500 ML IV STA (19:15)
--- NOTE | 2017-05-28 21:28 | CT ---
EXAM: CT Chest With Intravenous Contrast CLINICAL HISTORY: 81 years old, female; Pain; Abdominal pain; Localized; Left upper quadrant (luq); Chest pain; Additional info: Luq abdominal pain TECHNIQUE: Axial computed tomography images of the chest with intravenous contrast. All CT scans at this facility use one or more dose reduction techniques, viz.: automated exposure control; ma/kV adjustment per patient size (including targeted exams where dose is matched to indication; i.e. head); or iterative reconstruction technique. Coronal and sagittal reformatted images were created and reviewed. CONTRAST: 93 mL of OMNI 350 administered intravenously. COMPARISON: No relevant prior studies available. FINDINGS: Limitations: Motion artifact - mild. Lungs: Minimal atelectasis/scarring. No consolidation. 0.7 cm subpleural nodule vs focal scarring RIGHT middle lobe. Pleural space: No pneumothorax. No significant effusion. Heart: No cardiomegaly. No significant pericardial effusion. Coronary artery calcifications. Bones/joints: Scoliosis. No acute fracture. Probable hemangioma within spine. Soft tissues: Few small LEFT breast calcifications. Vasculature: [id number] atherosclerotic disease. No aneurysm. Lymph nodes: No pathologically enlarged lymph nodes. IMPRESSION: 1. Pulmonary nodule. For low-risk patients recommend follow-up chest CT at 6-12 months. If unchanged consider an additional follow-up CT at 18-24 months. For high-risk patients (smoking history or other known risk factors) initial follow-up chest CT at 6-12 months and if unchanged, 18-24 months. 2. Incidental/non-acute findings are described above. EXAM: CT Abdomen and Pelvis With Intravenous Contrast CLINICAL HISTORY: 81 years old, female; Pain; Abdominal pain; Localized; Left upper quadrant (luq); Chest pain; Additional info: Luq abdominal pain TECHNIQUE: Axial computed tomography images of the abdomen and pelvis with intravenous contrast. All CT scans at this facility use one or more dose reduction techniques, viz.: automated exposure control; ma/kV adjustment per patient size (including targeted exams where dose is matched to indication; i.e. head); or iterative reconstruction technique. Coronal and sagittal reformatted images were created and reviewed. CONTRAST: 93 mL of OMNI 350 administered intravenously. COMPARISON: No relevant prior studies available. FINDINGS: ABDOMEN: Liver: Probable fatty infiltration. Gallbladder and bile ducts: No calcified stones. No ductal dilation. Pancreas: No ductal dilation. No mass. Spleen: No splenomegaly. Adrenals: No mass. Kidneys and ureters: No mass. No hydronephrosis. Stomach and bowel: Mural thickening versus underdistention body of stomach. Segmental areas of underdistention of colon. No definite bowel wall thickening. No obstruction. Appendix: No findings to suggest acute appendicitis. PELVIS: Bladder: Unremarkable. Reproductive: Unremarkable as visualized. ABDOMEN and PELVIS: Intraperitoneal space: No significant fluid collection. No free air. Bones/joints: Degenerative changes of spine. Chronic compression deformity L2 vertebral body. No acute fracture. Soft tissues: Unremarkable. Vasculature: [id number] atherosclerotic disease. No aneurysm. Lymph nodes: No pathologically enlarged lymph nodes. IMPRESSION: 1. Gastric wall thickening vs underdistention. Clinical correlation is needed. 2. Incidental/non-acute findings are described above.
[2017-05-28] MEDS: Pantoprazole 40mg/100ml IVPB 40 MG/100 ML BAG IV SCH (22:00)
[2017-05-28 22:01] LABS: VENOUS BLOOD PH 7.35 (7.32-7.43)
[2017-05-28 22:02] LABS: PH,URINE 8.5 (4.7-8.0); URINE BILIRUBIN NEGATIVE (NEGATIVE); URINE BLOOD NEGATIVE (NEGATIVE); URINE GLUCOSE (UA) NEGATIVE (NEGATIVE); URINE KETONE NEGATIVE (NEGATIVE); URINE LEUKOCYTE ESTERASE SMALL Leu/uL (NEGATIVE); URINE PROTEIN TRACE mg/dL (<30 mg/dL); URINE UROBILINOGEN 0.2 E.U./dL (<1 E.U./dL)
[2017-05-28 22:03] LABS: URINE APPEARANCE CLEAR (CLEAR); URINE COLOR YELLOW (YELLOW)
--- NOTE | 2017-05-28 22:11 | CP.PCM.HP ---
<Francisco Javier Stewart - Last Filed: 05/29/17 02:34> History of Present Illness - History of Present Illness History of Present Illness: IM H&P for Dr. Samuels/Dr. Houston service CC: Left lower chest/LUQ abd pain x3 days with nausea/emesis HPI: This is an 81 yo F with PMH of hypertension, CVA with left-sided weakness, DM2, arthritis, atrial fibrillation on eliquis, prior TIAs, and chronic constipation who presented to [facility] left lower chest/LUQ abd pain with nausea and emesis x3 days. As per patient, she awoke 3 days ago with nausea, vomited up clear-white vomitus, and has had the pain since. Patient reports emesis every day, not specifically associated with PO intake, but also reports that due to general malaise and nausea, she has been eating almost nothing, and reports decreased PO fluid intake. She is tolerating the PO fluids without additional emesis. Denies bilious emesis or hematemesis. Initially also reports SOB, but on further discussion reports that she is breathing shallowly due to exacerbation of her chest pain with deep breathing. She reports a hx of fractured rib "many years ago" at the site where her chest pain is now, and expressed concern that her current pain is associated with this. She denies any radiation of the chest/abdominal pain, dyspnea, cough/ productive cough, midsternal burning sensation, dysuria/hematuria, diarrhea, melena/hematochezia, new focal weakness, fevers/chills, headache, or vision changes. All other ROS in 12-point system review negative. PMH: as above PSH: right wrist (age 8) Social hx: denies tobacco/EtOH/illicits/IVDA lives alone FHx: denies PMD: Dr. Samuels Present on Admission - Present on Admission Any Indicators Present on Admission: No History of DVT/PE: No History of Uncontrolled Diabetes: No Urinary Catheter: No Review of Systems - Review of Systems All systems: reviewed and no additional remarkable complaints except (as per HPI ) Past Patient History - Infectious Disease Hx of Infectious Diseases: None - Past Social History Smoking Status: Never Smoked - CARDIAC Hx Cardiac Disorders: Yes (Afib) Hx Hypertension: Yes - PULMONARY Hx Respiratory Disorders: No - NEUROLOGICAL Hx Neurological Disorder: Yes HX Cerebrovascular Accident: Yes (L sided weakness) - HEENT Hx HEENT Problems: No - RENAL Hx Chronic Kidney Disease: No - ENDOCRINE/METABOLIC Hx Endocrine Disorders: Yes Hx Diabetes Mellitus Type 1: Yes - HEMATOLOGICAL/ONCOLOGICAL Hx Blood Disorders: No - INTEGUMENTARY Hx Dermatological Problems: No - MUSCULOSKELETAL/RHEUMATOLOGICAL Hx Musculoskeletal Disorders: Yes Hx Falls: Yes - GASTROINTESTINAL Hx Gastrointestinal Disorders: No - GENITOURINARY/GYNECOLOGICAL Hx Genitourinary Disorders: No Hx Reproductive Disorders: No - PSYCHIATRIC Hx Psychophysiologic Disorder: No Hx Substance Use: No - SURGICAL HISTORY Hx Orthopedic Surgery: Yes Other/Comment: right wrist x10 years ago, bunionectomy - ANESTHESIA Hx Anesthesia Reactions: (UNK) Hx Malignant Hyperthermia: (UNK) Meds Allergies/Adverse Reactions: Allergies Allergy/AdvReac Type Severity Reaction Status Date / Time FISH Allergy RASH Verified 05/28/17 22:06 Physical Exam - Constitutional Appears: Well, Non-toxic, No Acute Distress - Head Exam Head Exam: ATRAUMATIC, NORMAL INSPECTION, NORMOCEPHALIC - Eye Exam Eye Exam: EOMI, Normal appearance. absent: Conjunctival injection, Scleral icterus Pupil Exam: absent: Irregular, Unequal - ENT Exam ENT Exam: Mucous Membranes Dry - Neck Exam Neck exam: Positive for: Full Rom, Normal Inspection. Negative for: Thyromegaly - Respiratory Exam Respiratory Exam: Chest Wall Tenderness (tenderness to left lower chest bordering abd LUQ, worse with palpation, specifically at 8th-9th rib region, most tender to palpation on the ribs), Clear to Auscultation Bilateral, NORMAL BREATHING PATTERN. absent: Accessory Muscle Use, Decreased Breath Sounds, Prolonged Expiratory Phase, Rales, Rhonchi, Wheezes - Cardiovascular Exam Cardiovascular Exam: REGULAR RHYTHM, RRR, +S1, +S2. absent: Bradycardia, Tachycardia, Clicks, Irregular Rhythm, JVD, +S4 - GI/Abdominal Exam GI & Abdominal Exam: Normal Bowel Sounds, Soft, Tenderness (tenderness to left lower chest bordering abd LUQ, worse with palpation, specifically at 8th-9th rib region, most tender to palpation on the ribs; no epigastric tenderness, tenderness in RUQ/RLQ/LLQ, or suprapubic tenderness). absent: Diminished Bowel Sounds, Hyperactive Bowel Sounds, Hypoactive Bowel Sounds - Extremities Exam Extremities exam: Positive for: normal inspection. Negative for: calf tenderness, pedal edema, tenderness - Neurological Exam Neurological exam: Alert, Oriented x3 Additional comments: moving all extremities spontaneously, following all commands appropriately 5/5 RUE and RLE motor strength, 4/5 LUE and LLE motor strength in comparison to R extremities but no gross movement or motor deficits in L extremities - Psychiatric Exam Psychiatric exam: Normal Affect, Normal Mood - Skin Skin Exam: Dry, Intact, Normal Color, Warm Results - Vital Signs Recent Vital Signs: Last Vital Signs Temp 99 F 05/28/17 21:34 Pulse 69 05/28/17 18:27 Resp 18 05/28/17 18:27 BP 145/86 05/28/17 18:27 Pulse Ox 98 05/28/17 18:27 - Labs Result Diagrams: 05/28/17 17:15 05/28/17 17:15 Labs: Laboratory Results - last 24 hr 05/28/17 05/28/17 21:57 21:57 pO2 30 VBG pH 7.35 VBG pCO2 70.0 H* VBG HCO3 39.7 H VBG Total CO2 41.9 H VBG O2 Sat (Calc) 59.4 VBG Base Excess 11.0 H VBG Potassium 4.6 Sodium 137.0 Chloride 93.0 L Glucose 100 Lactate 2.6 H FiO2 21.0 Venous Blood Potassium 4.6 Urine Color Yellow Urine Appearance Clear Urine pH 8.5 Ur Specific [place] 1.010 Urine Protein Trace H Urine Glucose (UA) Negative Urine Ketones Negative Urine Blood Negative Urine Nitrate Negative Urine Bilirubin Negative Urine Urobilinogen 0.2 Ur Leukocyte Esterase Small H Assessment & Plan - Assessment and Plan (Free Text) Assessment: This is an 81 yo F with PMH of hypertension, CVA with left-sided weakness, DM2, arthritis, atrial fibrillation on eliquis, prior TIAs, and chronic constipation who presented to [facility] for left lower chest/LUQ abd pain with nausea and emesis x3 days. She is being worked up for ACS vs Chostochondritis 2/2 emesis vs gastritis. Plan: 1) Left lower chest/LUQ abd pain x3 days ddx: ACS vs costochondritis 2/2 emesis vs gastritis -EKG in ED notable for afib at 61bpm, no ST-T segment abnormalities, no changes consistent with STEMI; repeat EKG in AM, f/u -Trop x1 negative, trending 2 more q8 -Given reproducible chest/abd pain, specifically on the ribs, more likely costochondritis than ACS, but will need to rule out ACS -Cardio (Dr. Cedillo) consulted, appreciate all recs -Continue home Eliquis for Afib -Continue home digoxin, ASA, and Lipitor, Dig level 1.2 in ED so therapeutic -Holding home Coreg as HR in ED 60's and therapeutic on dig, want to avoid making bradycardic -Protonix for abd pain/possible gastritis, Zofran PRN for nausea -NPO diet with Ice Chips and meds for bowel rest, can consider clears diet in AM if nausea improved on current regimen -CXR and CT Chest/Abd/Pelvis negative for acute findings, no pleural effusions, R middle lobe nodule noted 0.7cm; given findings and pt report SOB is more likely 2/2 costochrondral pain, but given reported hx of pleural effusion s/p 4x thoracentesis, would avoid aggressive hydration 2) Metabolic acidosis with elevated lactate -likely contraction alkalosis in setting of emesis and decreased PO intake, hypochloremic -BUN:creatinine ratio suggestive of dehydration at 32:0.8 -lactate 3.2, now 2.6 after receiving 500cc NS bolus in ED -Urine chloride level ordered, may be skewed due to already receiving fluids in the ED -CXR and CT Chest/Abd/Pelvis negative for acute findings, no pleural effusions, but given reported hx of pleural effusion s/p 4x thoracentesis, would avoid aggressive hydration, NS 30cc/hr -ABG ordered, f/u -K and Ca wnl, Mag low at 1.3, repleting and will recheck 3) Hx DM2 -holding home oral hypoglycemics in favor of Lispro sliding scale and accuchecks ACHS -currently NPO for bowel rest 4) Hx HTN -currently hemodynamically stable -gently hydrating due to dehydration and hx of prior pleural effusions, avoid diuretics given metabolic derangements -holding home coreg to avoid bradycardia, continue to monitor BPs Dispo: Remote tele obs, pending AM labs and Cardio eval and input FEN: NPO for bowel rest, NS 30cc/hr Access: Peripheral IV Consults: Cardio Ppx: Protonix covers GI, Eliquis covers for DVT Patient reviewed and discussed with attending, Dr. Mark. Decision To Admit - Pt Status Changed To: Hospital Disposition Of: Observation - . Bed Request Type: Remote Telemetry <Dandy Mark S - Last Filed: 05/29/17 08:57> Results - Vital Signs Recent Vital Signs: Last Vital Signs Temp 98.1 F 05/29/17 06:00 Pulse 62 05/29/17 06:00 Resp 20 05/29/17 06:00 BP 108/65 05/29/17 06:00 Pulse Ox 96 05/29/17 06:00 - Labs Result Diagrams: 05/29/17 06:00 05/29/17 06:00 Labs: Laboratory Results - last 24 hr 05/28/17 05/28/17 05/28/17 21:57 21:57 23:24 WBC RBC Hgb Hct MCV MCH MCHC RDW Plt Count MPV Gran % Lymph % (Auto) [place] % (Auto) Eos % (Auto) Baso % (Auto) Gran # Lymph # [place] # Eos # Baso # PT INR APTT pCO2 43 pO2 30 77.0 L HCO3 32.8 H ABG pH 7.49 H ABG Total CO2 34.1 H ABG O2 Saturation 98.2 H ABG O2 Content 16.5 ABG Base Excess 8.5 H ABG Hemoglobin 12.2 ABG Carboxyhemoglobin 1.9 H POC ABG HHb (Measured) 1.8 ABG Methemoglobin 0.7 ABG O2 Capacity 16.8 VBG pH 7.35 VBG pCO2 70.0 H* VBG HCO3 39.7 H VBG Total CO2 41.9 H VBG O2 Sat (Calc) 59.4 VBG Base Excess 11.0 H VBG Potassium 4.6 Hgb O2 Saturation 95.6 Sodium 137.0 Chloride 93.0 L Glucose 100 Lactate 2.6 H FiO2 21.0 21.0 Potassium Carbon Dioxide Anion Gap BUN Creatinine Est GFR ( Amer) Est GFR (Non-Af Amer) POC Glucose (mg/dL) Random Glucose Lactic Acid Calcium Phosphorus Magnesium Total Bilirubin AST ALT Alkaline Phosphatase Troponin I Total Protein Albumin Globulin Albumin/Globulin Ratio Venous Blood Potassium 4.6 Urine Color Yellow Urine Appearance Clear Urine pH 8.5 Ur Specific Tabor 1.010 Urine Protein Trace H Urine Glucose (UA) Negative Urine Ketones Negative Urine Blood Negative Urine Nitrate Negative Urine Bilirubin Negative Urine Urobilinogen 0.2 Ur Leukocyte Esterase Small H Urine RBC 0 - 2 Urine WBC 15 - 20 Ur Epithelial Cells 1 - 3 Urine Bacteria Few 05/29/17 05/29/17 05/29/17 01:13 05:47 06:00 WBC 8.4 RBC 4.38 Hgb 12.8 D Hct 39.8 MCV 90.9 MCH 29.2 MCHC 32.2 RDW 14.7 H Plt Count 235 MPV 10.4 Gran % 68.3 H Lymph % (Auto) 22.6 [place] % (Auto) 7.3 H Eos % (Auto) 1.6 Baso % (Auto) 0.2 Gran # 5.72 Lymph # 1.9 [place] # 0.6 Eos # 0.1 Baso # 0.02 PT INR APTT pCO2 pO2 HCO3 ABG pH ABG Total CO2 ABG O2 Saturation ABG O2 Content ABG Base Excess ABG Hemoglobin ABG Carboxyhemoglobin POC ABG HHb (Measured) ABG Methemoglobin ABG O2 Capacity VBG pH VBG pCO2 VBG HCO3 VBG Total CO2 VBG O2 Sat (Calc) VBG Base Excess VBG Potassium Hgb O2 Saturation Sodium Chloride Glucose Lactate FiO2 Potassium Carbon Dioxide Anion Gap BUN Creatinine Est GFR ( Amer) Est GFR (Non-Af Amer) POC Glucose (mg/dL) Random Glucose Lactic Acid 1.0 Calcium Phosphorus Magnesium Total Bilirubin AST ALT Alkaline Phosphatase Troponin I 0.02 D Total Protein Albumin Globulin Albumin/Globulin Ratio Venous Blood Potassium Urine Color Urine Appearance Urine pH Ur Specific Tabor Urine Protein Urine Glucose (UA) Urine Ketones Urine Blood Urine Nitrate Urine Bilirubin Urine Urobilinogen Ur Leukocyte Esterase Urine RBC Urine WBC Ur Epithelial Cells Urine Bacteria 05/29/17 05/29/17 05/29/17 06:00 06:00 07:00 WBC RBC Hgb Hct MCV MCH MCHC RDW Plt Count MPV Gran % Lymph % (Auto) [place] % (Auto) Eos % (Auto) Baso % (Auto) Gran # Lymph # [place] # Eos # Baso # PT 12.9 H INR 1.19 H APTT 29.6 pCO2 pO2 HCO3 ABG pH ABG Total CO2 ABG O2 Saturation ABG O2 Content ABG Base Excess ABG Hemoglobin ABG Carboxyhemoglobin POC ABG HHb (Measured) ABG Methemoglobin ABG O2 Capacity VBG pH VBG pCO2 VBG HCO3 VBG Total CO2 VBG O2 Sat (Calc) VBG Base Excess VBG Potassium Hgb O2 Saturation Sodium 140 Chloride 95 L Glucose Lactate FiO2 Potassium 3.6 Carbon Dioxide 35 H Anion Gap 14 BUN 21 Creatinine 0.7 Est GFR ( Amer) > 60 Est GFR (Non-Af Amer) > 60 POC Glucose (mg/dL) Random Glucose 98 Lactic Acid Calcium 9.1 Phosphorus 3.9 Magnesium 2.8 H Total Bilirubin 0.8 AST 35 ALT 37 Alkaline Phosphatase 58 Troponin I 0.02 Total Protein 5.9 Albumin 3.4 Globulin 2.6 Albumin/Globulin Ratio 1.3 Venous Blood Potassium Urine Color Urine Appearance Urine pH Ur Specific [place]abor Urine Protein Urine Glucose (UA) Urine Ketones Urine Blood Urine Nitrate Urine Bilirubin Urine Urobilinogen Ur Leukocyte Esterase Urine RBC Urine WBC Ur Epithelial Cells Urine Bacteria 05/29/17 07:40 WBC RBC Hgb Hct MCV MCH MCHC RDW Plt Count MPV Gran % Lymph % (Auto) [place] % (Auto) Eos % (Auto) Baso % (Auto) Gran # Lymph # [place] # Eos # Baso # PT INR APTT pCO2 pO2 HCO3 ABG pH ABG Total CO2 ABG O2 Saturation ABG O2 Content ABG Base Excess ABG Hemoglobin ABG Carboxyhemoglobin POC ABG HHb (Measured) ABG Methemoglobin ABG O2 Capacity VBG pH VBG pCO2 VBG HCO3 VBG Total CO2 VBG O2 Sat (Calc) VBG Base Excess VBG Potassium Hgb O2 Saturation Sodium Chloride Glucose Lactate FiO2 Potassium Carbon Dioxide Anion Gap BUN Creatinine Est GFR ( Amer) Est GFR (Non-Af Amer) POC Glucose (mg/dL) 107 Random Glucose Lactic Acid Calcium Phosphorus Magnesium Total Bilirubin AST ALT Alkaline Phosphatase Troponin I Total Protein Albumin Globulin Albumin/Globulin Ratio Venous Blood Potassium Urine Color Urine Appearance Urine pH Ur Specific Tabor Urine Protein Urine Glucose (UA) Urine Ketones Urine Blood Urine Nitrate Urine Bilirubin Urine Urobilinogen Ur Leukocyte Esterase Urine RBC Urine WBC Ur Epithelial Cells Urine Bacteria Assessment & Plan - Assessment and Plan (Free Text) Assessment: went over w/ resident at length and discussed orders and plan
[2017-05-28 22:19] LABS: URINE BACTERIA FEW (NEG); URINE RBC 0 - 2 /hpf (0-2); URINE WBC 15 - 20 /hpf (0-6)
[2017-05-28] MEDS ORDERED: cefTRIAXone 1 gm 1 GM/100 ML BAG IVPB STA (22:23)
[2017-05-28] MEDS ORDERED: Sodium Chloride 0.9% 1,000 ML IV SCH (22:45)
[2017-05-28] MEDS ORDERED: Pneumococcal 23-Valent Vaccine IM ONE (23:04)
[2017-05-28 23:05] VITALS: TEMP 98.1; BMI 20.8
[2017-05-28 23:46] LABS: ARTERIAL BLOOD GAS HCO3 32.8 mmol/L (21-28); ARTERIAL BLOOD GAS O2 CAPACITY 16.8 mL/dl (16-24); ARTERIAL BLOOD GAS O2 CONTENT 16.5 ML/dl (15-23); ARTERIAL BLOOD GAS PH 7.49 (7.35-7.45); ARTERIAL BLOOD HGB O2 SAT 95.6 % (95.0-98.0); CARBOXYHEMOGLOBIN 1.9 % (0.5-1.5); HHB 1.8 % (0-5); METHEMOGLOBIN 0.7 % (0.0-3.0)
[2017-05-28] MEDS: Magnesium Sulfate 2 GM in Sodium Chloride 0.9% 100 ML IVPB SCH (23:47)
[2017-05-29] MEDS: Pantoprazole 40mg/100ml IVPB 40 MG/100 ML BAG IV SCH (00:59)
[2017-05-29] MEDS: Magnesium Sulfate 2 GM in Sodium Chloride 0.9% 100 ML IVPB SCH (02:43)
[2017-05-29 06:21] LABS: BASO # 0.02 K/mm3 (0.0-2.0); BASO % 0.2 % (0.0-3.0); EOS # 0.1 (0.0-0.7); EOS % 1.6 % (1.5-5.0); GRAN # 5.72 (1.4-6.5); GRAN % 68.3 % (50.0-68.0); HEMATOCRIT 39.8 % (36.0-48.0); LYMPH # 1.9 (1.2-3.4); LYMPH % 22.6 % (22.0-35.0); MEAN CELL VOLUME 90.9 fl (80.0-105.0); MEAN CORPUSCULAR HEMOGLOBIN 29.2 pg (25.0-35.0); MEAN CORPUSCULAR HGB CONC 32.2 g/dl (31.0-37.0); MEAN PLATELET VOLUME 10.4 fl (7.0-11.0); MONO # 0.6 (0.1-0.6); MONO % 7.3 % (1.0-6.0); RED CELL DISTRIBUTION WIDTH 14.7 % (11.5-14.5); WHITE BLOOD COUNT 8.4 10^3/ul (4.5-11.0)
[2017-05-29 06:30] LABS: INR 1.19 (0.93-1.08); PARTIAL THROMBOPLASTIN TIME 29.6 Seconds (23.7-30.8)
[2017-05-29 06:37] LABS: ALB/GLOB RATIO 1.3 (1.1-1.8); ALKALINE PHOSPHATASE 58 U/L (38-126); ALT/SGPT 37 U/L (7-56); AST/SGOT 35 U/L (14-36); BILIRUBIN,TOTAL 0.8 mg/dL (0.2-1.3); BLOOD UREA NITROGEN 21 mg/dL (7-21); CALCIUM 9.1 mg/dL (8.4-10.5); CHLORIDE 95 mmol/L (98-107); GFR AFRICAN-AMERICAN > 60; GLUCOSE,RANDOM 98 mg/dL (70-110); MAGNESIUM 2.8 mg/dL (1.7-2.2); PHOSPHOROUS 3.9 mg/dL (2.5-4.5); POTASSIUM 3.6 mmol/L (3.6-5.0); SODIUM 140 mmol/L (132-148); TOTAL PROTEIN 5.9 g/dL (5.8-8.3)
[2017-05-29 08:01] LABS: CARBON DIOXIDE 35 mmol/L (21-33)
[2017-05-29] MEDS: Insulin Lispro (humaLOG) LOW Coverage SC SCH ×2 (08:08→12:03)
[2017-05-29 08:52] VITALS: BP 108/65; RESP 20; O2SAT 96
--- NOTE | 2017-05-29 09:21 | RAD ---
HISTORY: hx pleural effusion, f/u COMPARISON: Chest x-ray performed 05/28/17 TECHNIQUE: Chest, one view. FINDINGS: Examination limited by patient obliquity. LUNGS: No focal consolidation. PLEURA: No significant pleural effusion identified. No definite pneumothorax . CARDIOVASCULAR: Heart size appears within normal limits. Atherosclerotic calcifications of the aorta. OSSEOUS STRUCTURES: Osseous demineralization. Multilevel degenerative changes. Scoliosis. VISUALIZED UPPER ABDOMEN: Unremarkable. OTHER FINDINGS: None. IMPRESSION: No acute findings. See above.
--- NOTE | 2017-05-29 09:31 | CP.PCM.PN ---
Subjective - Date & Time of Evaluation Date of Evaluation: 05/29/17 Time of Evaluation: 09:28 - Subjective Subjective: PGY-[address] Mark Pt is awake and alert, sitting comfortably in bed. (+) constant ULQ pain vs reproducible rib pain on L. Denies MANTILLA, SOB, N/V/D/C, dysuria. Objective - Vital Signs/Intake and Output Vital Signs (last 24 hours): Temp Pulse Resp BP Pulse Ox 98.1 F 62 20 108/65 96 05/29/17 06:00 05/29/17 06:00 05/29/17 06:00 05/29/17 06:00 05/29/17 06:00 Intake and Output: 05/29/17 05/29/17 06:59 18:59 Intake Total 500 Output Total 100 Balance 400 - Medications Medications: Current Medications Apixaban (Eliquis) 2.5 mg PO BID [facility] PRN Reason: Protocol Last Admin: 05/28/17 23:56 Dose: 2.5 mg Aspirin (Aspirin Chewable) 81 mg PO DAILY [facility] Atorvastatin Calcium (Lipitor) 20 mg PO DIN [facility] Carvedilol (Coreg) 3.125 mg PO BID [facility] Digoxin (Lanoxin) 0.125 mg PO 1400 [facility] Sodium Chloride (Sodium Chloride 0.9%) 1,000 mls @ 30 mls/hr IV .Q24H [facility] Last Admin: 05/28/17 23:46 Dose: 30 mls/hr Ceftriaxone Sodium (Rocephin 1 Gram Ivpb) 1 gm in 100 mls @ 100 mls/hr IVPB DAILY [facility] PRN Reason: Protocol Insulin Human Lispro (Humalog Low) 0 units SC ACHS [facility] PRN Reason: Protocol Last Admin: 05/29/17 08:08 Dose: Not Given Ondansetron HCl (Zofran Inj) 4 mg IVP Q6H PRN PRN Reason: Nausea/Vomiting Pantoprazole Sodium (Protonix Inj) 40 mg IVP DAILY [facility] - Labs Labs: 05/29/17 06:00 05/29/17 06:00 PT 12.9 Seconds (9.9-11.8) H 05/29/17 06:00 INR 1.19 (0.93-1.08) H 05/29/17 06:00 APTT 29.6 Seconds (23.7-30.8) 05/29/17 06:00 - Constitutional Appears: No Acute Distress - Head Exam Head Exam: ATRAUMATIC, NORMAL INSPECTION, NORMOCEPHALIC - Eye Exam Eye Exam: EOMI, Normal appearance, PERRL. absent: Scleral icterus Pupil Exam: NORMAL ACCOMODATION - ENT Exam ENT Exam: Mucous Membranes Moist - Neck Exam Additional comments: No JVD distention - Respiratory Exam Respiratory Exam: Decreased Breath Sounds (bibasilar), Clear to Ausculation Bilateral. absent: Rales, Rhonchi, Wheezes - Cardiovascular Exam Cardiovascular Exam: REGULAR RHYTHM, +S1, +S2 - GI/Abdominal Exam GI & Abdominal Exam: Soft, Normal Bowel Sounds. absent: Firm, Guarding, Rigid, Tenderness, Rebound Additional comments: negative fritz, negative rovsing, negative mcburney, No suprapubic tenderness - Extremities Exam Extremities Exam: Normal Capillary Refill. absent: Calf Tenderness, Pedal Edema , Tenderness - Back Exam Back Exam: absent: CVA tenderness (L), CVA tenderness (R) - Neurological Exam Neurological Exam: Alert, Awake, Oriented x3 - Psychiatric Exam Psychiatric exam: Normal Affect, Normal Mood - Skin Skin Exam: Dry, Warm Assessment and Plan - Assessment and Plan (Free Text) Plan: This is an 81 yo F with PMH of hypertension, CVA with left-sided weakness, DM2 (15 years), arthritis, atrial fibrillation on eliquis, prior TIAs , chronic constipation. Hx rib fracture who presented to [facility] for left lower chest/LUQ abd pain with nausea and emesis x3 days. Pt was doing house chores when she felt the sharp pain, resting makes it better. Pain not associated with food or timing of eating. Assessment: Chest Pain: ACS vs stable angina vs Chostochondritis vs gastritis. Has R/O rib fracture/verterbral compression fracture Gastritis vs Diabetic gastroparesis vs PUD Hypovolemic state due to emesis and decrease PO intake Accidental lung nodule Plan: Chest Pain Left lower/LUQ abd pain x3 days ddx: Reproducible CP r/o ACS vs stable angina vs costochondritis 2/2 gastritis Has ruled out rib fracture Hx chronic compression deformity L2 vertebral, no acute fracture - Cardio (Dr. Cedillo) on board - EKG (05/28) = afib at 61bpm, no ST-T segment abnormalities, no changes consistent with STEMI - EKG (05/29) = - Trop x2 negative, trending - Protonix for abd pain/possible gastritis, Zofran PRN for nausea - Upgrade to liquid diet Possible LUQ Abdominal pain - CT Chest/Abd/Pelvis with IV C negative for acute findings, no pleural effusions - No signs of enteritis/diverticultiitis/apendicitis on CT R/O Pneumonia hx of pleural effusion s/p 4x thoracentesis - CT Chest/Abd/Pelvis: R middle lobe nodule noted 0.7cm sub-pleural - Repeat CXR (05/29) paroximals A-fib cardiovascular risk from Hx HTN, DM - Continue home Eliquis and digioxin 0.125 qd (level 1.2) - Coreg 3.125 BID (hold if HR < 60, SBP < 100) - Continue home ASA, Lipitor - TSH, A1C, lipid panel Primary metabolic alkalosis, likely vol contraction (emesis, decrease PO intake) - Pending Urine chloride level, may be skewed due to already receiving fluids in the ED - CXR and CT Chest/Abd/Pelvis negative for acute findings, no pleural effusions , but given reported hx of pleural effusion s/p 4x thoracentesis, would avoid aggressive hydration, NS 30cc/hr -K and Ca wnl, Mag low at 1.3, repleting and will recheck Elevated lactate, type A (poor Oxygenation) vs type B (decrease clearance/ increase generation) Possible induced by metformin or thiamine def - lactate 3.2, now 2.6 after receiving 500cc NS bolus in ED - likely from general hypoperfusion due to volume contraction and pre-renal state - LFT wnl; - GFR > 60 - Thiamine level Hx DM2 x 15 years - holding home oral hypoglycemics in favor of Lispro sliding scale and accuchecks ACHS - A1C - Need to d/c metformin and explore new hypoglycemic Hx HTN - currently hemodynamically stable - gently hydrating due to dehydration and hx of prior pleural effusions, avoid diuretics given metabolic derangements - holding home coreg to avoid bradycardia, continue to monitor BPs Accidental lung nodule, 0.7cm, RML - Follow up chest CT in 6-12 month outpatient - If non-smoker and unchange, additional f/u at 18-24 month - If smoker, additional f/u at 6-12 momth or if unchange 18-24 month Dispo: Remote tele obs, pending AM labs and Cardio eval and input FEN: CLD, NS 30cc/hr Access: Peripheral IV Consults: Cardio Ppx: Protonix covers GI, Eliquis covers for DVT will s/r/d/s Dr. Mark
[2017-05-29] MEDS ORDERED: cefTRIAXone 1 gm 1 GM/100 ML BAG IVPB SCH (10:00)
[2017-05-29 10:20] VITALS: PULSE 49
--- NOTE | 2017-05-29 10:31 | CON ---
CARDIOLOGY CONSULTATION DATE: 05/29/2017 HISTORY: The patient is an 81-year-old woman who presents with epigastric and abdominal discomfort. PAST MEDICAL HISTORY: The patient's past medical history includes diabetes mellitus, hypertension, and hypercholesterolemia. She has chronic atrial fibrillation which has been successfully treated with Eliquis. The patient denies chest pain, denies shortness of breath. This morning she was able to tolerate p.o. liquids. SOCIAL HISTORY: The patient does not smoke. Workup in the past is included in echocardiogram which reveals normal LV function with aortic sclerosis and mild pulmonary hypertension. REVIEW OF SYSTEMS: The 14 point review of systems is free of cardiac symptomatology. PHYSICAL EXAMINATION: VITAL SIGNS: Blood pressure is 108/65, heart rate in the 50s, atrial fibrillation. NECK: Negative JVD. LUNGS: Without rales. HEART: Reveals soft systolic ejection murmur. EXTREMITIES: Without edema. LABORATORY DATA: EKG shows atrial fibrillation with nonspecific ST-T changes. Hemoglobin is 12.8. Chemistries, troponins are negative x2. The magnesium is 2.8. IMPRESSION: 1. Nonspecific abdominal pain. 2. No evidence for acute coronary syndrome. 3. Chronic atrial fibrillation. 4. Hypertension. 5. Diabetes mellitus. 6. Hypertension. 7. Hypercholesterolemia. PLAN: Given these findings, we will continue the patient on Eliquis. Low-dose digoxin is her medication to help control help control her heart rate. We will DC telemetry today. Otilio Cedillo MD
[2017-05-29 10:46] LABS: VENOUS BLOOD GAS BASE EXCESS 9.3 mmol/L (0.0-2.0); VENOUS BLOOD PH 7.38 (7.32-7.43)
--- NOTE | 2017-05-29 11:45 | CP.PCM.DIS ---
<Dionne Raplh - Last Filed: 05/29/17 12:59> Provider - Provider Date of Admission: 05/28/17 21:35 Attending physician: Dandy Mark DO Primary care physician: Dr. Samuels Consults: Cardio = Dr. Cedillo Time Spent in preparation of Discharge (in minutes): 45 Hospital Course - Lab Results Lab Results: Most Recent Lab Values WBC 8.4 10^3/ul (4.5-11.0) 05/29/17 06:00 RBC 4.38 10^6/uL (3.5-6.1) 05/29/17 06:00 Hgb 12.8 g/dL (12.0-16.0) D 05/29/17 06:00 Hct 39.8 % (36.0-48.0) 05/29/17 06:00 MCV 90.9 fl (80.0-105.0) 05/29/17 06:00 MCH 29.2 pg (25.0-35.0) 05/29/17 06:00 MCHC 32.2 g/dl (31.0-37.0) 05/29/17 06:00 RDW 14.7 % (11.5-14.5) H 05/29/17 06:00 Plt Count 235 10^3/uL (120.0-450.0) 05/29/17 06:00 MPV 10.4 fl (7.0-11.0) 05/29/17 06:00 Gran % 68.3 % (50.0-68.0) H 05/29/17 06:00 Lymph % (Auto) 22.6 % (22.0-35.0) 05/29/17 06:00 Barnes % (Auto) 7.3 % (1.0-6.0) H 05/29/17 06:00 Eos % (Auto) 1.6 % (1.5-5.0) 05/29/17 06:00 Baso % (Auto) 0.2 % (0.0-3.0) 05/29/17 06:00 Gran # 5.72 (1.4-6.5) 05/29/17 06:00 Lymph # 1.9 (1.2-3.4) 05/29/17 06:00 Barnes # 0.6 (0.1-0.6) 05/29/17 06:00 Eos # 0.1 (0.0-0.7) 05/29/17 06:00 Baso # 0.02 K/mm3 (0.0-2.0) 05/29/17 06:00 PT 12.9 Seconds (9.9-11.8) H 05/29/17 06:00 INR 1.19 (0.93-1.08) H 05/29/17 06:00 APTT 29.6 Seconds (23.7-30.8) 05/29/17 06:00 D-Dimer, Quantitative 0.37 mg/L FEU (0-0.50) 05/28/17 17:15 pCO2 43 mm/Hg (35-45) 05/28/17 23:24 pO2 35 mm/Hg (30-55) 05/29/17 10:30 HCO3 32.8 mmol/L (21-28) H 05/28/17 23:24 ABG pH 7.49 (7.35-7.45) H 05/28/17 23:24 ABG Total CO2 34.1 mmol.L (22-28) H 05/28/17 23:24 ABG O2 Saturation 98.2 % (95-98) H 05/28/17 23:24 ABG O2 Content 16.5 ML/dl (15-23) 05/28/17 23:24 ABG Base Excess 8.5 mmol/L (-2.0-3.0) H 05/28/17 23:24 ABG Hemoglobin 12.2 g/dL (11.7-17.4) 05/28/17 23:24 ABG Carboxyhemoglobin 1.9 % (0.5-1.5) H 05/28/17 23:24 POC ABG HHb (Measured) 1.8 % (0-5) 05/28/17 23:24 ABG Methemoglobin 0.7 % (0.0-3.0) 05/28/17 23:24 ABG O2 Capacity 16.8 mL/dl (16-24) 05/28/17 23:24 VBG pH 7.38 (7.32-7.43) 05/29/17 10:30 VBG pCO2 62.0 (40-60) H 05/29/17 10:30 VBG HCO3 36.7 mmol/l (21-28) H 05/29/17 10:30 VBG Total CO2 38.6 mmol.L (22-28) H 05/29/17 10:30 VBG O2 Sat (Calc) 73.2 % (40-65) H 05/29/17 10:30 VBG Base Excess 9.3 mmol/L (0.0-2.0) H 05/29/17 10:30 VBG Potassium 3.7 mmol/L (3.6-5.2) 05/29/17 10:30 Hgb O2 Saturation 95.6 % (95.0-98.0) 05/28/17 23:24 Sodium 136.0 mmol/L (132-148) 05/29/17 10:30 Chloride 96.0 mmol/L (98-107) L 05/29/17 10:30 Glucose 176 mg/dl (65-105) H 05/29/17 10:30 Lactate 1.7 mmol/L (0.7-2.1) 05/29/17 10:30 FiO2 21.0 % 05/29/17 10:30 Sodium 140 mmol/L (132-148) 05/29/17 06:00 Potassium 3.6 mmol/L (3.6-5.0) 05/29/17 06:00 Chloride 95 mmol/L (98-107) L 05/29/17 06:00 Carbon Dioxide 35 mmol/L (21-33) H 05/29/17 06:00 Anion Gap 14 (10-20) 05/29/17 06:00 BUN 21 mg/dL (7-21) 05/29/17 06:00 Creatinine 0.7 mg/dL (0.5-1.4) 05/29/17 06:00 Est GFR ( Amer) > 60 05/29/17 06:00 Est GFR (Non-Af Amer) > 60 05/29/17 06:00 POC Glucose (mg/dL) 107 mg/dL (65-110) 05/29/17 07:40 Random Glucose 98 mg/dL (70-110) 05/29/17 06:00 Lactic Acid 1.0 mmol/L (0.7-2.1) 05/29/17 05:47 Calcium 9.1 mg/dL (8.4-10.5) 05/29/17 06:00 Phosphorus 3.9 mg/dL (2.5-4.5) 05/29/17 06:00 Magnesium 2.8 mg/dL (1.7-2.2) H 05/29/17 06:00 Total Bilirubin 0.8 mg/dL (0.2-1.3) 05/29/17 06:00 AST 35 U/L (14-36) 05/29/17 06:00 ALT 37 U/L (7-56) 05/29/17 06:00 Alkaline Phosphatase 58 U/L (38-126) 05/29/17 06:00 Lactate Dehydrogenase 471 U/L (333-699) 05/28/17 17:15 Total Creatine Kinase 26 U/L (35-230) L 05/28/17 17:15 Troponin I 0.02 ng/mL 05/29/17 07:00 NT-Pro-B Natriuret Pep 787 pg/mL (0-450) H 05/28/17 17:15 Total Protein 5.9 g/dL (5.8-8.3) 05/29/17 06:00 Albumin 3.4 g/dL (3.0-4.8) 05/29/17 06:00 Globulin 2.6 gm/dL 05/29/17 06:00 Albumin/Globulin Ratio 1.3 (1.1-1.8) 05/29/17 06:00 Lipase 75 U/L (23-300) 05/28/17 18:30 Venous Blood Potassium 3.7 mmol/L (3.6-5.2) 05/29/17 10:30 Urine Color Yellow (YELLOW) 05/28/17 21:57 Urine Appearance Clear (CLEAR) 05/28/17 21:57 Urine pH 8.5 (4.7-8.0) 05/28/17 21:57 Ur Specific Sterling 1.010 (1.005-1.035) 05/28/17 21:57 Urine Protein Trace mg/dL (<30 mg/dL) H 05/28/17 21:57 Urine Glucose (UA) Negative mg/dL (NEGATIVE) 05/28/17 21:57 Urine Ketones Negative mg/dL (NEGATIVE) 05/28/17 21:57 Urine Blood Negative (NEGATIVE) 05/28/17 21:57 Urine Nitrate Negative (NEGATIVE) 05/28/17 21:57 Urine Bilirubin Negative (NEGATIVE) 05/28/17 21:57 Urine Urobilinogen 0.2 E.U./dL (<1 E.U./dL) 05/28/17 21:57 Ur Leukocyte Esterase Small Farooq/uL (NEGATIVE) H 05/28/17 21:57 Urine RBC 0 - 2 /hpf (0-2) 05/28/17 21:57 Urine WBC 15 - 20 /hpf (0-6) 05/28/17 21:57 Ur Epithelial Cells 1 - 3 /hpf (0-5) 05/28/17 21:57 Urine Bacteria Few (NEG) 05/28/17 21:57 Digoxin 1.2 ng/mL (0.8-2.0) 05/28/17 18:30 - Hospital Course Hospital Course: This is an 81 yo F with PMH of hypertension, CVA with left-sided weakness, DM2 (15 years), arthritis, atrial fibrillation on eliquis, prior TIAs , chronic constipation and Hx rib fracture. Pt presented to [facility] for left lower chest/LUQ abd pain with nausea and emesis x3 days. Pt was doing house chores when she felt the sharp pain, resting makes it better. The pain was positional. Pain not associated with food or timing of eating. On exam, her lower left rib chest pain was reproducible by touch and there is positive suprapubic tenderness. Her U/A is positive for pyuria, and she is treated with rocephin. Pt was admitted under remote telemetry as observation to rule out acute coronary syndrome. Cardiology has ruled out ACS. Pt likely has atypical chest pain likely from Chostochondritis. CT does not show acute fracture; verterbral compression fracture of L2 is chronic. Pt has metabolic alkalosis likely from hypovolemic state due to emesis and decrease PO intake. Pt received normal saline IVF. there is an accidental lung nodule, 0.7cm. This is to be followed up outpatient. Patient is stable and will be discharged home Atypical Chest Pain likely due to costochrondritis Has ruled out ACS Has ruled out acute fracture Has ruled out pleural effusion/PNA Hx chronic compression deformity L2 vertebral, no acute fracture Unlikely gastritis/gastropareis - Cardio (Dr. Cedillo) on board - EKG (05/28) = afib at 61bpm, no ST-T segment abnormalities, no changes consistent with STEMI - EKG (05/29) = no significant changes - Trop x2 negative - Protonix for abd pain/possible gastritis, Zofran PRN for nausea - Upgrade to regular diet, tolerating well Possible LUQ Abdominal pain - CT Chest/Abd/Pelvis with IV C negative for acute findings, no pleural effusions - No signs of enteritis/diverticultiitis/apendicitis on CT R/O Pneumonia hx of pleural effusion s/p 4x thoracentesis - CT Chest/Abd/Pelvis: R middle lobe nodule noted 0.7cm sub-pleural - Repeat CXR (05/29) showed no significant changes paroximals A-fib cardiovascular risk from Hx HTN, DM - Continue home Eliquis and digioxin 0.125 qd (level 1.2) - discontinue 3.125 BID due to bradycardia - Continue home ASA, Lipitor Primary metabolic alkalosis, likely vol contraction (emesis, decrease PO intake ) - improving on IVF - Pending Urine chloride level, may be skewed due to already receiving fluids in the ED - CXR and CT Chest/Abd/Pelvis negative for acute findings, no pleural effusions , but given reported hx of pleural effusion s/p 4x thoracentesis, would avoid aggressive hydration, NS 30cc/hr -K and Ca wnl, Mag low at 1.3, repleting and level improved Elevated lactate, type A (poor Oxygenation) vs type B (decrease clearance/ increase generation) Possible induced by metformin or thiamine def - lactate 3.2, now 2.6 after receiving 500cc NS bolus in ED - likely from general hypoperfusion due to volume contraction and pre-renal state - LFT wnl; - GFR > 60 - May check thiamine outpatient. Discontinue metformin Hx DM2 x 15 years - holding home oral hypoglycemics in favor of Lispro sliding scale and accuchecks ACHS - A1C 6 (february 2017) - Need to d/c metformin and explore new hypoglycemic Hx HTN - currently hemodynamically stable - gently hydrating due to dehydration and hx of prior pleural effusions, avoid diuretics given metabolic derangements - holding home coreg to avoid bradycardia, continue to monitor BPs Accidental lung nodule, 0.7cm, RML - Follow up chest CT in 6-12 month outpatient - If non-smoker and unchange, additional f/u at 18-24 month - If smoker, additional f/u at 6-12 momth or if unchange 18-24 month s/r/d/s Dr. Mark Discharge Exam - Head Exam Head Exam: ATRAUMATIC, NORMAL INSPECTION, NORMOCEPHALIC - Eye Exam Eye Exam: EOMI, Normal appearance, PERRL. absent: Scleral icterus Pupil Exam: NORMAL ACCOMODATION, PERRL - ENT Exam ENT Exam: Mucous Membranes Moist - Neck Exam Additional comments: supple - Respiratory Exam Respiratory Exam: NORMAL BREATHING PATTERN. absent: Rales, Rhonchi, Wheezes - Cardiovascular Exam Cardiovascular Exam: Irregular Rhythm, +S1, +S2 Additional comments: L lower rib pain reproducible by touch - GI/Abdominal Exam GI & Abdominal Exam: Normal Bowel Sounds, Soft. absent: Diminished Bowel Sounds , Distended, Guarding, Rigid, Tenderness Additional comments: (+) suprapubic tenderness - Extremities Exam Extremities exam: normal capillary refill, pedal pulses present Additional comments: no edema b/l. negative anju b/l - Back Exam Back exam: absent: CVA tenderness (L), CVA tenderness (R) - Neurological Exam Neurological exam: Alert, Oriented x3 - Psychiatric Exam Psychiatric exam: Normal Affect, Normal Mood - Skin Skin Exam: Dry, Warm Discharge Plan - Discharge Medications Prescriptions: Acetaminophen [Tylenol 325mg tab] 650 mg PO TID PRN #1 tab PRN Reason: Pain, Mild (1-3) Nitrofurantoin Macrocrystals [Macrobid] 100 mg PO BID #10 cap Ondansetron ODT [Zofran ODT] 4 mg PO TID PRN #8 odt PRN Reason: Nausea/Vomiting - Follow Up Plan Condition: STABLE Disposition: HOME/ ROUTINE Instructions: Chest Pain (ED) Additional Instructions: Discharge Instructions 1. Finish the 5 days course of macrobid for urinary tract infection. 2. Increase fluid intake at home 3. Zofran oral disintergrated tablet as needed for nausea and vomiting. If nausea/vomiting does not resolve in next 2 days, call primary care doctor or go to emergency room 4. follow up with accounting intern, Dr. Cedillo, in 1-2 weeks 5. follow up with primary care doctor, Dr. Samuels, in 1 week 6. If new symptoms, call primary care doctor or go to emergency room New Meds Discontinued coreg because this med will make patient's heart rate too low. Pt' s Atrial fibrillation is controlled by digioxin. Discontinued metformin, A1C is 6 (February 2017) and suspected it causes increase lactate Tylenol as needed for rib pain due to costochondritis. Do not take more than 2400mg in a day. Try warm/cold compresses. Do not use more than 15 minutes per compress session. Macrobid, antibiotics for 5 days, for UTI Zofran as needed for nausea and vomiting Continue other home meds Discharge diagnosis Urinary tract infection Chest Pain has ruled out ACS Atypical chest pain likely from Chostochondritis Has ruled out rib fracture; verterbral compression fracture is chronic Hypovolemic state due to emesis and decrease PO intake Accidental lung nodule, 0.7cm Referrals: Elia Samuels MD [Family Provider] - Otilio Cedillo MD [Staff Provider] - <Dandy Mark - Last Filed: 05/30/17 10:11> Provider - Provider Date of Admission: 05/28/17 21:35 Attending physician: Dandy Mark DO Hospital Course - Lab Results Lab Results: Most Recent Lab Values WBC 8.4 10^3/ul (4.5-11.0) 05/29/17 06:00 RBC 4.38 10^6/uL (3.5-6.1) 05/29/17 06:00 Hgb 12.8 g/dL (12.0-16.0) D 05/29/17 06:00 Hct 39.8 % (36.0-48.0) 05/29/17 06:00 MCV 90.9 fl (80.0-105.0) 05/29/17 06:00 MCH 29.2 pg (25.0-35.0) 05/29/17 06:00 MCHC 32.2 g/dl (31.0-37.0) 05/29/17 06:00 RDW 14.7 % (11.5-14.5) H 05/29/17 06:00 Plt Count 235 10^3/uL (120.0-450.0) 05/29/17 06:00 MPV 10.4 fl (7.0-11.0) 05/29/17 06:00 Gran % 68.3 % (50.0-68.0) H 05/29/17 06:00 Lymph % (Auto) 22.6 % (22.0-35.0) 05/29/17 06:00 Barnes % (Auto) 7.3 % (1.0-6.0) H 05/29/17 06:00 Eos % (Auto) 1.6 % (1.5-5.0) 05/29/17 06:00 Baso % (Auto) 0.2 % (0.0-3.0) 05/29/17 06:00 Gran # 5.72 (1.4-6.5) 05/29/17 06:00 Lymph # 1.9 (1.2-3.4) 05/29/17 06:00 Barnes # 0.6 (0.1-0.6) 05/29/17 06:00 Eos # 0.1 (0.0-0.7) 05/29/17 06:00 Baso # 0.02 K/mm3 (0.0-2.0) 05/29/17 06:00 PT 12.9 Seconds (9.9-11.8) H 05/29/17 06:00 INR 1.19 (0.93-1.08) H 05/29/17 06:00 APTT 29.6 Seconds (23.7-30.8) 05/29/17 06:00 D-Dimer, Quantitative 0.37 mg/L FEU (0-0.50) 05/28/17 17:15 pCO2 43 mm/Hg (35-45) 05/28/17 23:24 pO2 35 mm/Hg (30-55) 05/29/17 10:30 HCO3 32.8 mmol/L (21-28) H 05/28/17 23:24 ABG pH 7.49 (7.35-7.45) H 05/28/17 23:24 ABG Total CO2 34.1 mmol.L (22-28) H 05/28/17 23:24 ABG O2 Saturation 98.2 % (95-98) H 05/28/17 23:24 ABG O2 Content 16.5 ML/dl (15-23) 05/28/17 23:24 ABG Base Excess 8.5 mmol/L (-2.0-3.0) H 05/28/17 23:24 ABG Hemoglobin 12.2 g/dL (11.7-17.4) 05/28/17 23:24 ABG Carboxyhemoglobin 1.9 % (0.5-1.5) H 05/28/17 23:24 POC ABG HHb (Measured) 1.8 % (0-5) 05/28/17 23:24 ABG Methemoglobin 0.7 % (0.0-3.0) 05/28/17 23:24 ABG O2 Capacity 16.8 mL/dl (16-24) 05/28/17 23:24 VBG pH 7.38 (7.32-7.43) 05/29/17 10:30 VBG pCO2 62.0 (40-60) H 05/29/17 10:30 VBG HCO3 36.7 mmol/l (21-28) H 05/29/17 10:30 VBG Total CO2 38.6 mmol.L (22-28) H 05/29/17 10:30 VBG O2 Sat (Calc) 73.2 % (40-65) H 05/29/17 10:30 VBG Base Excess 9.3 mmol/L (0.0-2.0) H 05/29/17 10:30 VBG Potassium 3.7 mmol/L (3.6-5.2) 05/29/17 10:30 Hgb O2 Saturation 95.6 % (95.0-98.0) 05/28/17 23:24 Sodium 136.0 mmol/L (132-148) 05/29/17 10:30 Chloride 96.0 mmol/L (98-107) L 05/29/17 10:30 Glucose 176 mg/dl (65-105) H 05/29/17 10:30 Lactate 1.7 mmol/L (0.7-2.1) 05/29/17 10:30 FiO2 21.0 % 05/29/17 10:30 Sodium 140 mmol/L (132-148) 05/29/17 06:00 Potassium 3.6 mmol/L (3.6-5.0) 05/29/17 06:00 Chloride 95 mmol/L (98-107) L 05/29/17 06:00 Carbon Dioxide 35 mmol/L (21-33) H 05/29/17 06:00 Anion Gap 14 (10-20) 05/29/17 06:00 BUN 21 mg/dL (7-21) 05/29/17 06:00 Creatinine 0.7 mg/dL (0.5-1.4) 05/29/17 06:00 Est GFR ( Amer) > 60 05/29/17 06:00 Est GFR (Non-Af Amer) > 60 05/29/17 06:00 POC Glucose (mg/dL) 141 mg/dL (65-110) H 05/29/17 11:54 Random Glucose 98 mg/dL (70-110) 05/29/17 06:00 Lactic Acid 1.0 mmol/L (0.7-2.1) 05/29/17 05:47 Calcium 9.1 mg/dL (8.4-10.5) 05/29/17 06:00 Phosphorus 3.9 mg/dL (2.5-4.5) 05/29/17 06:00 Magnesium 2.8 mg/dL (1.7-2.2) H 05/29/17 06:00 Total Bilirubin 0.8 mg/dL (0.2-1.3) 05/29/17 06:00 AST 35 U/L (14-36) 05/29/17 06:00 ALT 37 U/L (7-56) 05/29/17 06:00 Alkaline Phosphatase 58 U/L (38-126) 05/29/17 06:00 Lactate Dehydrogenase 471 U/L (333-699) 05/28/17 17:15 Total Creatine Kinase 26 U/L (35-230) L 05/28/17 17:15 Troponin I 0.02 ng/mL 05/29/17 07:00 NT-Pro-B Natriuret Pep 787 pg/mL (0-450) H 05/28/17 17:15 Total Protein 5.9 g/dL (5.8-8.3) 05/29/17 06:00 Albumin 3.4 g/dL (3.0-4.8) 05/29/17 06:00 Globulin 2.6 gm/dL 05/29/17 06:00 Albumin/Globulin Ratio 1.3 (1.1-1.8) 05/29/17 06:00 Lipase 75 U/L (23-300) 05/28/17 18:30 Venous Blood Potassium 3.7 mmol/L (3.6-5.2) 05/29/17 10:30 Urine Color Yellow (YELLOW) 05/28/17 21:57 Urine Appearance Clear (CLEAR) 05/28/17 21:57 Urine pH 8.5 (4.7-8.0) 05/28/17 21:57 Ur Specific [place] 1.010 (1.005-1.035) 05/28/17 21:57 Urine Protein Trace mg/dL (<30 mg/dL) H 05/28/17 21:57 Urine Glucose (UA) Negative mg/dL (NEGATIVE) 05/28/17 21:57 Urine Ketones Negative mg/dL (NEGATIVE) 05/28/17 21:57 Urine Blood Negative (NEGATIVE) 05/28/17 21:57 Urine Nitrate Negative (NEGATIVE) 05/28/17 21:57 Urine Bilirubin Negative (NEGATIVE) 05/28/17 21:57 Urine Urobilinogen 0.2 E.U./dL (<1 E.U./dL) 05/28/17 21:57 Ur Leukocyte Esterase Small Far[place]q/uL (NEGATIVE) H 05/28/17 21:57 Urine RBC 0 - 2 /hpf (0-2) 05/28/17 21:57 Urine WBC 15 - 20 /hpf (0-6) 05/28/17 21:57 Ur Epithelial Cells 1 - 3 /hpf (0-5) 05/28/17 21:57 Urine Bacteria Few (NEG) 05/28/17 21:57 Digoxin 1.2 ng/mL (0.8-2.0) 05/28/17 18:30 Discharge Exam - Additional Findings Additional findings: discussed w/ resident and went over plans at length
[2017-05-29] MEDS ORDERED: Sodium Chloride 0.9% 1,000 ML IV SCH (12:52)
[2017-05-29] MEDS ORDERED: Digoxin 125 mcg (0.125 mg) Tab PO SCH (14:00)
--- NOTE | 2017-05-30 03:09 | DS ---
HISTORY OF PRESENT ILLNESS: I saw her this morning. She is much better than when she came in. She has no more abdominal or left chest pain. It could have been gas. She has had trauma there in the past. MEDICATIONS: She is on aspirin, Coreg, Eliquis, insulin coverage, digoxin, Lipitor, Protonix, Rocephin, which was stopped, IV fluids, Zofran. Overall, I think she is doing much better. PHYSICAL EXAMINATION: VITAL SIGNS: 98.1 temperature, 62 pulse, 108/65 blood pressure, 20 respirations rate, 96% O2 saturation on room air. HEENT: Head is atraumatic, normocephalic. HEART: Regular rate. LUNGS: Clear to auscultation. ABDOMEN: Soft. EXTREMITIES: No edema. LABORATORY DATA: She had white count of 8.4, hemoglobin 12.8, hematocrit 39.8, platelets of 235. She has 140 sodium, potassium 3.6, BUN 29, and creatinine 0.7. GFR is greater than 60. Sugars 98. Calcium is 9.1. Lactic acid is 1, phosphorus 3.9, magnesium 2.8, total bilirubin is 0.8, AST 35, ALT is 37, alkaline phosphatase 58, troponins at 0.02 and 0.02 and total protein is 5.9. IMPRESSION AND PLAN: She had consults with Dr. Cedillo, the [facility]. He said to continue the Eliquis, low dose digoxin. Discontinue telemetry. Nonspecific abdominal pain. She ate breakfast well. We increased her diet for lunch. If she eats well for lunch, our plan is to discharge her this afternoon. She was here for chest pain, abdominal pain, chronic atrial fibrillation, hypertension, and diabetes, and hopefully she will be discharged with the same medications she came in on and follow with Dr. Samuels in a week. This was discussed with resident and we will follow up this afternoon. Dandy Mark DO
--- NOTE | 2017-05-30 07:18 | CARD ---
APPROVED REPORT EKG Measurement Heart [id number] <Conclusion> Atrial fibrillation Left axis deviation Septal infarct, age undetermined Abnormal ECG
--- NOTE | 2017-05-30 07:24 | CARD ---
APPROVED REPORT EKG Measurement Heart [id number] <Conclusion> Atrial fibrillation Left axis deviation Inferior infarct, age undetermined Anteroseptal infarct, age undetermined Abnormal ECG
[2017-06-01 06:19] LABS: CHLORIDE URINE 23 mmol/L (32-290)
== END 2017-05-29 15:33 | disposition home or self-care (01) ==
LOC: ED 16:14 → ERH 21:35 → 3RNO 22:33
PROVIDERS: ADMIT Family Medicine; ATTEND Family Medicine
DX: R07.89 Other chest pain (principal); N39.0 Urinary tract infection, site not specified; E87.3 Alkalosis; I48.2 Chronic atrial fibrillation; I10 Essential (primary) hypertension; E11.9 Type 2 diabetes mellitus without complications; E86.0 Dehydration; E78.00 Pure hypercholesterolemia, unspecified; I27.2 Other secondary pulmonary hypertension; I69.354 Hemiplegia and hemiparesis following cerebral infarction affecting left non-dominant side; M19.90 Unspecified osteoarthritis, unspecified site; K59.09 Other constipation; Z79.01 Long term (current) use of anticoagulants; Z79.82 Long term (current) use of aspirin
CPT/HCPCS: 36415; 71010; 71260; 74177; 80053; 80162; 81001; 82436; 82550; 82803; 82948; 83605; 83615; 83690; 83735; 83880; 84100; 84484; 85025; 85378; 85610; 85730; 87040; 87086; 93005; 96365; 96366; 96367; 96375; 96376; 99285; C9113; G0378; J0696; J2405; J3475; J7040; Q9967

== ENCOUNTER 2017-06-12 19:36 | Inpatient (IN) | payer MEDICARE ==
[2017-06-12 19:36] VITALS: PULSE 71; BMI 20.8
[2017-06-12 20:04] LABS: BASO # 0.01 K/mm3 (0.0-2.0); BASO % 0.1 % (0.0-3.0); EOS # 0.1 (0.0-0.7); GRAN # 4.54 (1.4-6.5); LYMPH # 2.4 (1.2-3.4); LYMPH % 31.7 % (22.0-35.0); MEAN CELL VOLUME 89.5 fl (80.0-105.0); MEAN CORPUSCULAR HEMOGLOBIN 29.3 pg (25.0-35.0); MEAN CORPUSCULAR HGB CONC 32.7 g/dl (31.0-37.0); MEAN PLATELET VOLUME 10.1 fl (7.0-11.0); MONO # 0.6 (0.1-0.6); MONO % 8.2 % (1.0-6.0); RED CELL DISTRIBUTION WIDTH 14.5 % (11.5-14.5); WHITE BLOOD COUNT 7.7 10^3/ul (4.5-11.0)
[2017-06-12 20:13] LABS: INR 1.27 (0.93-1.08); PARTIAL THROMBOPLASTIN TIME 25.6 Seconds (23.7-30.8)
[2017-06-12 20:20] LABS: ALB/GLOB RATIO 1.4 (1.1-1.8); BILIRUBIN,TOTAL 0.6 mg/dL (0.2-1.3); CALCIUM 9.9 mg/dL (8.4-10.5); MAGNESIUM 1.2 mg/dL (1.7-2.2); TOTAL PROTEIN 7.2 g/dL (5.8-8.3)
[2017-06-12 20:32] LABS: TROPONIN I 0.02 ng/mL
[2017-06-12 20:57] LABS: URINE BILIRUBIN NEGATIVE (NEGATIVE); URINE BLOOD NEGATIVE (NEGATIVE); URINE GLUCOSE (UA) NEGATIVE (NEGATIVE); URINE KETONE NEGATIVE (NEGATIVE); URINE LEUKOCYTE ESTERASE MODERATE Leu/uL (NEGATIVE); URINE PROTEIN NEGATIVE mg/dL (<30 mg/dL); URINE UROBILINOGEN 0.2 E.U./dL (<1 E.U./dL)
[2017-06-12 21:13] LABS: URINE APPEARANCE SL CLOUDY (CLEAR); URINE COLOR YELLOW (YELLOW)
[2017-06-12 21:14] LABS: URINE BACTERIA MOD (NEG); URINE RBC NEGATIVE /hpf (0-2); URINE WBC 15 - 20 /hpf (0-6)
[2017-06-12] MEDS ORDERED: Cefepime 1gm in NS 100ml 1 GM/100 ML BAG IVPB STA (21:24)
[2017-06-12] MEDS ORDERED: Aspirin 325 mg EC Tablets PO STA (21:26)
--- NOTE | 2017-06-12 21:41 | ED PDOC ---
Arrival/HPI - General Chief Complaint: Chest Pain Time Seen by Provider: 06/12/17 19:39 Historian: Patient - History of Present Illness Narrative History of Present Illness (Text): 06/12/17 19:40 Ammy Jeter is a 81 year old female who presents to the emergency department complaining of left sided chest pain that started yesterday. Patient denies any fever, chills, shortness of breath, nausea, vomiting, diarrhea, urinary symptoms , back pain, neck pain, headache, dizziness, or any other complaints. Time/Duration: 24 hours Symptom Onset: Gradual Symptom Course: Unchanged Severity Level: Mild Activities at Onset: Rest Context: Home Past Medical History - Provider Review Nursing Documentation Reviewed: Yes - Infectious Disease Hx of Infectious Diseases: None - Cardiac Hx Cardiac Disorders: Yes (Afib) Hx Hypertension: Yes - Pulmonary Hx Respiratory Disorders: No - Neurological Hx Neurological Disorder: No - HEENT Hx HEENT Disorder: No - Renal Hx Renal Disorder: No - Endocrine/Metabolic Hx Endocrine Disorders: Yes Hx Diabetes Mellitus Type 1: Yes - Hematological/Oncological Hx Blood Disorders: No - Integumentary Hx Dermatological Disorder: No - Musculoskeletal/Rheumatological Hx Musculoskeletal Disorders: Yes Hx Falls: Yes - Gastrointestinal Hx Gastrointestinal Disorders: No - Genitourinary/Gynecological Hx Genitourinary Disorders: No Hx Reproductive Disorders: No - Psychiatric Hx Psychophysiologic Disorder: No Hx Substance Use: No - Surgical History Hx Orthopedic Surgery: Yes Other/Comment: right wrist x10 years ago, bunionectomy - Anesthesia Hx Anesthesia Reactions: (UNK) Hx Malignant Hyperthermia: (UNK) Family/Social History - Physician Review Nursing Documentation Reviewed: Yes Family/Social History: No Known Family HX Smoking Status: Never Smoked Hx Alcohol Use: No Hx Substance Use: No Allergies/Home Meds Allergies/Adverse Reactions: Allergies FISH Allergy (Verified 05/28/17 22:06) RASH Home Medications: Home Meds Medication Instructions Recorded Confirmed Apixaban [Eliquis] 2.5 mg PO BID 06/12/17 06/12/17 Aspirin [Adult Low Dose Aspirin EC] 81 mg PO DAILY 06/12/17 06/12/17 Atorvastatin [Lipitor] 20 mg PO DAILY 06/12/17 06/12/17 Digoxin [Lanoxin] mcg PO DAILY 06/12/17 Docusate [Colace] 100 mg PO BID 06/12/17 06/12/17 GlipiZIDE [Glucotrol] 5 mg PO DAILY 06/12/17 06/12/17 Omeprazole 20 mg PO DAILY 06/12/17 06/12/17 Review of Systems - Physician Review All systems were reviewed & negative as marked: Yes - Review of Systems Constitutional: absent: Fevers, Night Sweats Eyes: absent: Vision Changes ENT: absent: Hearing Changes Respiratory: absent: SOB, Cough Cardiovascular: Chest Pain Gastrointestinal: absent: Abdominal Pain, Stool Changes Genitourinary Female: absent: Dysuria, Frequency Musculoskeletal: absent: Arthralgias, Back Pain Skin: absent: Rash, Pruritis Neurological: absent: Headache, Dizziness Endocrine: absent: Diaphoresis, Polyuria Hemo/Lymphatic: absent: Adenopathy, Easy Bleeding Physical Exam Vital Signs Reviewed: Yes Vital Signs Temp Pulse Pulse Resp BP Pulse Ox 06/12/17 23:00 71 16 134/88 100 06/12/17 21:50 67 16 145/90 99 06/12/17 20:50 65 18 150/62 98 06/12/17 19:45 68 18 100 06/12/17 19:42 97.7 F 79 20 124/77 100 Temperature: Afebrile Blood Pressure: Normal Pulse: Regular Respiratory Rate: Normal Appearance: Positive for: Well-Appearing, Non-Toxic, Comfortable Pain Distress: None Mental Status: Positive for: Alert and Oriented X 3 - Systems Exam Head: Present: Atraumatic, Normocephalic Pupils: Present: PERRL Extroacular Muscles: Present: EOMI Conjunctiva: Present: Normal Mouth: Present: Moist Mucous Membranes Neck: Present: Normal Range of Motion Respiratory/Chest: Present: Tender to Palpation (pain reciprocal tender to palpation to left chest wall ) Cardiovascular: Present: Regular Rate and Rhythm, Normal S1, S2. No: Murmurs Abdomen: Present: Normal Bowel Sounds. No: Tenderness, Distention, Peritoneal Signs Back: Present: Normal Inspection Upper Extremity: Present: Normal Inspection. No: Cyanosis, Edema Lower Extremity: Present: Normal Inspection. No: Edema Neurological: Present: GCS=15, CN II-XII Intact, Speech Normal Skin: Present: Warm, Dry, Normal Color. No: Rashes Psychiatric: Present: Alert, Oriented x 3, Normal Insight, Normal Concentration Medical Decision Making ED Course and Treatment: 06/12/17 19:50 Impression: 81 year old female complaining of left sided chest pain started yesterday. Differential Diagnosis included but are not limited to: Plan: -- EKG -- Chest X-ray -- Blood Culture -- Urine Culture -- Ecotrin and Maxipime -- Reassess and disposition Prior Visits: Notes and results from previous visits were reviewed. Patient last seen in the ED on 05/28/17 for left lower rib pain x 3 days. Patient was admitted to hospitalist care for further evaluation. Progress Notes:case dr pastor for dr peraza will obs on tele 06/13/17 04:29 06/13/17 04:31 - Lab Interpretations Lab Results: 06/12/17 19:50 06/12/17 19:50 Lab Results 06/12/17 20:50: Urine Color Yellow, Urine Appearance Sl cloudy, Urine pH 6.0, Ur Specific Boles 1.015, Urine Protein Negative, Urine Glucose (UA) Negative, Urine Ketones Negative, Urine Blood Negative, Urine Nitrate Negative, Urine Bilirubin Negative, Urine Urobilinogen 0.2, Ur Leukocyte Esterase Moderate H, Urine RBC Negative, Urine WBC 15 - 20, Ur Epithelial Cells 4 - 5, Urine Bacteria Mod 06/12/17 19:50: Sodium 140, Potassium 4.0, Chloride 90 L, Carbon Dioxide 37 H, Anion Gap 17, BUN 38 H, Creatinine 1.2, Est GFR ( Amer) 52, Est GFR (Non- Af Amer) 43, Random Glucose 178 H, Calcium 9.9, Magnesium 1.2 L, Total Bilirubin 0.6, AST 47 H D, ALT 44, Alkaline Phosphatase 60, Lactate Dehydrogenase 484, Total Creatine Kinase 29 L, Troponin I 0.02, NT-Pro-B Natriuret Pep 940 H, Total Protein 7.2, Albumin 4.2, Globulin 3.0, Albumin/ Globulin Ratio 1.4 06/12/17 19:50: PT 13.7 H, INR 1.27 H, APTT 25.6 06/12/17 19:50: WBC 7.7, RBC 4.58, Hgb 13.4, Hct 41.0, MCV 89.5, MCH 29.3, MCHC 32.7, RDW 14.5, Plt Count 276, MPV 10.1, Gran % 59.0, Lymph % (Auto) 31.7, Mckenzie % (Auto) 8.2 H, Eos % (Auto) 1.0 L, Baso % (Auto) 0.1, Gran # 4.54, Lymph # 2.4 , Mckenzie # 0.6, Eos # 0.1, Baso # 0.01 I have reviewed the lab results: Yes - RAD Interpretation Radiology Orders: 06/12/17 19:51 CHEST PORTABLE [RAD] Stat - Medication Orders Current Medication Orders: Apixaban (Eliquis) 2.5 mg PO BID JALIL PRN Reason: Protocol Aspirin (Ecotrin) 81 mg PO DAILY JALIL Atorvastatin Calcium (Lipitor) 20 mg PO DAILY JALIL Ciprofloxacin (Cipro) 500 mg PO Q24H JALIL PRN Reason: Protocol Stop: 06/15/17 01:01 Last Admin: 06/13/17 02:44 Dose: 500 mg Docusate Sodium (Colace) 100 mg PO BID JALIL Sodium Chloride (Sodium Chloride 0.9%) 1,000 mls @ 100 mls/hr IV .Q10H JALIL Last Admin: 06/13/17 02:44 Dose: 100 mls/hr Ibuprofen (Motrin Tab) 400 mg PO Q6H PRN PRN Reason: Pain, Mild (1-3) Insulin Human Lispro (Humalog Low) 0 units SC ACHS JALIL PRN Reason: Protocol Pantoprazole Sodium (Protonix Ec Tab) 40 mg PO 0600 JALIL Discontinued Medications Aspirin (Ecotrin) 325 mg PO STAT STA Stop: 06/12/17 21:27 Last Admin: 06/12/17 21:35 Dose: 325 mg Cefepime HCl (Maxipime 1gm) 1 gm in 100 mls @ 100 mls/hr IVPB STAT STA PRN Reason: Protocol Stop: 06/12/17 22:23 Last Admin: 06/12/17 21:43 Dose: 100 mls/hr Magnesium Oxide (Mag-Ox) 200 mg PO STAT STA Stop: 06/12/17 23:09 Last Admin: 06/12/17 23:55 Dose: 200 mg - Scribe Statement The provider has reviewed the documentation as recorded by the Cheri Barrios Provider Scribe Attestation: All medical record entries made by the Billibjennifer were at my direction and personally dictated by me. I have reviewed the chart and agree that the record accurately reflects my personal performance of the history, physical exam, medical decision making, and the department course for this patient. I have also personally directed, reviewed, and agree with the discharge instructions and disposition. Disposition/Present on Arrival - Present on Arrival Any Indicators Present on Arrival: No History of DVT/PE: No History of Uncontrolled Diabetes: Yes Urinary Catheter: No History of Decub. Ulcer: No History Surgical Site Infection Following: None - Disposition Have Diagnosis and Disposition been Completed?: Yes Diagnosis: Chest pain, Paroxysmal atrial fibrillation, UTI (urinary tract infection) Disposition: HOSPITALIZED Disposition Time: 21:30 Patient Problems: Current Active Problems Problem Status Onset Chest pain Acute Paroxysmal atrial fibrillation Acute UTI (urinary tract infection) Acute Condition: GOOD
[2017-06-12] MEDS ORDERED: Magnesium Oxide 400 mg Tab UD PO STA (23:08)
[2017-06-13 00:20] LABS: BASO # 0.02 K/mm3 (0.0-2.0); BASO % 0.2 % (0.0-3.0); EOS # 0.1 (0.0-0.7); EOS % 1.4 % (1.5-5.0); GRAN # 4.94 (1.4-6.5); GRAN % 57.8 % (50.0-68.0); HEMATOCRIT 38.1 % (36.0-48.0); LYMPH # 2.9 (1.2-3.4); LYMPH % 33.7 % (22.0-35.0); MEAN CELL VOLUME 89.6 fl (80.0-105.0); MEAN CORPUSCULAR HEMOGLOBIN 29.2 pg (25.0-35.0); MEAN CORPUSCULAR HGB CONC 32.5 g/dl (31.0-37.0); MEAN PLATELET VOLUME 9.6 fl (7.0-11.0); MONO # 0.6 (0.1-0.6); MONO % 6.9 % (1.0-6.0); RED CELL DISTRIBUTION WIDTH 14.5 % (11.5-14.5); WHITE BLOOD COUNT 8.6 10^3/ul (4.5-11.0)
--- NOTE | 2017-06-13 00:39 | CP.PCM.HP ---
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 She states the pain started yesterday morning at home and was laying down when she first noticed it. When patient is asked to point to the pain she points to the angle of the ribs on the left under her breast. The pain as constant, sharp, reproducible when pressed on and worse when she exhales. Pt denies radiation of the pain, diaphoresis, or palpitations. (+) nausea and vomiting x 1.. (+) Acid reflux. She reports she was previously hospitalized for similar rib pain ROS: (+) tinnitus as whooshing sound EK/17: Afib with ventricular rate of 83, QTC 358 Last echo: February 2016, EF was normal, mild aortic stenosis, no wall motion abnormality, mild pulmonary HTN No recent stress test/Cath Denies jaw pain, vision changes, SOB, cough, fever, runny nose, sick contacts, numbness, tingling, or recent travel. 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 Samuels Outpt apns: Dr. Cedillo Present on Admission - Present on Admission Any Indicators Present on Admission: No Review of Systems - Constitutional Constitutional: absent: Chills, Headache - EENT Eyes: absent: Change in Vision Ears: Tinnitus - Cardiovascular Cardiovascular: Chest Pain. absent: Dyspnea, Lightheadedness - Respiratory Respiratory: absent: Cough, Dyspnea, Dyspnea on Exertion - Gastrointestinal Gastrointestinal: Constipation, Nausea, Vomiting. absent: Abdominal Pain, Diarrhea - Genitourinary Genitourinary: absent: Dysuria Past Patient History - Infectious Disease Hx of Infectious Diseases: None - Past Social History Smoking Status: Never Smoked - CARDIAC Hx Cardiac Disorders: Yes (Afib) Hx Hypertension: Yes - PULMONARY Hx Respiratory Disorders: No - NEUROLOGICAL Hx Neurological Disorder: No - HEENT Hx HEENT Problems: No - RENAL Hx Chronic Kidney Disease: No - ENDOCRINE/METABOLIC Hx Endocrine Disorders: Yes Hx Diabetes Mellitus Type 1: Yes - HEMATOLOGICAL/ONCOLOGICAL Hx Blood Disorders: No - INTEGUMENTARY Hx Dermatological Problems: No - MUSCULOSKELETAL/RHEUMATOLOGICAL Hx Musculoskeletal Disorders: Yes Hx Falls: Yes - GASTROINTESTINAL Hx Gastrointestinal Disorders: No - GENITOURINARY/GYNECOLOGICAL Hx Genitourinary Disorders: No Hx Reproductive Disorders: No - PSYCHIATRIC Hx Psychophysiologic Disorder: No Hx Substance Use: No - SURGICAL HISTORY Hx Orthopedic Surgery: Yes Other/Comment: right wrist x10 years ago, bunionectomy - ANESTHESIA Hx Anesthesia Reactions: (UNK) Hx Malignant Hyperthermia: (UNK) Meds Allergies/Adverse Reactions: Allergies Allergy/AdvReac Type Severity Reaction Status Date / Time FISH Allergy RASH Verified 05/28/17 22:06 Physical Exam - Constitutional Appears: Non-toxic - Head Exam Head Exam: ATRAUMATIC, NORMAL INSPECTION, NORMOCEPHALIC - Eye Exam Eye Exam: EOMI, Normal appearance - Respiratory Exam Respiratory Exam: NORMAL BREATHING PATTERN - Cardiovascular Exam Cardiovascular Exam: Irregular Rhythm - GI/Abdominal Exam GI & Abdominal Exam: Normal Bowel Sounds - Neurological Exam Neurological exam: Alert, Oriented x3 Results - Vital Signs Recent Vital Signs: Last Vital Signs Temp 97.7 F 06/12/17 19:42 Pulse 71 06/12/17 23:00 Resp 16 06/12/17 23:00 BP 134/88 06/12/17 23:00 Pulse Ox 100 06/12/17 23:00 - Labs Result Diagrams: 06/12/17 23:55 06/12/17 23:55 Assessment & Plan - Assessment and Plan (Free Text) Assessment: This is an 81 yo F with significant cardiovascular risk factor (PMH of CVA with left-sided weakness, DM2, hypertension, HLD), atrial fibrillation on eliquis, 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 Chest pain r/o ACS vs atypical chest pain due to Chostochondritis vs gastritis vs GERD, doubt lung nodule. UTI evidenced by pyuria with super pubic tenderness. TYRON due to creatinine increase by 0.5, pre-renal vs intrinsic vs extrinsic Plan: 1. Acute Chest Pain R/O ACS -AM EKG -Serial Troponins (first trop 0.02) -Chest x-ray from today showed no significant changes as compared to 2 weeks ago , pending official read -Tele Monitor -cardiology consulted -Echo ordered -continue 81mg aspirin and Lipitor -Lipid panel ordered 2.Atypical chest pain - protonix trial for possible GI etiology - Motrin PRN for possible MSK pain - rib series 3. TYRON due to creatinine increase by 0.5, pre-renal vs intrinsic vs extrinsic. BUN/Cre = 38 - Extrinsic Strict I/O, bladder scan as needed. Hold u/s of renal pending clinical course - Pre-renal likely. If improve with fluid, Myah, Ucre, - Intrinsic - less likely (U eso,) 4.Tinnitus- pulsatile, likely peripheral causes due to HTN -consider MRI of brain or CT head pending clinical courses -neuro exam normal -PT evaluation for gait and balance 5.History of Chronic Afib - Continue digoxin Dig level ordered 6.Diabetes controlled (A1C of 6.February) -A1C -hold oral hypoglycemic -insulin sliding scale low 7.HTN - patient hemodynamically stable, BP 134/88, P 71 -diet controlled 8.UTI -Pyuria with suprapubic tenderness - Started on Ciprofloxacin 9. GI Prophylaxis and DVT Prophylaxis - Patient already on Eliquis -Protonix trial started 10. FEN - NS @ - Heat healthy/carb consist 11. Consult - Cardiology
[2017-06-13 00:54] LABS: CALCIUM 9.4 mg/dL (8.4-10.5); POTASSIUM 3.7 mmol/L (3.6-5.0)
[2017-06-13] MEDS: Sodium Chloride 0.9% 1,000 ML IV SCH ×2 (02:44→12:31)
[2017-06-13] MEDS: Pantoprazole 40 mg EC Tab PO SCH (06:49)
[2017-06-13] MEDS: Insulin Lispro (humaLOG) LOW Coverage SC SCH ×4 (08:45→22:59)
[2017-06-13 08:57] LABS: BASO # 0.02 K/mm3 (0.0-2.0); BASO % 0.3 % (0.0-3.0); EOS # 0.1 (0.0-0.7); EOS % 1.6 % (1.5-5.0); GRAN # 4.73 (1.4-6.5); GRAN % 62.3 % (50.0-68.0); HEMATOCRIT 40.2 % (36.0-48.0); LYMPH # 2.2 (1.2-3.4); LYMPH % 29.3 % (22.0-35.0); MEAN CELL VOLUME 90.3 fl (80.0-105.0); MEAN CORPUSCULAR HEMOGLOBIN 29.2 pg (25.0-35.0); MEAN CORPUSCULAR HGB CONC 32.3 g/dl (31.0-37.0); MEAN PLATELET VOLUME 9.9 fl (7.0-11.0); MONO # 0.5 (0.1-0.6); MONO % 6.5 % (1.0-6.0); RED CELL DISTRIBUTION WIDTH 14.4 % (11.5-14.5); WHITE BLOOD COUNT 7.6 10^3/ul (4.5-11.0)
[2017-06-13 09:00] LABS: BLOOD UREA NITROGEN 31 mg/dL (7-21); CALCIUM 9.2 mg/dL (8.4-10.5); CARBON DIOXIDE 36 mmol/L (21-33); CHLORIDE 95 mmol/L (98-107); CHOLESTEROL 134 mg/dL (130-200); GFR AFRICAN-AMERICAN > 60; GLUCOSE,RANDOM 135 mg/dL (70-110); POTASSIUM 3.6 mmol/L (3.6-5.0); SODIUM 140 mmol/L (132-148)
[2017-06-13 09:12] LABS: TROPONIN I 0.04 ng/mL
--- NOTE | 2017-06-13 10:39 | RAD ---
HISTORY: Chest pain COMPARISON: 05/29/2017 FINDINGS: LUNGS: The lungs are well inflated and clear. PLEURA: No significant pleural effusion identified, no pneumothorax apparent. CARDIOVASCULAR: The heart is normal in size. Atherosclerotic aortic arch calcifications are present. OSSEOUS STRUCTURES: There is diffuse bone demineralization. There are old fracture deformities in the left posterior 6th and 7th ribs. VISUALIZED UPPER ABDOMEN: Normal. OTHER FINDINGS: None. IMPRESSION: No acute findings.
--- NOTE | 2017-06-13 12:11 | CARD ---
APPROVED REPORT EKG Measurement Heart [id number] <Conclusion> Atrial fibrillation Left axis deviation Septal infarct, age undetermined Inferior infarct, age undetermined ST & T wave abnormality, consider lateral ischemia or digitalis effect Abnormal ECG
[2017-06-13] MEDS: Magnesium Oxide 400 mg Tab UD PO SCH ×2 (12:29→17:29)
--- NOTE | 2017-06-13 14:25 | RAD ---
PROCEDURE: Radiographs of the Chest and Left Ribs. HISTORY: Rib pain COMPARISON: None available. TECHNIQUE: Frontal radiograph of the chest and multiple oblique radiographs of the left ribs were obtained. FINDINGS: LEFT RIBS: No fracture or focal lesion visualized. LUNGS: Clear. PLEURA: No pneumothorax or pleural fluid. CARDIOVASCULAR: Normal sized heart. No pulmonary vascular congestion. OTHER FINDINGS: None. IMPRESSION: No acute fracture. Clear lung.
--- NOTE | 2017-06-13 20:21 | CARD ---
APPROVED REPORT EXAM: Two-dimensional and M-mode echocardiogram with Doppler and color Doppler. INDICATION Chest Pain 2D DIMENSIONS Left Atrium (2D)4.6 (1.6-4.0cm)IVSd1.3 (0.7-1.1cm) LVDd4.1 (3.9-5.9cm)PWd1.1 (0.7-1.1cm) LVDs2.7 (2.5-4.0cm)FS (%) 35.5 % LVEF (%)65.5 (>50%) M-Mode DIMENSIONS Aortic Root2.80 (2.2-3.7cm)Aortic Cusp Exc.1.10 (1.5-2.0cm) Aortic Valve AoV Peak Qjclaues915.0cm/Qamar Peak GR.9mmHgAI P 1/2 [id number] Mitral Valve MV E Rzednwos87.2cm/sMV A Avkiofnh03.9cm/sE/A ratio2.3 TDI E/Lateral E'0.0E/Medial E'0.0 Tricuspid Valve TR Peak [id number]/sRAP [id number] Peak Gr.36mmHg [id number] LEFT VENTRICLE The left ventricle is normal size. There is mild concentric left ventricular hypertrophy. The left ventricular function is normal. The left ventricular ejection fraction is within the normal range. There is normal LV segmental wall motion. RIGHT VENTRICLE The right ventricle is normal size. There is normal right ventricular wall thickness. The right ventricular systolic function is normal. ATRIA The left atrium is moderately dilated. The right atrium is moderately dilated. AORTIC VALVE The aortic valve is moderately thickened. There is mild to moderate aortic regurgitation. MITRAL VALVE Mitral regurgitation is mild to moderate. TRICUSPID VALVE There is moderate to severe tricuspid regurgitation. There is mild to moderate pulmonary hypertension. GREAT VESSELS The aortic root is normal in size. The IVC is normal in size and collapses >50% with inspiration. <Conclusion> The left ventricle is normal size. There is mild concentric left ventricular hypertrophy. The left ventricular function is normal. The left ventricular ejection fraction is within the normal range. There is normal LV segmental wall motion. There is mild to moderate aortic regurgitation. Mitral regurgitation is mild to moderate. There is moderate to severe tricuspid regurgitation. There is mild to moderate pulmonary hypertension.
--- NOTE | 2017-06-13 20:57 | CARD ---
APPROVED REPORT EKG Measurement Heart [id number] <Conclusion> Atrial fibrillation Left axis deviation Inferior infarct, age undetermined Anteroseptal infarct, age undetermined Abnormal ECG
--- NOTE | 2017-06-13 23:46 | CON ---
DATE: 06/13/2017 CARDIOLOGY CONSULTATION HISTORY: The patient is an 81-year-old woman who presents with pleuritic-like chest discomfort in the left sternal area. The patient's past medical history includes diabetes mellitus, hypercholesterolemia. She was admitted to the hospital recently for atrial fibrillation and possible TIA in which she was treated with digoxin as well as Eliquis. Currently, the patient's symptoms are improved. She denies shortness of breath. SOCIAL HISTORY: The patient does not smoke. Fourteen-point review of systems is reviewed in detail. No cardiac symptomatology is noted. PHYSICAL EXAMINATION: VITAL SIGNS: On physical exam, blood pressure is 128/84, the heart rate is in the 60s, atrial fibrillation. NECK: Negative JVD. LUNGS: Without rales. HEART: Reveals S1, S2. EXTREMITIES: Without edema. The chest pain is reproducible by having the patient inspire as well as reproducible on palpation. EKG shows atrial fibrillation with nonspecific ST-T changes. Laboratories are negative x3. BUN and creatinine are unremarkable. Hemoglobin is 13. IMPRESSION 1. Pleuritic-like chest pain. 2. Rule out musculoskeletal pain. 3. No evidence for acute coronary syndrome. 4. Chronic atrial fibrillation. 5. Diabetes mellitus. Given these findings, I agree with continuing her Eliquis. From a cardiac perspective, the patient can be discharged. We will arrange for an outpatient stress test. Otilio Cedillo MD
[2017-06-14] MEDS: Sodium Chloride 0.9% 1,000 ML IV SCH ×4 (01:00→23:42)
[2017-06-14] MEDS: Magnesium Oxide 400 mg Tab UD PO SCH ×2 (10:18→17:36)
[2017-06-14] MEDS: Insulin Lispro (humaLOG) LOW Coverage SC SCH ×4 (10:19→22:53)
--- NOTE | 2017-06-14 14:47 | PN ---
CARDIOLOGY FOLLOWUP DATE: 06/14/2017 SUBJECTIVE: The patient is now complaining of lower back pain, stating it is similar to her previous symptoms of sciatica. PHYSICAL EXAMINATION: VITAL SIGNS: Blood pressure is 164/76, the heart rate is in the 70s. NECK: Negative JVD. LUNGS: Without rales. HEART: Reveals S1, S2. EXTREMITIES: Without edema. LABORATORY DATA: Glucose is 135. Troponin is 0.04, hemoglobin is 13.0. IMPRESSION: 1. Resolution of her focal pleuritic chest pain. 2. No evidence for acute coronary syndrome. 3. History of hypertension. 4. Echocardiogram reveals good LV function with [id number] mitral regurgitation. PLAN: Given these findings, we will discontinue telemetry today. We will order an outpatient stress test once her back and her weakness is better. This can be done as an outpatient. Otilio Cedillo MD
--- NOTE | 2017-06-14 16:01 | RAD ---
PROCEDURE: Bone survey HISTORY: rule out lytic lesions COMPARISON: None TECHNIQUE: AP and lateral radiographs of the spine, AP radiographs of the humerus and femur, AP radiographs of the pelvis, ribs and lateral radiographs of the skull were obtained. FINDINGS: There is moderate dextroscoliosis in the thoracic spine. There is normal thoracic kyphosis and lumbar lordosis. There is diffuse bone demineralization. There are age indeterminate mild superior endplate compression deformities in the mid thoracic spine and age indeterminate superior endplate compression deformity in the L2 vertebral body. There is mild multilevel degenerative disc disease in the spine. There are no lytic lesions in the calvarium, pelvis, and bilateral femur right humerus. There is mild degenerative osteoarthrosis in the glenohumeral and knee joints. IMPRESSION: 1. The radiographic evidence for lytic lesions. 2. Age-indeterminate compression deformities in the mid thoracic spine and L2 vertebral body. 3. Moderate dextroscoliosis in the thoracic spine.
[2017-06-14 17:37] LABS: IMMUNOGLOBULIN A 254.9 mg/dL (70.0-400.0); IMMUNOGLOBULIN G 879.6 mg/dL (700.0-1600.0); IMMUNOGLOBULIN M 68.9 mg/dL (40.0-230.0)
--- NOTE | 2017-06-14 19:28 | CON ---
DATE: 06/14/2017 REASON FOR CONSULT: Pathological rib fracture. HISTORY OF PRESENT ILLNESS: The patient is an 81-year-old female with past medical history of CVA with left-sided weakness, diabetes type 2, hypertension, atrial fibrillation on Eliquis, subpleural lung nodule within the right middle lobe 0.7 cm, chronic constipation, who was admitted through the emergency room for left-sided chest pain. She has currently undergone full cardiac workup and no pathology has been found. She was noted to have old rib fractures on the 6th and 7th rib on the left side, which do cause her discomfort especially when she is moving or when she takes a deep breath. She has also lost over 10 pounds in the last month. She denies any fevers, night sweats, or any other complaints. PAST MEDICAL HISTORY: As above, history of CVA with left-sided weakness, hypertension, hyperlipidemia, atrial fibrillation, diabetes type 2, right middle lobe lung nodule, and chronic constipation. SOCIAL HISTORY: She denies tobacco use. No alcohol use. No drug use. FAMILY HISTORY: Noncontributory. There is no family history of cancer. MEDICATIONS: Her medications are as per the MAR. ALLERGIES: NO KNOWN DRUG ALLERGIES. REVIEW OF SYSTEMS: As per the HPI. PHYSICAL EXAMINATION: VITAL SIGNS: Reveal a temperature of 98.0, pulse of 86, respiratory rate of 20, and a blood pressure of 118/78. GENERAL: The patient is an elderly pleasant female, lying in bed, in no acute distress. She does appear chronically ill. HEENT: Normocephalic and atraumatic. Eyes: Pupils equal, round, and reactive to light and accommodation. Extraocular muscles are intact. There is some pallor. No icterus is noted. NECK: Supple with no adenopathy. No JVD. No thyromegaly. LUNGS: Decreased breath sounds bilaterally secondary to poor effort. CARDIOVASCULAR: S1 and S2 is heard. ABDOMEN: Positive bowel sounds. Soft, nontender, and nondistended. No organomegaly is palpated. EXTREMITIES: There is no edema, clubbing, or cyanosis. LABORATORY DATA: Her labs reveal a white count of 7.6, hemoglobin of 13.0, hematocrit of 40.2, MCV of 90.3, and a platelet count of 247. Chemistries are within normal limits except for a slightly elevated BUN. Her chest x-ray does reveal old healing fractures. ASSESSMENT AND PLAN: Elderly female with recent weight loss plus old healing fractures in the ribs without any trauma. She will need a screen for malignancy. We will check myeloma workup and she states that she has had ongoing screening with mammogram and no pathology has been found. We will check tumor markers. The patient to follow up with me as an outpatient. Thank you for the consult. We will follow. Luis Carlos Irene MD
--- NOTE | 2017-06-14 21:05 | CP.PCM.PN ---
Subjective - Date & Time of Evaluation Date of Evaluation: 06/14/17 Time of Evaluation: 11:00 - Subjective Subjective: Patient seen and examined at bedside. No acute events overnight. Resting comfortably in chair at bedside. Patient states her left sided rib pain has improved since admission. Admits to right sided low back pain. Denies f/c/cp/sob /abdominal pain/n/v/diarrhea/constipation/urinary sxs. Objective - Vital Signs/Intake and Output Vital Signs (last 24 hours): Temp Pulse Resp BP Pulse Ox 98.6 F 82 18 150/70 100 06/14/17 18:00 06/14/17 18:29 06/14/17 18:00 06/14/17 18:29 06/14/17 06:00 - Medications Medications: Current Medications Apixaban (Eliquis) 2.5 mg PO BID [facility] PRN Reason: Protocol Last Admin: 06/14/17 17:35 Dose: 2.5 mg Aspirin (Ecotrin) 81 mg PO DAILY [facility] Last Admin: 06/14/17 10:19 Dose: 81 mg Atorvastatin Calcium (Lipitor) 20 mg PO DAILY [facility] Last Admin: 06/14/17 10:19 Dose: 20 mg Ciprofloxacin (Cipro) 500 mg PO Q24H [facility] PRN Reason: Protocol Stop: 06/15/17 01:01 Last Admin: 06/14/17 01:02 Dose: 500 mg Docusate Sodium (Colace) 100 mg PO BID [facility] Last Admin: 06/14/17 17:35 Dose: 100 mg Sodium Chloride (Sodium Chloride 0.9%) 1,000 mls @ 100 mls/hr IV .Q10H [facility] Last Admin: 06/14/17 17:36 Dose: Not Given Ibuprofen (Motrin Tab) 400 mg PO Q6H PRN PRN Reason: Pain, Mild (1-3) Last Admin: 06/13/17 09:39 Dose: 400 mg Insulin Human Lispro (Humalog Low) 0 units SC ACHS [facility] PRN Reason: Protocol Last Admin: 06/14/17 17:35 Dose: 1 units Magnesium Oxide (Mag-Ox) 400 mg PO BID [facility] Last Admin: 06/14/17 17:36 Dose: 400 mg Metoprolol Tartrate (Lopressor) 25 mg PO BID [facility] Last Admin: 06/14/17 18:29 Dose: 25 mg Pantoprazole Sodium (Protonix Ec Tab) 40 mg PO 0600 [facility] Last Admin: 06/13/17 06:49 Dose: 40 mg - Labs Labs: PT 13.7 Seconds (9.9-11.8) H 06/12/17 19:50 INR 1.27 (0.93-1.08) H 06/12/17 19:50 APTT 25.6 Seconds (23.7-30.8) 06/12/17 19:50 - Constitutional Appears: Well, Non-toxic - Head Exam Head Exam: ATRAUMATIC, NORMAL INSPECTION - Eye Exam Eye Exam: EOMI, Normal appearance - ENT Exam ENT Exam: Mucous Membranes Moist - Neck Exam Neck Exam: Normal Inspection. absent: Tenderness - Respiratory Exam Respiratory Exam: Chest Wall Tenderness, Clear to Ausculation Bilateral, NORMAL BREATHING PATTERN - Cardiovascular Exam Cardiovascular Exam: +S1, +S2 - GI/Abdominal Exam GI & Abdominal Exam: Soft. absent: Tenderness - Extremities Exam Extremities Exam: Normal Inspection - Back Exam Back Exam: NORMAL INSPECTION, paraspinal tenderness, tenderness - Neurological Exam Neurological Exam: Alert, Awake, Oriented x3 - Psychiatric Exam Psychiatric exam: Normal Affect, Normal Mood - Skin Skin Exam: Intact, Normal Color Assessment and Plan - Assessment and Plan (Free Text) Assessment: Assessment Patient is a81 yo F with a pmhx of CVA with left-sided weakness, DM2, hypertension, HLD, atrial fibrillation on eliquis, sub pleural lung nodule of the right middle lobe 0.7cm, and chronic constipation who was admitted to the hospital for evaluation and treatment of left sided chest pain. Plan Acute Chest Pain R/O ACS -Serial Troponins (first trop 0.02)- negative -Chest x-ray from today showed no significant changes as compared to 2 weeks ago , pending official read -cardiology consulted- continue eliquis, no acs -Echo ordered- await read -continue 81mg aspirin and Lipitor Back Pain - skeletal survery ordered Atypical chest pain - protonix trial for possible GI etiology - Motrin PRN for possible MSK pain - rib series - no acute fracture TYRON due to creatinine increase by 0.5 - Pre-renal likely. If improve with fluid, Myah, Ucre, History of Chronic Afib - Continue digoxin Dig level ordered Diabetes controlled (A1C of 6.February) -A1C -hold oral hypoglycemic -insulin sliding scale low UTI -Pyuria with suprapubic tenderness - Started on Ciprofloxacin patient case discussed with and plan approved by attending physician, Dr. Samuels.
[2017-06-15 03:34] LABS: TOTAL PROTEIN, SERUM 5.6 g/dL (6.1-8.1)
[2017-06-15] MEDS: Sodium Chloride 0.9% 1,000 ML IV SCH ×2 (05:05→13:15)
[2017-06-15] MEDS: Pantoprazole 40 mg EC Tab PO SCH (05:29)
[2017-06-15] MEDS: Insulin Lispro (humaLOG) LOW Coverage SC SCH ×4 (08:09→21:10)
[2017-06-15] MEDS: Magnesium Oxide 400 mg Tab UD PO SCH ×2 (10:33→18:08)
[2017-06-15 12:04] LABS: BETA 1 GLOBULIN 0.4 g/dL (0.4-0.6); BETA 2 GLOBULIN 0.3 g/dL (0.2-0.5); GAMMA GLOBULIN 0.8 g/dL (0.8-1.7)
--- NOTE | 2017-06-15 13:45 | CP.PCM.PN ---
Subjective - Date & Time of Evaluation Date of Evaluation: 06/22/17 Time of Evaluation: 09:30 - Subjective Subjective: Patient seen and examined at bedside. No acute events overnight. Patient states left lateral rib pain has improved since admission. Low right back pain is still at baseline. Offers no new complaints at this time. Denies f/c/cp/sob/abd pain/n/v/diarrhea/constipation/urinary symptoms. Objective - Vital Signs/Intake and Output Vital Signs (last 24 hours): Temp Pulse Resp BP Pulse Ox 98.4 F 74 20 148/76 98 06/15/17 06:00 06/15/17 10:33 06/15/17 06:00 06/15/17 06:00 06/15/17 06:00 Intake and Output: 06/15/17 06/15/17 06:59 18:59 Intake Total 1680 Balance 1680 - Medications Medications: Current Medications Apixaban (Eliquis) 2.5 mg PO BID [facility] PRN Reason: Protocol Last Admin: 06/15/17 10:33 Dose: 2.5 mg Aspirin (Ecotrin) 81 mg PO DAILY [facility] Last Admin: 06/15/17 10:33 Dose: 81 mg Atorvastatin Calcium (Lipitor) 20 mg PO DAILY [facility] Last Admin: 06/15/17 10:33 Dose: 20 mg Docusate Sodium (Colace) 100 mg PO BID [facility] Last Admin: 06/15/17 10:32 Dose: 100 mg Gabapentin (Neurontin) 100 mg PO TID [facility] PRN Reason: Protocol Last Admin: 06/15/17 13:14 Dose: 100 mg Sodium Chloride (Sodium Chloride 0.9%) 1,000 mls @ 100 mls/hr IV .Q10H [facility] Last Admin: 06/15/17 13:15 Dose: 100 mls/hr Ibuprofen (Motrin Tab) 400 mg PO Q6H PRN PRN Reason: Pain, Mild (1-3) Last Admin: 06/13/17 09:39 Dose: 400 mg Insulin Human Lispro (Humalog Low) 0 units SC ACHS [facility] PRN Reason: Protocol Last Admin: 06/15/17 13:07 Dose: 3 units Magnesium Oxide (Mag-Ox) 400 mg PO BID [facility] Last Admin: 06/15/17 10:33 Dose: 400 mg Metoprolol Tartrate (Lopressor) 25 mg PO BID [facility] Last Admin: 06/15/17 10:33 Dose: 25 mg Pantoprazole Sodium (Protonix Ec Tab) 40 mg PO 0600 [facility] Last Admin: 06/15/17 05:29 Dose: 40 mg - Labs Labs: PT 13.7 Seconds (9.9-11.8) H 06/12/17 19:50 INR 1.27 (0.93-1.08) H 06/12/17 19:50 APTT 25.6 Seconds (23.7-30.8) 06/12/17 19:50 - Additional Findings Additional findings: - Head Exam Head Exam: ATRAUMATIC, NORMAL INSPECTION - Eye Exam Eye Exam: EOMI, Normal appearance - ENT Exam ENT Exam: Mucous Membranes Moist - Neck Exam Neck Exam: Normal Inspection. absent: Tenderness - Respiratory Exam Respiratory Exam: Chest Wall Tenderness, Clear to Ausculation Bilateral, NORMAL BREATHING PATTERN - Cardiovascular Exam Cardiovascular Exam: +S1, +S2 - GI/Abdominal Exam GI & Abdominal Exam: Soft. absent: Tenderness - Extremities Exam Extremities Exam: Normal Inspection - Back Exam Back Exam: NORMAL INSPECTION, paraspinal tenderness, tenderness, no step off sign - Neurological Exam Neurological Exam: Alert, Awake, Oriented x 3 - Psychiatric Exam Psychiatric exam: Normal Affect, Normal Mood - Skin Skin Exam: Intact, Normal Color Assessment and Plan - Assessment and Plan (Free Text) Assessment: Assessment Patient is a81 yo F with a pmhx of CVA with left-sided weakness, DM2, hypertension, HLD, atrial fibrillation on eliquis, sub pleural lung nodule of the right middle lobe 0.7cm, and chronic constipation who was admitted to the hospital for evaluation and treatment of left sided chest pain. Plan Acute Chest Pain R/O ACS -Serial Troponins- negative -Chest x-ray from today showed no significant changes as compared to 2 weeks ago , pending official read -cardiology consulted- continue eliquis, no acs as per cardiology -Echo ordered- LVEF 65.5% outpatient stress test as per cardiology -continue 81mg aspirin and Lipitor Back Pain - skeletal survery ordered- results noted evidence of lytic lesions, age indeterminate compression deformities in the mid thoracic spine and L2 vertebral body - heme/onc stated to follow up outpatient regarding lab work up - start gabapentin 100 mg TID today, see how she tolerates and d/c to TCU if approved Atypical chest pain - protonix - Motrin PRN for possible MSK pain - rib series - no acute fracture History of Chronic Afib - Continue metoprolol Diabetes controlled (A1C of 6.February) -A1C -hold oral hypoglycemic -insulin sliding scale low UTI -Pyuria with suprapubic tenderness - c/w Ciprofloxacin patient case discussed with and plan approved by attending physician, Dr. Shepherd.
[2017-06-15 14:29] LABS: BASO # 0.01 K/mm3 (0.0-2.0); BASO % 0.1 % (0.0-3.0); EOS # 0.1 (0.0-0.7); EOS % 1.8 % (1.5-5.0); GRAN # 5.12 (1.4-6.5); GRAN % 66.6 % (50.0-68.0); HEMATOCRIT 36.2 % (36.0-48.0); LYMPH # 1.9 (1.2-3.4); LYMPH % 24.6 % (22.0-35.0); MEAN CELL VOLUME 90.5 fl (80.0-105.0); MEAN PLATELET VOLUME 9.6 fl (7.0-11.0); MONO # 0.5 (0.1-0.6); MONO % 6.9 % (1.0-6.0); RED CELL DISTRIBUTION WIDTH 14.3 % (11.5-14.5); WHITE BLOOD COUNT 7.7 10^3/ul (4.5-11.0)
[2017-06-15 14:39] LABS: ALB/GLOB RATIO 1.2 (1.1-1.8); ALKALINE PHOSPHATASE 65 U/L (38-126); ALT/SGPT 51 U/L (7-56); AST/SGOT 47 U/L (14-36); BILIRUBIN,TOTAL 0.5 mg/dL (0.2-1.3); BLOOD UREA NITROGEN 20 mg/dL (7-21); CALCIUM 8.6 mg/dL (8.4-10.5); CARBON DIOXIDE 28 mmol/L (21-33); CHLORIDE 102 mmol/L (98-107); GFR AFRICAN-AMERICAN > 60; GLUCOSE,RANDOM 199 mg/dL (70-110); POTASSIUM 4.1 mmol/L (3.6-5.0); SODIUM 139 mmol/L (132-148)
[2017-06-16] MEDS: Sodium Chloride 0.9% 1,000 ML IV SCH ×2 (03:53→11:00)
[2017-06-16] MEDS: Pantoprazole 40 mg EC Tab PO SCH (06:13)
[2017-06-16 07:33] LABS: BASO # 0.02 K/mm3 (0.0-2.0); BASO % 0.3 % (0.0-3.0); EOS # 0.2 (0.0-0.7); EOS % 3.2 % (1.5-5.0); GRAN # 3.82 (1.4-6.5); GRAN % 54.8 % (50.0-68.0); HEMATOCRIT 34.8 % (36.0-48.0); LYMPH # 2.4 (1.2-3.4); LYMPH % 34.1 % (22.0-35.0); MEAN CELL VOLUME 90.6 fl (80.0-105.0); MEAN CORPUSCULAR HEMOGLOBIN 28.6 pg (25.0-35.0); MEAN CORPUSCULAR HGB CONC 31.6 g/dl (31.0-37.0); MEAN PLATELET VOLUME 9.9 fl (7.0-11.0); MONO # 0.5 (0.1-0.6); MONO % 7.6 % (1.0-6.0); RED CELL DISTRIBUTION WIDTH 14.4 % (11.5-14.5)
[2017-06-16 07:55] LABS: ALB/GLOB RATIO 1.2 (1.1-1.8); ALKALINE PHOSPHATASE 58 U/L (38-126); ALT/SGPT 58 U/L (7-56); AST/SGOT 64 U/L (14-36); BILIRUBIN,TOTAL 0.6 mg/dL (0.2-1.3); BLOOD UREA NITROGEN 19 mg/dL (7-21); CALCIUM 8.9 mg/dL (8.4-10.5); CARBON DIOXIDE 30 mmol/L (21-33); CHLORIDE 107 mmol/L (98-107); GFR AFRICAN-AMERICAN > 60; GLUCOSE,RANDOM 120 mg/dL (70-110); POTASSIUM 4.3 mmol/L (3.6-5.0); SODIUM 144 mmol/L (132-148); TOTAL PROTEIN 5.4 g/dL (5.8-8.3)
[2017-06-16] MEDS: Insulin Lispro (humaLOG) LOW Coverage SC SCH ×4 (08:56→22:44)
[2017-06-16] MEDS: Magnesium Oxide 400 mg Tab UD PO SCH ×2 (09:52→18:38)
--- NOTE | 2017-06-16 12:11 | CP.PCM.DIS ---
Provider - Provider Date of Admission: 06/14/17 10:23 Attending physician: Elia Samuels MD Primary care physician: Elia Samuels MD Diagnosis - Discharge Diagnosis (1) Lytic lesion of bone on x-ray Status: Acute Priority: High (2) Hypertension Status: Chronic Priority: Medium (3) Chest pain Status: Chronic Priority: Medium (4) Paroxysmal atrial fibrillation Status: Chronic Priority: Medium (5) UTI (urinary tract infection) Status: Acute Priority: Medium (6) CVA (cerebrovascular accident) Status: Chronic Priority: Medium Hospital Course - Lab Results Lab Results: Most Recent Lab Values WBC 7.0 10^3/ul (4.5-11.0) 06/16/17 07:25 RBC 3.84 10^6/uL (3.5-6.1) 06/16/17 07:25 Hgb 11.0 g/dL (12.0-16.0) L 06/16/17 07:25 Hct 34.8 % (36.0-48.0) L 06/16/17 07:25 MCV 90.6 fl (80.0-105.0) 06/16/17 07:25 MCH 28.6 pg (25.0-35.0) 06/16/17 07:25 MCHC 31.6 g/dl (31.0-37.0) 06/16/17 07:25 RDW 14.4 % (11.5-14.5) 06/16/17 07:25 Plt Count 211 10^3/uL (120.0-450.0) 06/16/17 07:25 MPV 9.9 fl (7.0-11.0) 06/16/17 07:25 Gran % 54.8 % (50.0-68.0) 06/16/17 07:25 Lymph % (Auto) 34.1 % (22.0-35.0) 06/16/17 07:25 [place] % (Auto) 7.6 % (1.0-6.0) H 06/16/17 07:25 Eos % (Auto) 3.2 % (1.5-5.0) 06/16/17 07:25 Baso % (Auto) 0.3 % (0.0-3.0) 06/16/17 07:25 Gran # 3.82 (1.4-6.5) 06/16/17 07:25 Lymph # 2.4 (1.2-3.4) 06/16/17 07:25 [place] # 0.5 (0.1-0.6) 06/16/17 07:25 Eos # 0.2 (0.0-0.7) 06/16/17 07:25 Baso # 0.02 K/mm3 (0.0-2.0) 06/16/17 07:25 PT 13.7 Seconds (9.9-11.8) H 06/12/17 19:50 INR 1.27 (0.93-1.08) H 06/12/17 19:50 APTT 25.6 Seconds (23.7-30.8) 06/12/17 19:50 Sodium 144 mmol/L (132-148) 06/16/17 07:25 Potassium 4.3 mmol/L (3.6-5.0) 06/16/17 07:25 Chloride 107 mmol/L (98-107) 06/16/17 07:25 Carbon Dioxide 30 mmol/L (21-33) 06/16/17 07:25 Anion Gap 11 (10-20) 06/16/17 07:25 BUN 19 mg/dL (7-21) 06/16/17 07:25 Creatinine 0.8 mg/dL (0.5-1.4) 06/16/17 07:25 Est GFR ( Amer) > 60 06/16/17 07:25 Est GFR (Non-Af Amer) > 60 06/16/17 07:25 POC Glucose (mg/dL) 241 mg/dL (65-110) H 06/15/17 21:05 Random Glucose 120 mg/dL (70-110) H 06/16/17 07:25 Calcium 8.9 mg/dL (8.4-10.5) 06/16/17 07:25 Magnesium 1.2 mg/dL (1.7-2.2) L 06/12/17 19:50 Total Bilirubin 0.6 mg/dL (0.2-1.3) 06/16/17 07:25 AST 64 U/L (14-36) H D 06/16/17 07:25 ALT 58 U/L (7-56) H 06/16/17 07:25 Alkaline Phosphatase 58 U/L (38-126) 06/16/17 07:25 Lactate Dehydrogenase 484 U/L (333-699) 06/12/17 19:50 Total Creatine Kinase 29 U/L (35-230) L 06/12/17 19:50 Troponin I 0.04 ng/mL D 06/13/17 08:30 NT-Pro-B Natriuret Pep 940 pg/mL (0-450) H 06/12/17 19:50 Total Protein 5.4 g/dL (5.8-8.3) L 06/16/17 07:25 Total Protein (PEP) 5.6 g/dL (6.1-8.1) L 06/14/17 12:15 Albumin 2.9 g/dL (3.0-4.8) L 06/16/17 07:25 Albumin (PEP) 3.1 g/dL (3.8-4.8) L 06/14/17 12:15 Globulin 2.5 gm/dL 06/16/17 07:25 Albumin/Globulin Ratio 1.2 (1.1-1.8) 06/16/17 07:25 Hmtfb-4-Tybsbblzb 0.3 g/dL (0.2-0.3) 06/14/17 12:15 Ddxvt-8-Dhkgkrllx 0.8 g/dL (0.5-0.9) 06/14/17 12:15 Uaar-1-Ytbsrjdi 0.4 g/dL (0.4-0.6) 06/14/17 12:15 Hrxa-8-Iiwnxeyy 0.3 g/dL (0.2-0.5) 06/14/17 12:15 Gamma Globulins 0.8 g/dL (0.8-1.7) 06/14/17 12:15 Abnorm Protein Band 1 TEST NOT PERFORMED 06/14/17 12:15 Abnorm Protein Band 2 TEST NOT PERFORMED 06/14/17 12:15 Abnorm Protein Band 3 TEST NOT PERFORMED 06/14/17 12:15 Triglycerides 112 mg/dL (35-160) 06/13/17 08:30 Cholesterol 134 mg/dL (130-200) 06/13/17 08:30 LDL Cholesterol Direct 65 mg/dL (0-129) 06/13/17 08:30 HDL Cholesterol 44 mg/dL (29-60) 06/13/17 08:30 Urine Color Yellow (YELLOW) 06/12/17 20:50 Urine Appearance Sl cloudy (CLEAR) 06/12/17 20:50 Urine pH 6.0 (4.7-8.0) 06/12/17 20:50 Ur Specific [place] 1.015 (1.005-1.035) 06/12/17 20:50 Urine Protein Negative mg/dL (<30 mg/dL) 06/12/17 20:50 Urine Glucose (UA) Negative mg/dL (NEGATIVE) 06/12/17 20:50 Urine Ketones Negative mg/dL (NEGATIVE) 06/12/17 20:50 Urine Blood Negative (NEGATIVE) 06/12/17 20:50 Urine Nitrate Negative (NEGATIVE) 06/12/17 20:50 Urine Bilirubin Negative (NEGATIVE) 06/12/17 20:50 Urine Urobilinogen 0.2 E.U./dL (<1 E.U./dL) 06/12/17 20:50 Ur Leukocyte Esterase Moderate Farooq/uL (NEGATIVE) H 06/12/17 20:50 Urine RBC Negative /hpf (0-2) 06/12/17 20:50 Urine WBC 15 - 20 /hpf (0-6) 06/12/17 20:50 Ur Epithelial Cells 4 - 5 /hpf (0-5) 06/12/17 20:50 Urine Bacteria Mod (NEG) 06/12/17 20:50 Digoxin 0.7 ng/mL (0.8-2.0) L 06/12/17 23:55 IgG 879.6 mg/dL (700.0-1600.0) 06/14/17 12:15 IgA 254.9 mg/dL (70.0-400.0) 06/14/17 12:15 IgM 68.9 mg/dL (40.0-230.0) 06/14/17 12:15 MAX & SPEP Interp See note 06/14/17 12:15 - Hospital Course Hospital Course: Patient is a 81 yo F with a pmhx of CVA with left-sided weakness, DM2, hypertension, HLD, atrial fibrillation on eliquis, sub pleural lung nodule of the right middle lobe 0.7cm, and chronic constipation who was admitted to the hospital for evaluation and treatment of left sided chest pain. With the use of physical examinations, lab work, and imaging the patient was diagnosed with atypical chest pain. During her hospital stay the patient also noted low back pain. Skeletal survey was ordered and showed lytic lesions, age indeterminate compression deformities in the mid thoracic spine, and L2 vertebral body. Patient was started on gabapentin for pain control. During her hospital stay the patient was seen by fine sander/oncologist, Dr. Irene, who will follow up with the patient in an outpatient setting. Patient is medically stable for discharge to the TCU. Patient understands and appreciates discharge plan. Informed to follow up with PMD and Dr. Irene within 1 week from discharge. Patient instructed to return to the ED for evaluation of fever, chills, chest pain, SOB, abdominal pain, N/V, diarrhea, constipation. Assessment Patient is a 81 yo F with a pmhx of CVA with left-sided weakness, DM2, hypertension, HLD, atrial fibrillation on eliquis, sub pleural lung nodule of the right middle lobe 0.7cm, and chronic constipation who was admitted to the hospital for evaluation and treatment of left sided chest pain. Plan Acute Chest Pain R/O ACS -Serial Troponins- negative, reproducible upon palpation -Chest x-ray from today showed no significant changes as compared to 2 weeks ago -cardiology consulted- continue eliquis, no acs as per cardiology -Echo ordered- LVEF 65.5% outpatient stress test as per cardiology -continue 81mg aspirin and Lipitor Back Pain - skeletal survery ordered- results noted evidence of lytic lesions, age indeterminate compression deformities in the mid thoracic spine and L2 vertebral body - heme/onc stated to follow up outpatient regarding lab work up - start gabapentin 100 mg TID Atypical chest pain - protonix - Motrin PRN for possible MSK pain - rib series - no acute fracture History of Chronic Afib - Continue metoprolol Diabetes controlled (A1C of 6.February) -A1C -hold oral hypoglycemic -insulin sliding scale low UTI -Pyuria with suprapubic tenderness - c/w Ciprofloxacin Patient is medically stable for transfer to TCU. Patient case discussed with and plan approved by attending physician, Dr. Samuels. Discharge Exam - Head Exam Head Exam: ATRAUMATIC, NORMAL INSPECTION - Additional Findings Additional findings: - Head Exam Head Exam: ATRAUMATIC, NORMAL INSPECTION - Eye Exam Eye Exam: EOMI, Normal appearance - ENT Exam ENT Exam: Mucous Membranes Moist - Neck Exam Neck Exam: Normal Inspection. absent: Tenderness - Respiratory Exam Respiratory Exam: Clear to Ausculation Bilateral, NORMAL BREATHING PATTERN - Cardiovascular Exam Cardiovascular Exam: +S1, +S2 - GI/Abdominal Exam GI & Abdominal Exam: Soft. absent: Tenderness - Extremities Exam Extremities Exam: Normal Inspection - Back Exam Back Exam: NORMAL INSPECTION, paraspinal tenderness, tenderness, no step off sign - Neurological Exam Neurological Exam: Alert, Awake, Oriented x 3 - Psychiatric Exam Psychiatric exam: Normal Affect, Normal Mood - Skin Skin Exam: Intact, Normal Color Discharge Plan - Follow Up Plan Condition: GOOD Disposition: REHAB FACILITY/REHAB UNIT Patient education suggested?: Yes Additional Instructions: Follow up with PMD and Dr. Irnee within 1 week from discharge. Return to the ED for evaluation of fever, chills, chest pain, SOB, abdominal pain, N/V, diarrhea, constipation. Take medications as prescribed. Referrals: Elia Samuels MD [Primary Care Provider] -
--- NOTE | 2017-06-16 14:22 | CP.PCM.PN ---
Subjective - Date & Time of Evaluation Date of Evaluation: 06/16/17 Time of Evaluation: 07:45 - Subjective Subjective: Patient seen and examined at bedside. States that she had difficulty sleeping due to uncomfortable bed. Will try sleeping in recliner. Patient states left lateral rib pain has improved since admission. Low right back pain is still at baseline. Offers no new complaints at this time. Denies f/c/cp/sob/abd pain/n/v/ diarrhea/constipation/urinary symptoms. Objective - Vital Signs/Intake and Output Vital Signs (last 24 hours): Temp Pulse Resp BP Pulse Ox 97.7 F 74 18 144/87 98 06/16/17 08:17 06/16/17 08:17 06/16/17 08:17 06/16/17 08:17 06/16/17 08:17 - Medications Medications: Current Medications Apixaban (Eliquis) 2.5 mg PO BID [facility] PRN Reason: Protocol Last Admin: 06/16/17 09:51 Dose: 2.5 mg Aspirin (Ecotrin) 81 mg PO DAILY [facility] Last Admin: 06/16/17 09:51 Dose: 81 mg Atorvastatin Calcium (Lipitor) 20 mg PO DAILY [facility] Last Admin: 06/16/17 09:52 Dose: 20 mg Docusate Sodium (Colace) 100 mg PO BID [facility] Last Admin: 06/16/17 09:51 Dose: 100 mg Gabapentin (Neurontin) 100 mg PO TID [facility] PRN Reason: Protocol Last Admin: 06/16/17 09:52 Dose: 100 mg Sodium Chloride (Sodium Chloride 0.9%) 1,000 mls @ 100 mls/hr IV .Q10H [facility] Last Admin: 06/16/17 03:53 Dose: 100 mls/hr Ibuprofen (Motrin Tab) 400 mg PO Q6H PRN PRN Reason: Pain, Mild (1-3) Last Admin: 06/13/17 09:39 Dose: 400 mg Insulin Human Lispro (Humalog Low) 0 units SC ACHS [facility] PRN Reason: Protocol Last Admin: 06/16/17 12:13 Dose: 1 units Magnesium Oxide (Mag-Ox) 400 mg PO BID [facility] Last Admin: 06/16/17 09:52 Dose: 400 mg Metoprolol Tartrate (Lopressor) 25 mg PO BID [facility] Last Admin: 06/16/17 09:52 Dose: 25 mg Pantoprazole Sodium (Protonix Ec Tab) 40 mg PO 0600 [facility] Last Admin: 06/16/17 06:13 Dose: 40 mg - Labs Labs: 06/16/17 07:25 06/16/17 07:25 PT 13.7 Seconds (9.9-11.8) H 06/12/17 19:50 INR 1.27 (0.93-1.08) H 06/12/17 19:50 APTT 25.6 Seconds (23.7-30.8) 06/12/17 19:50 - Additional Findings Additional findings: - Head Exam Head Exam: ATRAUMATIC, NORMAL INSPECTION - Eye Exam Eye Exam: EOMI, Normal appearance - ENT Exam ENT Exam: Mucous Membranes Moist - Neck Exam Neck Exam: Normal Inspection. absent: Tenderness - Respiratory Exam Respiratory Exam: Chest Wall Tenderness, Clear to Ausculation Bilateral, NORMAL BREATHING PATTERN - Cardiovascular Exam Cardiovascular Exam: +S1, +S2 - GI/Abdominal Exam GI & Abdominal Exam: Soft. absent: Tenderness - Extremities Exam Extremities Exam: Normal Inspection - Back Exam Back Exam: NORMAL INSPECTION, paraspinal tenderness, tenderness, no step off sign - Neurological Exam Neurological Exam: Alert, Awake, Oriented x 3 - Psychiatric Exam Psychiatric exam: Normal Affect, Normal Mood - Skin Skin Exam: Intact, Normal Color Assessment and Plan (1) Lytic lesion of bone on x-ray Status: Acute (2) Hypertension Status: Chronic (3) Chest pain Status: Chronic (4) Paroxysmal atrial fibrillation Status: Chronic (5) UTI (urinary tract infection) Status: Acute (6) CVA (cerebrovascular accident) Status: Chronic - Assessment and Plan (Free Text) Assessment: Assessment Patient is a81 yo F with a pmhx of CVA with left-sided weakness, DM2, hypertension, HLD, atrial fibrillation on eliquis, sub pleural lung nodule of the right middle lobe 0.7cm, and chronic constipation who was admitted to the hospital for evaluation and treatment of left sided chest pain. Plan Acute Chest Pain R/O ACS -Serial Troponins- negative -Chest x-ray from today showed no significant changes as compared to 2 weeks ago , pending official read -cardiology consulted- continue eliquis, no acs as per cardiology -Echo ordered- LVEF 65.5% outpatient stress test as per cardiology -continue 81mg aspirin and Lipitor Back Pain - skeletal survery ordered- results noted evidence of lytic lesions, age indeterminate compression deformities in the mid thoracic spine and L2 vertebral body - heme/onc stated to follow up outpatient regarding lab work up - start gabapentin 100 mg TID, monitor for pain control, see how she tolerates new medication and d/c to TCU tmr - IR consulted- no acute intevention at this time regarding Vertebroplasty and kyphoplasty Atypical chest pain - protonix - Motrin PRN for possible MSK pain - rib series - no acute fracture History of Chronic Afib - Continue metoprolol Diabetes controlled (A1C of 6.February) -A1C -hold oral hypoglycemic -insulin sliding scale low UTI -Pyuria with suprapubic tenderness - c/w Ciprofloxacin patient case discussed with and plan approved by attending physician, Dr. Samuels.
[2017-06-16 20:46] VITALS: TEMP 97.5
[2017-06-17] MEDS: Pantoprazole 40 mg EC Tab PO SCH (05:21)
[2017-06-17 07:46] LABS: BASO # 0.01 K/mm3 (0.0-2.0); BASO % 0.1 % (0.0-3.0); EOS # 0.2 (0.0-0.7); EOS % 2.6 % (1.5-5.0); GRAN # 3.99 (1.4-6.5); GRAN % 57.3 % (50.0-68.0); HEMATOCRIT 36.6 % (36.0-48.0); LYMPH # 2.3 (1.2-3.4); LYMPH % 32.4 % (22.0-35.0); MEAN CELL VOLUME 90.8 fl (80.0-105.0); MEAN PLATELET VOLUME 9.9 fl (7.0-11.0); MONO # 0.5 (0.1-0.6); MONO % 7.6 % (1.0-6.0); RED CELL DISTRIBUTION WIDTH 14.5 % (11.5-14.5)
[2017-06-17 08:24] LABS: ALB/GLOB RATIO 1.1 (1.1-1.8); ALKALINE PHOSPHATASE 64 U/L (38-126); ALT/SGPT 72 U/L (7-56); AST/SGOT 105 U/L (14-36); BILIRUBIN,TOTAL 0.6 mg/dL (0.2-1.3); BLOOD UREA NITROGEN 22 mg/dL (7-21); CALCIUM 8.9 mg/dL (8.4-10.5); CARBON DIOXIDE 24 mmol/L (21-33); CHLORIDE 108 mmol/L (98-107); GFR AFRICAN-AMERICAN > 60; GLUCOSE,RANDOM 126 mg/dL (70-110); POTASSIUM 4.6 mmol/L (3.6-5.0); SODIUM 141 mmol/L (132-148); TOTAL PROTEIN 5.9 g/dL (5.8-8.3)
[2017-06-17 08:42] VITALS: BP 163/99; PULSE 63; RESP 22; O2SAT 98
[2017-06-17] MEDS: Sodium Chloride 0.9% 1,000 ML IV SCH ×2 (10:41→10:44)
[2017-06-17] MEDS: Magnesium Oxide 400 mg Tab UD PO SCH (10:43)
--- NOTE | 2017-06-17 12:07 | CP.PCM.DIS ---
Provider - Provider Date of Admission: 06/14/17 10:23 Attending physician: Elia Samuels MD Primary care physician: Elia Samuels MD Time Spent in preparation of Discharge (in minutes): 30 Diagnosis - Discharge Diagnosis (1) Lytic lesion of bone on x-ray Status: Acute Priority: High (2) Hypertension Status: Chronic Priority: Medium (3) Chest pain Status: Chronic Priority: Medium (4) Paroxysmal atrial fibrillation Status: Chronic Priority: Medium (5) UTI (urinary tract infection) Status: Acute Priority: Medium (6) CVA (cerebrovascular accident) Status: Chronic Priority: Medium Hospital Course - Lab Results Lab Results: Most Recent Lab Values WBC 7.0 10^3/ul (4.5-11.0) 06/17/17 07:39 RBC 4.03 10^6/uL (3.5-6.1) 06/17/17 07:39 Hgb 11.7 g/dL (12.0-16.0) L 06/17/17 07:39 Hct 36.6 % (36.0-48.0) 06/17/17 07:39 MCV 90.8 fl (80.0-105.0) 06/17/17 07:39 MCH 29.0 pg (25.0-35.0) 06/17/17 07:39 MCHC 32.0 g/dl (31.0-37.0) 06/17/17 07:39 RDW 14.5 % (11.5-14.5) 06/17/17 07:39 Plt Count 213 10^3/uL (120.0-450.0) 06/17/17 07:39 MPV 9.9 fl (7.0-11.0) 06/17/17 07:39 Gran % 57.3 % (50.0-68.0) 06/17/17 07:39 Lymph % (Auto) 32.4 % (22.0-35.0) 06/17/17 07:39 [place] % (Auto) 7.6 % (1.0-6.0) H 06/17/17 07:39 Eos % (Auto) 2.6 % (1.5-5.0) 06/17/17 07:39 Baso % (Auto) 0.1 % (0.0-3.0) 06/17/17 07:39 Gran # 3.99 (1.4-6.5) 06/17/17 07:39 Lymph # 2.3 (1.2-3.4) 06/17/17 07:39 [place] # 0.5 (0.1-0.6) 06/17/17 07:39 Eos # 0.2 (0.0-0.7) 06/17/17 07:39 Baso # 0.01 K/mm3 (0.0-2.0) 06/17/17 07:39 PT 13.7 Seconds (9.9-11.8) H 06/12/17 19:50 INR 1.27 (0.93-1.08) H 06/12/17 19:50 APTT 25.6 Seconds (23.7-30.8) 06/12/17 19:50 Sodium 141 mmol/L (132-148) 06/17/17 07:39 Potassium 4.6 mmol/L (3.6-5.0) 06/17/17 07:39 Chloride 108 mmol/L (98-107) H 06/17/17 07:39 Carbon Dioxide 24 mmol/L (21-33) 06/17/17 07:39 Anion Gap 14 (10-20) 06/17/17 07:39 BUN 22 mg/dL (7-21) H 06/17/17 07:39 Creatinine 0.7 mg/dL (0.5-1.4) 06/17/17 07:39 Est GFR ( Amer) > 60 06/17/17 07:39 Est GFR (Non-Af Amer) > 60 06/17/17 07:39 POC Glucose (mg/dL) 191 mg/dL (65-110) H 06/16/17 21:31 Random Glucose 126 mg/dL (70-110) H 06/17/17 07:39 Calcium 8.9 mg/dL (8.4-10.5) 06/17/17 07:39 Magnesium 1.2 mg/dL (1.7-2.2) L 06/12/17 19:50 Total Bilirubin 0.6 mg/dL (0.2-1.3) 06/17/17 07:39 AST 105 U/L (14-36) H D 06/17/17 07:39 ALT 72 U/L (7-56) H 06/17/17 07:39 Alkaline Phosphatase 64 U/L (38-126) 06/17/17 07:39 Lactate Dehydrogenase 484 U/L (333-699) 06/12/17 19:50 Total Creatine Kinase 29 U/L (35-230) L 06/12/17 19:50 Troponin I 0.04 ng/mL D 06/13/17 08:30 NT-Pro-B Natriuret Pep 940 pg/mL (0-450) H 06/12/17 19:50 Total Protein 5.9 g/dL (5.8-8.3) 06/17/17 07:39 Total Protein (PEP) 5.6 g/dL (6.1-8.1) L 06/14/17 12:15 Albumin 3.1 g/dL (3.0-4.8) 06/17/17 07:39 Albumin (PEP) 3.1 g/dL (3.8-4.8) L 06/14/17 12:15 Globulin 2.7 gm/dL 06/17/17 07:39 Albumin/Globulin Ratio 1.1 (1.1-1.8) 06/17/17 07:39 Uwaqt-1-Uuyatwpsx 0.3 g/dL (0.2-0.3) 06/14/17 12:15 Hijvt-5-Iyjrymgxa 0.8 g/dL (0.5-0.9) 06/14/17 12:15 Mwgh-9-Tubpbziq 0.4 g/dL (0.4-0.6) 06/14/17 12:15 Zppk-1-Pimurikf 0.3 g/dL (0.2-0.5) 06/14/17 12:15 Gamma Globulins 0.8 g/dL (0.8-1.7) 06/14/17 12:15 Abnorm Protein Band 1 TEST NOT PERFORMED 06/14/17 12:15 Abnorm Protein Band 2 TEST NOT PERFORMED 06/14/17 12:15 Abnorm Protein Band 3 TEST NOT PERFORMED 06/14/17 12:15 Triglycerides 112 mg/dL (35-160) 06/13/17 08:30 Cholesterol 134 mg/dL (130-200) 06/13/17 08:30 LDL Cholesterol Direct 65 mg/dL (0-129) 06/13/17 08:30 HDL Cholesterol 44 mg/dL (29-60) 06/13/17 08:30 Urine Color Yellow (YELLOW) 06/12/17 20:50 Urine Appearance Sl cloudy (CLEAR) 06/12/17 20:50 Urine pH 6.0 (4.7-8.0) 06/12/17 20:50 Ur Specific Ranger 1.015 (1.005-1.035) 06/12/17 20:50 Urine Protein Negative mg/dL (<30 mg/dL) 06/12/17 20:50 Urine Glucose (UA) Negative mg/dL (NEGATIVE) 06/12/17 20:50 Urine Ketones Negative mg/dL (NEGATIVE) 06/12/17 20:50 Urine Blood Negative (NEGATIVE) 06/12/17 20:50 Urine Nitrate Negative (NEGATIVE) 06/12/17 20:50 Urine Bilirubin Negative (NEGATIVE) 06/12/17 20:50 Urine Urobilinogen 0.2 E.U./dL (<1 E.U./dL) 06/12/17 20:50 Ur Leukocyte Esterase Moderate Farooq/uL (NEGATIVE) H 06/12/17 20:50 Urine RBC Negative /hpf (0-2) 06/12/17 20:50 Urine WBC 15 - 20 /hpf (0-6) 06/12/17 20:50 Ur Epithelial Cells 4 - 5 /hpf (0-5) 06/12/17 20:50 Urine Bacteria Mod (NEG) 06/12/17 20:50 Digoxin 0.7 ng/mL (0.8-2.0) L 06/12/17 23:55 IgG 879.6 mg/dL (700.0-1600.0) 06/14/17 12:15 IgA 254.9 mg/dL (70.0-400.0) 06/14/17 12:15 IgM 68.9 mg/dL (40.0-230.0) 06/14/17 12:15 MAX & SPEP Interp See note 06/14/17 12:15 - Hospital Course Hospital Course: Patient is a 81 yo F with a pmhx of CVA with left-sided weakness, DM2, hypertension, HLD, atrial fibrillation on eliquis, sub pleural lung nodule of the right middle lobe 0.7cm, and chronic constipation who was admitted to the hospital for evaluation and treatment of left sided chest pain. With the use of physical examinations, lab work, and imaging the patient was diagnosed with atypical chest pain. During her hospital stay the patient also noted low back pain. Skeletal survey was ordered and showed lytic lesions, age indeterminate compression deformities in the mid thoracic spine, and L2 vertebral body. Patient was started on gabapentin for pain control. During her hospital stay the patient was seen by fiber glass worker/oncologist, Dr. Irene, who will follow up with the patient in an outpatient setting. Patient is medically stable for discharge to the TCU. Patient understands and appreciates discharge plan. Informed to follow up with PMD, Dr. Cedillo cardiology, and Dr. Irene within 1 week from discharge. Patient instructed to return to the ED for evaluation of fever, chills, chest pain, SOB, abdominal pain, N/V, diarrhea, constipation. Assessment Patient is a 81 yo F with a pmhx of CVA with left-sided weakness, DM2, hypertension, HLD, atrial fibrillation on eliquis, sub pleural lung nodule of the right middle lobe 0.7cm, and chronic constipation who was admitted to the hospital for evaluation and treatment of left sided chest pain. Plan Acute Chest Pain R/O ACS -Serial Troponins- negative, reproducible upon palpation -Chest x-ray from today showed no significant changes as compared to 2 weeks ago -cardiology consulted- continue eliquis, no acs as per cardiology -Echo ordered- LVEF 65.5% outpatient stress test as per cardiology -continue 81mg aspirin and Lipitor Back Pain - skeletal survery ordered- results noted evidence of lytic lesions, age indeterminate compression deformities in the mid thoracic spine and L2 vertebral body - heme/onc stated to follow up outpatient regarding lab work up - start gabapentin 100 mg TID Atypical chest pain - protonix - Motrin PRN for possible MSK pain - rib series - no acute fracture History of Chronic Afib - Continue metoprolol Diabetes controlled (A1C of 6.February) -A1C -hold oral hypoglycemic -insulin sliding scale low UTI -Pyuria with suprapubic tenderness - c/w Ciprofloxacin Patient is medically stable for transfer to TCU. Patient case discussed with and plan approved by attending physician, Dr. Shepherd. Discharge Exam - Head Exam Head Exam: ATRAUMATIC, NORMAL INSPECTION Discharge Plan - Follow Up Plan Condition: GOOD Disposition: REHAB FACILITY/REHAB UNIT Instructions: Chest Pain (DC), Chest Pain (GEN), Urinary Tract Infection in Women (DC), Dysuria (GEN), Hypertension (DC), Hypertension (GEN) Additional Instructions: Follow up with PMD Dr. Samuels and Oncologist, Dr. Irene, within 1 week from discharge. Return to the ED for evaluation of fever, chills, chest pain, SOB, abdominal pain, N/V, diarrhea, constipation. Take medications as prescribed. Referrals: Elia Samuels MD [Primary Care Provider] -
== END 2017-06-17 14:28 | DRG 313 ==
LOC: ED 19:36 → ERH 21:27 → 2RNO 23:24 → OBSVTOIN 06-14 10:23 → 5RSO 06-15 23:42
PROVIDERS: ADMIT Internal Medicine; ATTEND Internal Medicine
DX: R07.89 Other chest pain (principal); N17.9 Acute kidney failure, unspecified; I69.354 Hemiplegia and hemiparesis following cerebral infarction affecting left non-dominant side; N39.0 Urinary tract infection, site not specified; I48.0 Paroxysmal atrial fibrillation; I10 Essential (primary) hypertension; E78.5 Hyperlipidemia, unspecified; R91.1 Solitary pulmonary nodule; K59.09 Other constipation; I48.2 Chronic atrial fibrillation; E78.00 Pure hypercholesterolemia, unspecified; M89.9 Disorder of bone, unspecified; I34.0 Nonrheumatic mitral (valve) insufficiency; E11.9 Type 2 diabetes mellitus without complications; Z79.84 Long term (current) use of oral hypoglycemic drugs; Z79.82 Long term (current) use of aspirin

== ENCOUNTER 2017-06-17 14:31 | Inpatient (IN) | payer OTHER, MEDICARE ==
[2017-06-17] MEDS: Sodium Chloride 0.9% 1,000 ML IV SCH (16:10)
[2017-06-17 16:50] VITALS: BMI 21.9
[2017-06-17] MEDS: Magnesium Oxide 400 mg Tab UD PO SCH (17:30)
[2017-06-17] MEDS: Insulin Lispro (humaLOG) LOW Coverage SC SCH ×2 (17:32→22:13)
[2017-06-18] MEDS: Sodium Chloride 0.9% 1,000 ML IV SCH ×2 (05:41→17:15)
[2017-06-18] MEDS: Pantoprazole 40 mg EC Tab PO SCH (05:50)
[2017-06-18] MEDS: Insulin Lispro (humaLOG) LOW Coverage SC SCH ×4 (07:00→21:54)
[2017-06-18 07:48] LABS: HEMATOCRIT 33.9 % (36.0-48.0); MEAN CELL VOLUME 90.4 fl (80.0-105.0); MEAN CORPUSCULAR HEMOGLOBIN 29.6 pg (25.0-35.0); MEAN CORPUSCULAR HGB CONC 32.7 g/dl (31.0-37.0); MEAN PLATELET VOLUME 9.6 fl (7.0-11.0); RED CELL DISTRIBUTION WIDTH 14.5 % (11.5-14.5); WHITE BLOOD COUNT 6.7 10^3/ul (4.5-11.0)
[2017-06-18 08:00] LABS: ALKALINE PHOSPHATASE 61 U/L (38-126); ALT/SGPT 72 U/L (7-56); AST/SGOT 62 U/L (14-36); BILIRUBIN,TOTAL 0.7 mg/dL (0.2-1.3); BLOOD UREA NITROGEN 20 mg/dL (7-21); CALCIUM 9.4 mg/dL (8.4-10.5); CARBON DIOXIDE 30 mmol/L (21-33); CHLORIDE 105 mmol/L (95-110); GFR AFRICAN-AMERICAN > 60; GLUCOSE,RANDOM 120 mg/dL (70-110); POTASSIUM 4.3 mmol/L (3.6-5.0); SODIUM 142 mmol/L (132-148); TOTAL PROTEIN 5.7 g/dL (5.8-8.3)
[2017-06-18] MEDS: Magnesium Oxide 400 mg Tab UD PO SCH ×2 (09:24→17:12)
[2017-06-18 09:40] LABS: MAGNESIUM 1.6 mg/dL (1.7-2.2); PHOSPHOROUS 4.4 mg/dL (2.5-4.5)
--- NOTE | 2017-06-18 09:54 | CP.PCM.HP ---
History of Present Illness - History of Present Illness History of Present Illness: 81 F with a PMHx of CVA with left-sided weakness, DM2, hypertension, HLD, atrial fibrillation on eliquis, sub pleural lung nodule of the right middle lobe 0.7cm, and chronic constipation who was admitted to the hospital for evaluation and treatment of left sided chest pain. With the use of physical examinations, lab work, and imaging the patient was diagnosed with atypical chest pain. During her hospital stay the patient also noted low back pain. Skeletal survey was ordered and showed lytic lesions, age indeterminate compression deformities in the mid thoracic spine, and L2 vertebral body. Patient was started on gabapentin for pain control. During her hospital stay the patient was seen by health teacher/oncologist, Dr. Irene, who will follow up with the patient in an outpatient setting. Patient was medically stable for discharge to the TCU. Pt was seen and examined at bedside. Pt was resting comfortably with minor complaints of back pain. Pt has been eating well, and moving her bowels and bladder regularly. Pt denied fever, chills, sob, chest pains, abdominal pains, n /v/d/c or urinary symptoms at this time. No acute or adverse events overnight as per nursing staff. Pt is tolerating PT well. Present on Admission - Present on Admission Any Indicators Present on Admission: No Review of Systems - Review of Systems Review of Systems: As per HPI otherwise Negative Past Patient History - Infectious Disease Hx of Infectious Diseases: None - Past Social History Smoking Status: Never Smoked - CARDIAC Hx Cardiac Disorders: Yes Hx Hypertension: Yes - PULMONARY Hx Respiratory Disorders: No - NEUROLOGICAL HX Cerebrovascular Accident: Yes - HEENT Hx HEENT Problems: No - RENAL Hx Chronic Kidney Disease: No - ENDOCRINE/METABOLIC Hx Diabetes Mellitus Type 2: Yes - HEMATOLOGICAL/ONCOLOGICAL Hx Blood Disorders: No - INTEGUMENTARY Hx Dermatological Problems: No - MUSCULOSKELETAL/RHEUMATOLOGICAL Hx Arthritis: Yes - GASTROINTESTINAL Hx Gastrointestinal Disorders: No - GENITOURINARY/GYNECOLOGICAL Hx Reproductive Disorders: No - PSYCHIATRIC Hx Psychophysiologic Disorder: No Hx Substance Use: No - SURGICAL HISTORY Hx Orthopedic Surgery: Yes Other/Comment: right wrist x10 years ago, bunionectomy - ANESTHESIA Hx Anesthesia Reactions: (UNK) Hx Malignant Hyperthermia: (UNK) Meds Allergies/Adverse Reactions: Allergies Allergy/AdvReac Type Severity Reaction Status Date / Time shellfish derived Allergy ITCHING Verified 06/17/17 10:14 Physical Exam - Constitutional Appears: No Acute Distress - Head Exam Head Exam: ATRAUMATIC, NORMAL INSPECTION, NORMOCEPHALIC - Eye Exam Eye Exam: EOMI, Normal appearance, PERRL Pupil Exam: NORMAL ACCOMODATION, PERRL - ENT Exam ENT Exam: Mucous Membranes Moist, Normal Exam - Neck Exam Neck exam: Positive for: Normal Inspection - Respiratory Exam Respiratory Exam: Chest Wall Tenderness, Clear to Auscultation Bilateral, NORMAL BREATHING PATTERN - Cardiovascular Exam Cardiovascular Exam: REGULAR RHYTHM, +S1, +S2 - GI/Abdominal Exam GI & Abdominal Exam: Normal Bowel Sounds, Soft. absent: Tenderness - Extremities Exam Extremities exam: Positive for: normal inspection - Back Exam Back exam: NORMAL INSPECTION, vertebral tenderness - Neurological Exam Neurological exam: Alert, CN II-XII Intact, Normal Gait, Oriented x3, Reflexes Normal - Psychiatric Exam Psychiatric exam: Normal Affect, Normal Mood - Skin Skin Exam: Dry, Intact, Normal Color, Warm Results - Vital Signs Recent Vital Signs: Last Vital Signs Temp 98.5 F 06/18/17 06:32 Pulse 67 06/18/17 09:23 Resp 12 06/17/17 16:30 BP 137/84 06/18/17 09:23 Pulse Ox 18 L 06/18/17 06:32 - Labs Result Diagrams: 06/18/17 07:30 06/18/17 07:30 Labs: Laboratory Results - last 24 hr 06/18/17 06/18/17 06/18/17 04:54 07:30 07:30 WBC 6.7 RBC 3.75 Hgb 11.1 L Hct 33.9 L MCV 90.4 MCH 29.6 MCHC 32.7 RDW 14.5 Plt Count 218 MPV 9.6 Sodium 142 Potassium 4.3 Chloride 105 Carbon Dioxide 30 Anion Gap 11 BUN 20 Creatinine 0.8 Est GFR ( Amer) > 60 Est GFR (Non-Af Amer) > 60 POC Glucose (mg/dL) 147 H Random Glucose 120 H Calcium 9.4 Total Bilirubin 0.7 AST 62 H D ALT 72 H Alkaline Phosphatase 61 Total Protein 5.7 L Albumin 2.9 L Globulin 2.8 Albumin/Globulin Ratio 1.0 L Assessment & Plan - Assessment and Plan (Free Text) Assessment: 81 F with a PMHx of CVA with residual left-sided weakness, DM2, hypertension, HLD, atrial fibrillation on eliquis, sub-pleural lung nodule of the right middle lobe 0.7cm, and chronic constipation initially admitted for evaluation and treatment of left sided chest pain. Pt found to have old rib fx on xray and on bone survey; lytic lesions. Pt was transferred to TCU for further rehab for strength and conditioning. Acute Chest Pain R/O ACS -Serial Troponins- negative, reproducible upon palpation, Old rib fx of left 6th and 7th rib -Chest x-ray from today showed no significant changes as compared to 2 weeks ago -cardiology consulted- continue eliquis, no acs as per cardiology -Echo ordered- LVEF 65.5% outpatient stress test as per cardiology -continue 81mg aspirin and Lipitor Back Pain - skeletal survery ordered- results noted evidence of lytic lesions, age indeterminate compression deformities in the mid thoracic spine and L2 vertebral body - heme/onc stated to follow up outpatient regarding lab work up - start gabapentin 100 mg TID, will increase to 200mg TID Atypical chest pain - protonix - Motrin PRN for possible MSK pain - rib series - no acute fracture History of Chronic Afib - Continue metoprolol Diabetes controlled (A1C of 6.February) -A1C -hold oral hypoglycemic -insulin sliding scale low UTI -Pyuria with suprapubic tenderness - c/w Ciprofloxacin Seen reviewed and discussed with attending
[2017-06-19] MEDS: Sodium Chloride 0.9% 1,000 ML IV SCH ×2 (02:48→17:10)
[2017-06-19] MEDS: Pantoprazole 40 mg EC Tab PO SCH (05:39)
[2017-06-19] MEDS: Insulin Lispro (humaLOG) LOW Coverage SC SCH ×4 (06:49→22:17)
[2017-06-19 08:02] LABS: HEMATOCRIT 34.2 % (36.0-48.0); MEAN CELL VOLUME 90.5 fl (80.0-105.0); MEAN CORPUSCULAR HEMOGLOBIN 29.6 pg (25.0-35.0); MEAN CORPUSCULAR HGB CONC 32.7 g/dl (31.0-37.0); MEAN PLATELET VOLUME 9.9 fl (7.0-11.0); RED CELL DISTRIBUTION WIDTH 14.5 % (11.5-14.5); WHITE BLOOD COUNT 6.2 10^3/ul (4.5-11.0)
[2017-06-19] MEDS: Magnesium Oxide 400 mg Tab UD PO SCH ×2 (09:00→17:13)
[2017-06-19 09:15] LABS: ALB/GLOB RATIO 1.1 (1.1-1.8); ALKALINE PHOSPHATASE 72 U/L (38-126); ALT/SGPT 88 U/L (7-56); AST/SGOT 84 U/L (14-36); BILIRUBIN,TOTAL 0.5 mg/dL (0.2-1.3); BLOOD UREA NITROGEN 22 mg/dL (7-21); CALCIUM 9.1 mg/dL (8.4-10.5); CARBON DIOXIDE 32 mmol/L (21-33); CHLORIDE 106 mmol/L (98-107); GFR AFRICAN-AMERICAN > 60; GLUCOSE,RANDOM 115 mg/dL (70-110); MAGNESIUM 1.6 mg/dL (1.7-2.2); PHOSPHOROUS 4.6 mg/dL (2.5-4.5); POTASSIUM 4.7 mmol/L (3.6-5.0); SODIUM 143 mmol/L (132-148); TOTAL PROTEIN 5.5 g/dL (5.8-8.3)
[2017-06-20] MEDS: Sodium Chloride 0.9% 1,000 ML IV SCH ×3 (02:06→23:08)
[2017-06-20] MEDS: Pantoprazole 40 mg EC Tab PO SCH (05:51)
[2017-06-20] MEDS: Insulin Lispro (humaLOG) LOW Coverage SC SCH ×4 (06:47→22:31)
[2017-06-20 07:05] LABS: MEAN CELL VOLUME 90.4 fl (80.0-105.0); MEAN CORPUSCULAR HEMOGLOBIN 29.2 pg (25.0-35.0); MEAN CORPUSCULAR HGB CONC 32.3 g/dl (31.0-37.0); MEAN PLATELET VOLUME 9.9 fl (7.0-11.0); RED CELL DISTRIBUTION WIDTH 14.7 % (11.5-14.5); WHITE BLOOD COUNT 7.1 10^3/ul (4.5-11.0)
[2017-06-20 07:33] LABS: ALB/GLOB RATIO 1.1 (1.1-1.8); ALKALINE PHOSPHATASE 72 U/L (38-126); ALT/SGPT 84 U/L (7-56); AST/SGOT 84 U/L (14-36); BILIRUBIN,TOTAL 0.5 mg/dL (0.2-1.3); BLOOD UREA NITROGEN 23 mg/dL (7-21); CARBON DIOXIDE 29 mmol/L (21-33); CHLORIDE 106 mmol/L (98-107); GFR AFRICAN-AMERICAN > 60; GLUCOSE,RANDOM 101 mg/dL (70-110); MAGNESIUM 1.5 mg/dL (1.7-2.2); PHOSPHOROUS 4.7 mg/dL (2.5-4.5); POTASSIUM 4.5 mmol/L (3.6-5.0); SODIUM 143 mmol/L (132-148); TOTAL PROTEIN 5.8 g/dL (5.8-8.3)
[2017-06-20] MEDS: Magnesium Oxide 400 mg Tab UD PO SCH ×2 (10:20→17:37)
--- NOTE | 2017-06-20 12:33 | CP.PCM.PN ---
Subjective - Date & Time of Evaluation Date of Evaluation: 06/20/17 Time of Evaluation: 06:30 - Subjective Subjective: 81 F with a PMHx of CVA with left-sided weakness, DM2, hypertension, HLD, atrial fibrillation on eliquis, sub pleural lung nodule of the right middle lobe 0.7cm, and chronic constipation who was admitted to the hospital for evaluation and treatment of left sided chest pain. With the use of physical examinations, lab work, and imaging the patient was diagnosed with atypical chest pain. During her hospital stay the patient also noted low back pain. Skeletal survey was ordered and showed lytic lesions, age indeterminate compression deformities in the mid thoracic spine, and L2 vertebral body. Patient was started on gabapentin for pain control. During her hospital stay the patient was seen by manufacturing executive/oncologist, Dr. Irene, who will follow up with the patient in an outpatient setting. Patient was medically stable for discharge to the TCU. Pt was seen and examined while sitting in the chair. Pt stated she was comfortable, but still had some back pain on the right side. She sated she has been eating will and going to the bathroom normally and regularly. In addition, patient stated she had right hip pain but she did not want to take any pain killer. Pt. denied fever, chills, sob, chest pains, abdominal pains, n/v/d/c or urinary symptoms at this time. Objective - Vital Signs/Intake and Output Vital Signs (last 24 hours): Temp Pulse Resp BP Pulse Ox 97.9 F 73 12 101/80 100 06/20/17 10:00 06/20/17 10:00 06/20/17 10:00 06/20/17 10:00 06/20/17 10:00 - Medications Medications: Current Medications Apixaban (Eliquis) 2.5 mg PO BID [facility] PRN Reason: Protocol Last Admin: 06/20/17 10:20 Dose: 2.5 mg Aspirin (Ecotrin) 81 mg PO 0800 [facility] PRN Reason: Protocol Last Admin: 06/20/17 10:20 Dose: 81 mg Atorvastatin Calcium (Lipitor) 20 mg PO DIN [facility] PRN Reason: Protocol Last Admin: 06/19/17 17:12 Dose: 20 mg Docusate Sodium (Colace) 100 mg PO BID [facility] PRN Reason: Protocol Last Admin: 06/20/17 10:20 Dose: 100 mg Gabapentin (Neurontin) 200 mg PO TID [facility] PRN Reason: Protocol Last Admin: 06/20/17 10:20 Dose: 200 mg Sodium Chloride (Sodium Chloride 0.9%) 1,000 mls @ 100 mls/hr IV .Q10H [facility] PRN Reason: Protocol Last Admin: 06/20/17 02:06 Dose: 100 mls/hr Ibuprofen (Motrin Tab) 400 mg PO Q6H PRN; Protocol PRN Reason: Pain, Mild (1-3) Insulin Human Lispro (Humalog Low) 0 units SC ACHS [facility] PRN Reason: Protocol Last Admin: 06/20/17 12:05 Dose: Not Given Magnesium Oxide (Mag-Ox) 400 mg PO BID [facility] PRN Reason: Protocol Last Admin: 06/20/17 10:20 Dose: 400 mg Metoprolol Tartrate (Lopressor) 25 mg PO 0800,1800 [facility] PRN Reason: Protocol Last Admin: 06/20/17 08:00 Dose: Not Given Pantoprazole Sodium (Protonix Ec Tab) 40 mg PO 0600 [facility] PRN Reason: Protocol Last Admin: 06/20/17 05:51 Dose: 40 mg - Labs Labs: 06/20/17 06:56 06/20/17 06:56 - Constitutional Appears: Non-toxic, No Acute Distress - Head Exam Head Exam: ATRAUMATIC, NORMAL INSPECTION, NORMOCEPHALIC - Eye Exam Eye Exam: EOMI, Normal appearance, PERRL Pupil Exam: NORMAL ACCOMODATION, PERRL - ENT Exam ENT Exam: Mucous Membranes Moist, Normal Exam - Respiratory Exam Respiratory Exam: Chest Wall Tenderness, NORMAL BREATHING PATTERN Additional comments: slight chest wall tenderness - Cardiovascular Exam Cardiovascular Exam: REGULAR RHYTHM, +S1, +S2. absent: Murmur - GI/Abdominal Exam GI & Abdominal Exam: Normal Bowel Sounds - Extremities Exam Extremities Exam: Normal Inspection - Back Exam Back Exam: tenderness Additional comments: tendereness in the right lower back right above sacrum - Neurological Exam Neurological Exam: Alert, Awake, Oriented x3 - Psychiatric Exam Psychiatric exam: Normal Affect, Normal Mood - Skin Skin Exam: Dry Assessment and Plan - Assessment and Plan (Free Text) Assessment: 81 F with a PMHx of CVA with residual left-sided weakness, DM2, hypertension, HLD, atrial fibrillation on eliquis, sub-pleural lung nodule of the right middle lobe 0.7cm, and chronic constipation initially admitted for evaluation and treatment of left sided chest pain. Pt found to have old rib fx on xray and on bone survey; lytic lesions. Pt was transferred to TCU for further rehab for strength and conditioning. 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 -Chest x-ray from today showed no significant changes as compared to 2 weeks ago -cardiology consulted- continue eliquis, no acs as per cardiology -Echo ordered- LVEF 65.5% outpatient stress test as per cardiology -continue 81mg aspirin and Lipitor Back Pain - skeletal survery ordered- results noted evidence of lytic lesions, age indeterminate compression deformities in the mid thoracic spine and L2 vertebral body - heme/onc stated to follow up outpatient regarding lab work up - Continue gabapentin TID - still complaining of back pain but improved -Follow up immunoelectrophoresis Atypical chest pain - protonix - Motrin PRN for possible MSK pain - rib series - no acute fracture History of Chronic Afib - Continue metoprolol Diabetes controlled (A1C of 6.February) -A1C -hold oral hypoglycemic -insulin sliding scale low UTI -Pyuria with suprapubic tenderness - Finished Cipro -UA ordered Seen reviewed and discussed with attending Dr. Shepherd
--- NOTE | 2017-06-20 12:51 | PN ---
DATE: 06/20/2017 SUBJECTIVE: The patient is in the ICU without shortness of breath, without chest pain. PHYSICAL EXAMINATION: VITAL SIGNS: Blood pressure is 101/80, the heart rate is in the 70s. NECK: Negative JVD. LUNGS: Without rales. HEART: Revealed S1, S2. EXTREMITIES: Without edema. LABORATORIES: Reveal BUN and creatinine are unremarkable. The hemoglobin is 11.3. IMPRESSION: 1. Resolution of chest pain. 2. Diabetes mellitus. 3. Chronic atrial fibrillation. 4. Hypertension. 5. Hypercholesterolemia. 6. Mild pulmonary hypertension. Given these findings, the patient is participating with physical therapy well. We will continue the Eliquis for her chronic atrial fibrillation. Otilio Cedillo MD
[2017-06-20 20:29] LABS: URINE BILIRUBIN NEGATIVE (NEGATIVE); URINE BLOOD NEGATIVE (NEGATIVE); URINE GLUCOSE (UA) NEGATIVE (NEGATIVE); URINE KETONE NEGATIVE (NEGATIVE); URINE LEUKOCYTE ESTERASE NEGATIVE Leu/uL (NEGATIVE); URINE PROTEIN NEGATIVE mg/dL (<30 mg/dL); URINE UROBILINOGEN 0.2 E.U./dL (<1 E.U./dL)
[2017-06-20 20:40] LABS: URINE APPEARANCE CLEAR (CLEAR); URINE COLOR YELLOW (YELLOW)
[2017-06-21] MEDS: Pantoprazole 40 mg EC Tab PO SCH (05:17)
[2017-06-21] MEDS: Insulin Lispro (humaLOG) LOW Coverage SC SCH ×4 (07:04→21:43)
[2017-06-21 08:24] LABS: BASO # 0.01 K/mm3 (0.0-2.0); BASO % 0.1 % (0.0-3.0); EOS # 0.2 (0.0-0.7); EOS % 2.7 % (1.5-5.0); GRAN # 4.53 (1.4-6.5); GRAN % 60.2 % (50.0-68.0); HEMATOCRIT 35.3 % (36.0-48.0); LYMPH # 2.3 (1.2-3.4); MEAN CELL VOLUME 90.7 fl (80.0-105.0); MEAN CORPUSCULAR HEMOGLOBIN 29.3 pg (25.0-35.0); MEAN CORPUSCULAR HGB CONC 32.3 g/dl (31.0-37.0); MEAN PLATELET VOLUME 9.5 fl (7.0-11.0); MONO # 0.5 (0.1-0.6); RED CELL DISTRIBUTION WIDTH 14.8 % (11.5-14.5); WHITE BLOOD COUNT 7.5 10^3/ul (4.5-11.0)
[2017-06-21 08:33] LABS: ALB/GLOB RATIO 1.1 (1.1-1.8); ALKALINE PHOSPHATASE 82 U/L (38-126); ALT/SGPT 100 U/L (7-56); AST/SGOT 83 U/L (14-36); BILIRUBIN,TOTAL 0.7 mg/dL (0.2-1.3); BLOOD UREA NITROGEN 21 mg/dL (7-21); CALCIUM 9.6 mg/dL (8.4-10.5); CARBON DIOXIDE 31 mmol/L (21-33); CHLORIDE 101 mmol/L (95-110); GFR AFRICAN-AMERICAN > 60; GLUCOSE,RANDOM 144 mg/dL (70-110); POTASSIUM 4.5 mmol/L (3.6-5.0); SODIUM 141 mmol/L (132-148); TOTAL PROTEIN 6.3 g/dL (5.8-8.3)
[2017-06-21] MEDS: Sodium Chloride 0.9% 1,000 ML IV SCH ×2 (09:00→09:01)
[2017-06-21] MEDS: Magnesium Oxide 400 mg Tab UD PO SCH ×2 (11:14→18:17)
--- NOTE | 2017-06-21 12:09 | PN ---
DATE: 06/21/2017 CARDIOLOGY FOLLOWUP SUBJECTIVE: The patient is sitting in a chair in the TCU working with physical therapy without issues. OBJECTIVE: VITAL SIGNS: blood pressure is 149/80, the heart rate is in the 70s. NECK: Negative JVD. LUNGS: Without rales. HEART: Reveals S1 and S2. EXTREMITIES: Without edema. LABORATORY DATA: Hemoglobin is 11.4. Chemistries: BUN and creatinine are within normal limits. LFTs are mildly elevated. IMPRESSION: 1 Resolution of chest pain. 2. Chronic atrial fibrillation. 3. Diabetes mellitus. 4. Hypertension. 5. Hypercholesterolemia. 6. Mild pulmonary hypertension. Given these findings, the patient is doing well cardiac alba. Her heart rate is well controlled. Otilio Cedillo MD
[2017-06-22] MEDS: Pantoprazole 40 mg EC Tab PO SCH (05:36)
[2017-06-22 05:57] LABS: BASO # 0.01 K/mm3 (0.0-2.0); BASO % 0.2 % (0.0-3.0); EOS # 0.2 (0.0-0.7); EOS % 3.2 % (1.5-5.0); GRAN # 3.24 (1.4-6.5); GRAN % 58.2 % (50.0-68.0); HEMATOCRIT 30.8 % (36.0-48.0); LYMPH # 1.7 (1.2-3.4); LYMPH % 30.7 % (22.0-35.0); MEAN CELL VOLUME 90.3 fl (80.0-105.0); MEAN CORPUSCULAR HGB CONC 32.1 g/dl (31.0-37.0); MEAN PLATELET VOLUME 9.5 fl (7.0-11.0); MONO # 0.4 (0.1-0.6); MONO % 7.7 % (1.0-6.0); RED CELL DISTRIBUTION WIDTH 14.8 % (11.5-14.5); WHITE BLOOD COUNT 5.6 10^3/ul (4.5-11.0)
[2017-06-22 06:37] LABS: ALKALINE PHOSPHATASE 79 U/L (38-126); ALT/SGPT 111 U/L (7-56); AST/SGOT 103 U/L (14-36); BILIRUBIN,TOTAL 0.5 mg/dL (0.2-1.3); BLOOD UREA NITROGEN 20 mg/dL (7-21); CALCIUM 9.1 mg/dL (8.4-10.5); CARBON DIOXIDE 31 mmol/L (21-33); CHLORIDE 104 mmol/L (95-110); GFR AFRICAN-AMERICAN > 60; GLUCOSE,RANDOM 109 mg/dL (70-110); POTASSIUM 4.2 mmol/L (3.6-5.0); SODIUM 142 mmol/L (132-148); TOTAL PROTEIN 5.4 g/dL (5.8-8.3)
[2017-06-22] MEDS: Insulin Lispro (humaLOG) LOW Coverage SC SCH ×4 (06:56→21:33)
[2017-06-22] MEDS: Magnesium Oxide 400 mg Tab UD PO SCH ×2 (10:05→17:32)
--- NOTE | 2017-06-22 11:16 | CP.PCM.PN ---
Subjective - Date & Time of Evaluation Date of Evaluation: 06/22/17 Time of Evaluation: 06:30 - Subjective Subjective: 81 F with a PMHx of CVA with left-sided weakness, DM2, hypertension, HLD, atrial fibrillation on eliquis, sub pleural lung nodule of the right middle lobe 0.7cm, and chronic constipation who was admitted to the hospital for evaluation and treatment of left sided chest pain. With the use of physical examinations, lab work, and imaging the patient was diagnosed with atypical chest pain. During her hospital stay the patient also noted low back pain. Skeletal survey was ordered and showed lytic lesions, age indeterminate compression deformities in the mid thoracic spine, and L2 vertebral body. Patient was started on gabapentin for pain control. During her hospital stay the patient was seen by beautician apprentice/oncologist, Dr. Irene, who will follow up with the patient in an outpatient setting. Patient was medically stable for discharge to the TCU. Pt was seen and examined while sitting in the chair. Pt states she is comfortable, eating well and going to the bathroom normally. She also states she has been drinking more than 6 cups of water a day. Pt. denied fever, chills , sob, chest pains, abdominal pains, n/v/d/c or urinary symptoms at this time. Objective - Vital Signs/Intake and Output Vital Signs (last 24 hours): Temp Pulse Resp BP Pulse Ox 98.7 F 72 16 122/94 H 100 06/22/17 06:00 06/22/17 07:52 06/22/17 06:00 06/22/17 07:52 06/22/17 06:00 - Medications Medications: Current Medications Apixaban (Eliquis) 2.5 mg PO BID JALIL PRN Reason: Protocol Last Admin: 06/22/17 10:08 Dose: 2.5 mg Aspirin (Ecotrin) 81 mg PO 0800 JALIL PRN Reason: Protocol Last Admin: 06/22/17 07:49 Dose: 81 mg Atorvastatin Calcium (Lipitor) 20 mg PO DIN JALIL PRN Reason: Protocol Last Admin: 06/21/17 18:16 Dose: 20 mg Docusate Sodium (Colace) 100 mg PO BID JALIL PRN Reason: Protocol Last Admin: 06/22/17 10:02 Dose: 100 mg Gabapentin (Neurontin) 200 mg PO TID JALIL PRN Reason: Protocol Last Admin: 06/22/17 10:06 Dose: 200 mg Ibuprofen (Motrin Tab) 400 mg PO Q6H PRN; Protocol PRN Reason: Pain, Mild (1-3) Insulin Human Lispro (Humalog Low) 0 units SC ACHS JALIL PRN Reason: Protocol Last Admin: 06/22/17 06:56 Dose: Not Given Magnesium Oxide (Mag-Ox) 400 mg PO BID JALIL PRN Reason: Protocol Last Admin: 06/22/17 10:05 Dose: 400 mg Metoprolol Tartrate (Lopressor) 25 mg PO 0800,1800 JALIL PRN Reason: Protocol Last Admin: 06/22/17 07:52 Dose: 25 mg Pantoprazole Sodium (Protonix Ec Tab) 40 mg PO 0600 JALIL PRN Reason: Protocol Last Admin: 06/22/17 05:36 Dose: 40 mg - Labs Labs: 06/22/17 05:30 06/22/17 05:30 - Constitutional Appears: Non-toxic, No Acute Distress - Head Exam Head Exam: ATRAUMATIC, NORMAL INSPECTION, NORMOCEPHALIC - Eye Exam Eye Exam: Normal appearance - ENT Exam ENT Exam: Mucous Membranes Moist, Normal Exam - Neck Exam Neck Exam: Full ROM. absent: Lymphadenopathy - Respiratory Exam Respiratory Exam: Clear to Ausculation Bilateral, NORMAL BREATHING PATTERN - Cardiovascular Exam Cardiovascular Exam: REGULAR RHYTHM, +S1, +S2. absent: Murmur - GI/Abdominal Exam GI & Abdominal Exam: Normal Bowel Sounds. absent: Tenderness - Neurological Exam Neurological Exam: Alert, Awake, Oriented x3 - Psychiatric Exam Psychiatric exam: Normal Mood Assessment and Plan - Assessment and Plan (Free Text) Assessment: 81 F with a PMHx of CVA with residual left-sided weakness, DM2, hypertension, HLD, atrial fibrillation on eliquis, sub-pleural lung nodule of the right middle lobe 0.7cm, and chronic constipation initially admitted for evaluation and treatment of left sided chest pain. Pt found to have old rib fx on xray and on bone survey; lytic lesions. Pt was transferred to TCU for further rehab for strength and conditioning. 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 -Chest x-ray from today showed no significant changes as compared to 2 weeks ago -cardiology consulted- continue eliquis, no acs as per cardiology -Echo ordered- LVEF 65.5% outpatient stress test as per cardiology -continue 81mg aspirin and Lipitor Back Pain - skeletal survery ordered- results noted evidence of lytic lesions, age indeterminate compression deformities in the mid thoracic spine and L2 vertebral body - heme/onc stated to follow up outpatient regarding lab work up - Continue gabapentin TID - back pain improved -Follow up immunoelectrophoresis - MRI of spine pedning -Dr. Stevens consulted yesterday for possible kyphoplasty Atypical chest pain - protonix - Motrin PRN for possible MSK pain - rib series - no acute fracture History of Chronic Afib - Continue metoprolol Diabetes controlled (A1C of 6.February) -A1C -hold oral hypoglycemic -insulin sliding scale low UTI -Pyuria with suprapubic tenderness-resolved - Finished Cipro Seen reviewed and discussed with attending Dr. Shepherd
[2017-06-23] MEDS: Pantoprazole 40 mg EC Tab PO SCH (05:25)
[2017-06-23 05:40] LABS: BASO # 0.01 K/mm3 (0.0-2.0); BASO % 0.1 % (0.0-3.0); EOS # 0.1 (0.0-0.7); EOS % 1.7 % (1.5-5.0); GRAN # 4.99 (1.4-6.5); GRAN % 65.1 % (50.0-68.0); HEMATOCRIT 30.7 % (36.0-48.0); LYMPH # 1.9 (1.2-3.4); LYMPH % 25.3 % (22.0-35.0); MEAN CORPUSCULAR HEMOGLOBIN 29.3 pg (25.0-35.0); MEAN CORPUSCULAR HGB CONC 32.6 g/dl (31.0-37.0); MEAN PLATELET VOLUME 9.8 fl (7.0-11.0); MONO # 0.6 (0.1-0.6); MONO % 7.8 % (1.0-6.0); RED CELL DISTRIBUTION WIDTH 14.8 % (11.5-14.5)
[2017-06-23 05:41] LABS: WHITE BLOOD COUNT 7.7 10^3/ul (4.5-11.0)
[2017-06-23 06:30] LABS: ALKALINE PHOSPHATASE 78 U/L (38-126); ALT/SGPT 122 U/L (7-56); AST/SGOT 114 U/L (14-36); BILIRUBIN,TOTAL 0.7 mg/dL (0.2-1.3); BLOOD UREA NITROGEN 21 mg/dL (7-21); CALCIUM 8.8 mg/dL (8.4-10.5); CARBON DIOXIDE 30 mmol/L (21-33); CHLORIDE 101 mmol/L (95-110); GFR AFRICAN-AMERICAN > 60; GLUCOSE,RANDOM 124 mg/dL (70-110); POTASSIUM 4.2 mmol/L (3.6-5.0); SODIUM 139 mmol/L (132-148); TOTAL PROTEIN 5.6 g/dL (5.8-8.3)
[2017-06-23] MEDS: Insulin Lispro (humaLOG) LOW Coverage SC SCH ×4 (06:34→22:44)
[2017-06-23] MEDS: Magnesium Oxide 400 mg Tab UD PO SCH ×2 (10:27→17:35)
--- NOTE | 2017-06-23 11:59 | PN ---
DATE: 06/23/2017 CARDIOLOGY FOLLOWUP The patient is in a chair without shortness of breath, without chest pain. On physical exam, blood pressure is 148/78, the heart rate is in the 70s. Irregularly irregular. Neck: Negative JVD. Lungs: Without rales or S1, S2. Extremities: Without edema. Hemoglobin is 10.0. Chemistries, glucose is 124. IMPRESSION: 1. Atrial fibrillation with a stable heart rate. 2. Diabetes mellitus. 3. Hypertension. 4. Hypercholesterolemia. 5. Mild pulmonary hypertension. Given these findings, the patient is on anticoagulation. The patient's cardiac status is stable. Otilio Cedillo MD
[2017-06-24] MEDS: Pantoprazole 40 mg EC Tab PO SCH (05:37)
[2017-06-24] MEDS: Insulin Lispro (humaLOG) LOW Coverage SC SCH ×4 (06:37→22:27)
[2017-06-24] MEDS: Magnesium Oxide 400 mg Tab UD PO SCH ×2 (11:09→17:30)
--- NOTE | 2017-06-24 12:26 | CP.PCM.PN ---
Subjective - Date & Time of Evaluation Date of Evaluation: 06/24/17 Time of Evaluation: 07:00 - Subjective Subjective: 81 F with a PMHx of CVA with left-sided weakness, DM2, hypertension, HLD, atrial fibrillation on eliquis, sub pleural lung nodule of the right middle lobe 0.7cm, and chronic constipation who was admitted to the hospital for evaluation and treatment of left sided chest pain. With the use of physical examinations, lab work, and imaging the patient was diagnosed with atypical chest pain. During her hospital stay the patient also noted low back pain. Skeletal survey was ordered and showed lytic lesions, age indeterminate compression deformities in the mid thoracic spine, and L2 vertebral body. Patient was started on gabapentin for pain control. During her hospital stay the patient was seen by coordinate measuring machine operator/oncologist, Dr. Irene, who will follow up with the patient in an outpatient setting. Patient was medically stable for discharge to the TCU. Pt was seen and examined while sitting in the chair. Pt states she is comfortable, eating well , drinking several cups of water and going to the bathroom normally. She states her right shoulder is hurting and she had trouble using it to get up. She had some tenderness on palpation. Pt. denied fever, chills, sob, chest pains, abdominal pains, n/v/d/c or urinary symptoms at this time. Objective - Vital Signs/Intake and Output Vital Signs (last 24 hours): Temp Pulse Resp BP Pulse Ox 97.8 F 58 L 12 156/83 H 99 06/24/17 11:18 06/24/17 11:18 06/24/17 11:18 06/24/17 11:18 06/24/17 11:18 - Medications Medications: Current Medications Apixaban (Eliquis) 2.5 mg PO BID JALIL PRN Reason: Protocol Last Admin: 06/24/17 11:11 Dose: 2.5 mg Aspirin (Ecotrin) 81 mg PO 0800 JALIL PRN Reason: Protocol Last Admin: 06/24/17 08:21 Dose: 81 mg Atorvastatin Calcium (Lipitor) 20 mg PO DIN JALIL PRN Reason: Protocol Last Admin: 06/23/17 17:35 Dose: 20 mg Docusate Sodium (Colace) 100 mg PO BID JALIL PRN Reason: Protocol Last Admin: 06/24/17 11:09 Dose: 100 mg Gabapentin (Neurontin) 200 mg PO TID JALIL PRN Reason: Protocol Last Admin: 06/24/17 11:10 Dose: 200 mg Ibuprofen (Motrin Tab) 400 mg PO Q6H PRN; Protocol PRN Reason: Pain, Mild (1-3) Last Admin: 06/24/17 08:56 Dose: 400 mg Insulin Human Lispro (Humalog Low) 0 units SC ACHS JALIL PRN Reason: Protocol Last Admin: 06/24/17 06:37 Dose: Not Given Magnesium Oxide (Mag-Ox) 400 mg PO BID JALIL PRN Reason: Protocol Last Admin: 06/24/17 11:09 Dose: 400 mg Metoprolol Tartrate (Lopressor) 25 mg PO 0800,1800 JALIL PRN Reason: Protocol Last Admin: 06/24/17 08:21 Dose: 25 mg Pantoprazole Sodium (Protonix Ec Tab) 40 mg PO 0600 JALIL PRN Reason: Protocol Last Admin: 06/24/17 05:37 Dose: 40 mg - Labs Labs: 06/23/17 05:20 06/23/17 05:20 - Constitutional Appears: Non-toxic, No Acute Distress - Head Exam Head Exam: ATRAUMATIC, NORMAL INSPECTION, NORMOCEPHALIC - Eye Exam Eye Exam: Normal appearance - ENT Exam ENT Exam: Mucous Membranes Moist - Respiratory Exam Respiratory Exam: Clear to Ausculation Bilateral, NORMAL BREATHING PATTERN - Cardiovascular Exam Cardiovascular Exam: Irregular Rhythm - GI/Abdominal Exam GI & Abdominal Exam: absent: Tenderness - Extremities Exam Extremities Exam: Tenderness Additional comments: Tenderness of palpation of shoulder joint, and pain on passive range of motion - Back Exam Back Exam: absent: CVA tenderness (L), CVA tenderness (R) - Neurological Exam Neurological Exam: Alert, Awake, Oriented x3 Assessment and Plan - Assessment and Plan (Free Text) Assessment: 81 F with a PMHx of CVA with residual left-sided weakness, DM2, hypertension, HLD, atrial fibrillation on eliquis, sub-pleural lung nodule of the right middle lobe 0.7cm, and chronic constipation initially admitted for evaluation and treatment of left sided chest pain. Pt found to have old rib fx on xray and on bone survey; lytic lesions. Pt was transferred to TCU for further rehab for strength and conditioning. 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 -Chest x-ray from today showed no significant changes as compared to 2 weeks ago -cardiology consulted- continue eliquis, no acs as per cardiology -Echo ordered- LVEF 65.5% outpatient stress test as per cardiology -continue 81mg aspirin and Lipitor Back Pain - skeletal survery ordered- results noted evidence of lytic lesions, age indeterminate compression deformities in the mid thoracic spine and L2 vertebral body - heme/onc stated to follow up outpatient regarding lab work up - Continue gabapentin TID - back pain is the same from yesterday - Immunoelectrophoresis came back normal - MRI of spine showed abnormality at T10 vertebral body, which does not supress on STIR imaging. - Dr. Stevens consulted for possible kyphoplasty - Dr. Stevens consulted yesterday for possible bone lesion biopsy, will adress the plan today Atypical chest pain - protonix - Motrin PRN for possible MSK pain - rib series - no acute fracture Right Shoulder Pain -X ray ordered History of Chronic Afib - Continue metoprolol Diabetes controlled (A1C of 6.February) -A1C -hold oral hypoglycemic -insulin sliding scale low UTI -Pyuria with suprapubic tenderness-resolved - Finished Cipro Seen reviewed and discussed with attending Dr. Shepherd
--- NOTE | 2017-06-24 14:18 | RAD ---
PROCEDURE: Radiographs of the Right Shoulder HISTORY: Right shoulder pain/stiffness COMPARISON: No prior. FINDINGS: BONES: Bone alignment is normal. There is diffuse bone demineralization. There is no acute displaced fracture or bone destruction. JOINTS: There is moderate degenerative osteoarthrosis in the acromioclavicular and glenohumeral joints with moderate reduced joint spaces. SOFT TISSUES: Normal. OTHER FINDINGS: None. IMPRESSION: Moderate degenerative osteoarthrosis in the acromioclavicular and glenohumeral joints.
[2017-06-25] MEDS: Pantoprazole 40 mg EC Tab PO SCH (05:36)
[2017-06-25 06:33] VITALS: RESP 20; O2SAT 97
[2017-06-25] MEDS: Insulin Lispro (humaLOG) LOW Coverage SC SCH ×2 (06:40→12:22)
[2017-06-25] MEDS: Magnesium Oxide 400 mg Tab UD PO SCH (09:42)
[2017-06-25 10:48] VITALS: BP 161/98; PULSE 81; TEMP 97.6
--- NOTE | 2017-06-25 18:28 | CP.PCM.DIS ---
Provider - Provider Date of Admission: 06/17/17 14:31 Attending physician: Elia Samuels MD Primary care physician: Elia Samuels MD Time Spent in preparation of Discharge (in minutes): 50 Hospital Course - Lab Results Lab Results: Most Recent Lab Values WBC 7.7 10^3/ul (4.5-11.0) D 06/23/17 05:20 RBC 3.41 10^6/uL (3.5-6.1) L 06/23/17 05:20 Hgb 10.0 g/dL (12.0-16.0) L 06/23/17 05:20 Hct 30.7 % (36.0-48.0) L 06/23/17 05:20 MCV 90.0 fl (80.0-105.0) 06/23/17 05:20 MCH 29.3 pg (25.0-35.0) 06/23/17 05:20 MCHC 32.6 g/dl (31.0-37.0) 06/23/17 05:20 RDW 14.8 % (11.5-14.5) H 06/23/17 05:20 Plt Count 200 10^3/uL (120.0-450.0) 06/23/17 05:20 MPV 9.8 fl (7.0-11.0) 06/23/17 05:20 Gran % 65.1 % (50.0-68.0) 06/23/17 05:20 Lymph % (Auto) 25.3 % (22.0-35.0) 06/23/17 05:20 [place] % (Auto) 7.8 % (1.0-6.0) H 06/23/17 05:20 Eos % (Auto) 1.7 % (1.5-5.0) 06/23/17 05:20 Baso % (Auto) 0.1 % (0.0-3.0) 06/23/17 05:20 Gran # 4.99 (1.4-6.5) 06/23/17 05:20 Lymph # 1.9 (1.2-3.4) 06/23/17 05:20 [place] # 0.6 (0.1-0.6) 06/23/17 05:20 Eos # 0.1 (0.0-0.7) 06/23/17 05:20 Baso # 0.01 K/mm3 (0.0-2.0) 06/23/17 05:20 Sodium 139 mmol/L (132-148) 06/23/17 05:20 Potassium 4.2 mmol/L (3.6-5.0) 06/23/17 05:20 Chloride 101 mmol/L (95-110) 06/23/17 05:20 Carbon Dioxide 30 mmol/L (21-33) 06/23/17 05:20 Anion Gap 12 (10-20) 06/23/17 05:20 BUN 21 mg/dL (7-21) 06/23/17 05:20 Creatinine 0.8 mg/dL (0.5-1.4) 06/23/17 05:20 Est GFR ( Amer) > 60 06/23/17 05:20 Est GFR (Non-Af Amer) > 60 06/23/17 05:20 POC Glucose (mg/dL) 247 mg/dL (65-110) H 06/25/17 11:10 Random Glucose 124 mg/dL (70-110) H 06/23/17 05:20 Calcium 8.8 mg/dL (8.4-10.5) 06/23/17 05:20 Phosphorus 4.7 mg/dL (2.5-4.5) H 06/20/17 06:56 Magnesium 1.5 mg/dL (1.7-2.2) L 06/20/17 06:56 Total Bilirubin 0.7 mg/dL (0.2-1.3) 06/23/17 05:20 AST 114 U/L (14-36) H 06/23/17 05:20 ALT 122 U/L (7-56) H 06/23/17 05:20 Alkaline Phosphatase 78 U/L (38-126) 06/23/17 05:20 Total Protein 5.6 g/dL (5.8-8.3) L 06/23/17 05:20 Albumin 2.8 g/dL (3.0-4.8) L 06/23/17 05:20 Globulin 2.8 gm/dL 06/23/17 05:20 Albumin/Globulin Ratio 1.0 (1.1-1.8) L 06/23/17 05:20 Urine Color Yellow (YELLOW) 06/20/17 20:11 Urine Appearance Clear (CLEAR) 06/20/17 20:11 Urine pH 6.0 (4.7-8.0) 06/20/17 20:11 Ur Specific [place] 1.010 (1.005-1.035) 06/20/17 20:11 Urine Protein Negative mg/dL (<30 mg/dL) 06/20/17 20:11 Urine Glucose (UA) Negative mg/dL (NEGATIVE) 06/20/17 20:11 Urine Ketones Negative mg/dL (NEGATIVE) 06/20/17 20:11 Urine Blood Negative (NEGATIVE) 06/20/17 20:11 Urine Nitrate Negative (NEGATIVE) 06/20/17 20:11 Urine Bilirubin Negative (NEGATIVE) 06/20/17 20:11 Urine Urobilinogen 0.2 E.U./dL (<1 E.U./dL) 06/20/17 20:11 Ur Leukocyte Esterase Negative [place]/uL (NEGATIVE) 06/20/17 20:11 Discharge Exam - Head Exam Head Exam: ATRAUMATIC, NORMAL INSPECTION, NORMOCEPHALIC Discharge Plan - Follow Up Plan Condition: GOOD Disposition: HOME/ ROUTINE Instructions: Chest Pain (DC), Chest Pain (GEN) Additional Instructions: 1. Follow up with PMD within 1 week 2. Follow up with cardiology within 1 week 3. Take medications as prescribed 4. Return to ED if symptoms worsen Referrals: Elia Samuels MD [Primary Care Provider] - Otilio Cedillo MD [Staff Provider] -
--- NOTE | 2017-06-26 08:23 | CP.PCM.DIS ---
<LAWRENCE LAUREN - Last Filed: 06/26/17 08:13> Provider - Provider Date of Admission: 06/17/17 14:31 Attending physician: Elia Samuels MD Primary care physician: Elia Samuels MD Consults: Cardio: Mamadou Heme/Onc: Maria Victoria IR: Rodney Time Spent in preparation of Discharge (in minutes): 45 Hospital Course - Lab Results Lab Results: Most Recent Lab Values WBC 7.7 10^3/ul (4.5-11.0) D 06/23/17 05:20 RBC 3.41 10^6/uL (3.5-6.1) L 06/23/17 05:20 Hgb 10.0 g/dL (12.0-16.0) L 06/23/17 05:20 Hct 30.7 % (36.0-48.0) L 06/23/17 05:20 MCV 90.0 fl (80.0-105.0) 06/23/17 05:20 MCH 29.3 pg (25.0-35.0) 06/23/17 05:20 MCHC 32.6 g/dl (31.0-37.0) 06/23/17 05:20 RDW 14.8 % (11.5-14.5) H 06/23/17 05:20 Plt Count 200 10^3/uL (120.0-450.0) 06/23/17 05:20 MPV 9.8 fl (7.0-11.0) 06/23/17 05:20 Gran % 65.1 % (50.0-68.0) 06/23/17 05:20 Lymph % (Auto) 25.3 % (22.0-35.0) 06/23/17 05:20 [place] % (Auto) 7.8 % (1.0-6.0) H 06/23/17 05:20 Eos % (Auto) 1.7 % (1.5-5.0) 06/23/17 05:20 Baso % (Auto) 0.1 % (0.0-3.0) 06/23/17 05:20 Gran # 4.99 (1.4-6.5) 06/23/17 05:20 Lymph # 1.9 (1.2-3.4) 06/23/17 05:20 [place] # 0.6 (0.1-0.6) 06/23/17 05:20 Eos # 0.1 (0.0-0.7) 06/23/17 05:20 Baso # 0.01 K/mm3 (0.0-2.0) 06/23/17 05:20 Sodium 139 mmol/L (132-148) 06/23/17 05:20 Potassium 4.2 mmol/L (3.6-5.0) 06/23/17 05:20 Chloride 101 mmol/L (95-110) 06/23/17 05:20 Carbon Dioxide 30 mmol/L (21-33) 06/23/17 05:20 Anion Gap 12 (10-20) 06/23/17 05:20 BUN 21 mg/dL (7-21) 06/23/17 05:20 Creatinine 0.8 mg/dL (0.5-1.4) 06/23/17 05:20 Est GFR ( Amer) > 60 06/23/17 05:20 Est GFR (Non-Af Amer) > 60 06/23/17 05:20 POC Glucose (mg/dL) 247 mg/dL (65-110) H 06/25/17 11:10 Random Glucose 124 mg/dL (70-110) H 06/23/17 05:20 Calcium 8.8 mg/dL (8.4-10.5) 06/23/17 05:20 Phosphorus 4.7 mg/dL (2.5-4.5) H 06/20/17 06:56 Magnesium 1.5 mg/dL (1.7-2.2) L 06/20/17 06:56 Total Bilirubin 0.7 mg/dL (0.2-1.3) 06/23/17 05:20 AST 114 U/L (14-36) H 06/23/17 05:20 ALT 122 U/L (7-56) H 06/23/17 05:20 Alkaline Phosphatase 78 U/L (38-126) 06/23/17 05:20 Total Protein 5.6 g/dL (5.8-8.3) L 06/23/17 05:20 Albumin 2.8 g/dL (3.0-4.8) L 06/23/17 05:20 Globulin 2.8 gm/dL 06/23/17 05:20 Albumin/Globulin Ratio 1.0 (1.1-1.8) L 06/23/17 05:20 Urine Color Yellow (YELLOW) 06/20/17 20:11 Urine Appearance Clear (CLEAR) 06/20/17 20:11 Urine pH 6.0 (4.7-8.0) 06/20/17 20:11 Ur Specific [place] 1.010 (1.005-1.035) 06/20/17 20:11 Urine Protein Negative mg/dL (<30 mg/dL) 06/20/17 20:11 Urine Glucose (UA) Negative mg/dL (NEGATIVE) 06/20/17 20:11 Urine Ketones Negative mg/dL (NEGATIVE) 06/20/17 20:11 Urine Blood Negative (NEGATIVE) 06/20/17 20:11 Urine Nitrate Negative (NEGATIVE) 06/20/17 20:11 Urine Bilirubin Negative (NEGATIVE) 06/20/17 20:11 Urine Urobilinogen 0.2 E.U./dL (<1 E.U./dL) 06/20/17 20:11 Ur Leukocyte Esterase Negative [place]/uL (NEGATIVE) 06/20/17 20:11 - Hospital Course Hospital Course: 81 F with a PMHx of CVA with left-sided weakness, DM2, hypertension, HLD, atrial fibrillation on eliquis, sub pleural lung nodule of the right middle lobe 0.7cm, and chronic constipation who was admitted to the hospital for evaluation and treatment of left sided chest pain. With the use of physical examinations, lab work, and imaging the patient was diagnosed with atypical chest pain. During her hospital stay the patient also noted low back pain. Skeletal survey was ordered and showed lytic lesions, age indeterminate compression deformities in the mid thoracic spine, and L2 vertebral body. Patient was started on gabapentin for pain control. During her hospital stay the patient was seen by census taker/oncologist, Dr. Irene, who will follow up with the patient in an outpatient setting. Patient was medically stable for discharge to the TCU. During patient stay in TCU, MRI ordered for thoracic and lumbar spine due to lytic lesions found on xray. MRI of spine showed abnormality at T10 vertebral body, which does not supress on STIR imaging. IR Dr. Stevens consulted for possible kyphoplasty and bone biopsy. Cardiology was consulted during her stay, who deemed her stable from a cardiac standpoint. Immunoelectrophoresis work up was ordered, which were negative. Pt complained of shoulder pain, shoulder right xray ordered. X-ray showed osteoarthritis. Pt was examined at bedside on day of discharge. Pt only c/o of shoulder pain due to osteoarthritis. Pt denied CP, SOB, n/v/d, abdominal pain, fatigue, and dizziness. Pt clinically stable and was discharged and advised to follow up as an outpatient. Discharge Exam - Head Exam Head Exam: ATRAUMATIC, NORMAL INSPECTION, NORMOCEPHALIC - Eye Exam Eye Exam: EOMI, PERRL - ENT Exam ENT Exam: Mucous Membranes Dry - Neck Exam Neck exam: Full Rom - Respiratory Exam Respiratory Exam: Clear to PA & Lateral. absent: Rales, Rhonchi, Wheezes - Cardiovascular Exam Cardiovascular Exam: RRR. absent: Diastolic murmur, Gallop, Rubs, Systolic Murmur - GI/Abdominal Exam GI & Abdominal Exam: Normal Bowel Sounds, Soft. absent: Guarding, Mass, Rebound , Tenderness - Extremities Exam Additional comments: Right shoulder TTP, limited AROM/PROM due to pain - Neurological Exam Neurological exam: Alert, Oriented x3 - Psychiatric Exam Psychiatric exam: Normal Affect, Normal Mood - Skin Skin Exam: Dry, Intact, Normal Color, Warm Discharge Plan - Follow Up Plan Condition: GOOD Disposition: HOME/ ROUTINE Instructions: Chest Pain (DC), Chest Pain (GEN) Additional Instructions: 1. Follow up with PMD within 1 week 2. Follow up with cardiology within 1 week 3. Take medications as prescribed 4. Return to ED if symptoms worsen Referrals: Elia Samuels MD [Primary Care Provider] - Otilio Cedillo MD [Staff Provider] - <Dandy Mark - Last Filed: 06/26/17 08:45> Provider - Provider Date of Admission: 06/17/17 14:31 Attending physician: Elia Samuels MD covering for dr samuels discussed at length w/ resident and went over labs meds and prxs also to follow up w/ dr samuels in 3 days Primary care physician: Elia Samuels MD Hospital Course - Lab Results Lab Results: Most Recent Lab Values WBC 7.7 10^3/ul (4.5-11.0) D 06/23/17 05:20 RBC 3.41 10^6/uL (3.5-6.1) L 06/23/17 05:20 Hgb 10.0 g/dL (12.0-16.0) L 06/23/17 05:20 Hct 30.7 % (36.0-48.0) L 06/23/17 05:20 MCV 90.0 fl (80.0-105.0) 06/23/17 05:20 MCH 29.3 pg (25.0-35.0) 06/23/17 05:20 MCHC 32.6 g/dl (31.0-37.0) 06/23/17 05:20 RDW 14.8 % (11.5-14.5) H 06/23/17 05:20 Plt Count 200 10^3/uL (120.0-450.0) 06/23/17 05:20 MPV 9.8 fl (7.0-11.0) 06/23/17 05:20 Gran % 65.1 % (50.0-68.0) 06/23/17 05:20 Lymph % (Auto) 25.3 % (22.0-35.0) 06/23/17 05:20 [place] % (Auto) 7.8 % (1.0-6.0) H 06/23/17 05:20 Eos % (Auto) 1.7 % (1.5-5.0) 06/23/17 05:20 Baso % (Auto) 0.1 % (0.0-3.0) 06/23/17 05:20 Gran # 4.99 (1.4-6.5) 06/23/17 05:20 Lymph # 1.9 (1.2-3.4) 06/23/17 05:20 [place] # 0.6 (0.1-0.6) 06/23/17 05:20 Eos # 0.1 (0.0-0.7) 06/23/17 05:20 Baso # 0.01 K/mm3 (0.0-2.0) 06/23/17 05:20 Sodium 139 mmol/L (132-148) 06/23/17 05:20 Potassium 4.2 mmol/L (3.6-5.0) 06/23/17 05:20 Chloride 101 mmol/L (95-110) 06/23/17 05:20 Carbon Dioxide 30 mmol/L (21-33) 06/23/17 05:20 Anion Gap 12 (10-20) 06/23/17 05:20 BUN 21 mg/dL (7-21) 06/23/17 05:20 Creatinine 0.8 mg/dL (0.5-1.4) 06/23/17 05:20 Est GFR ( Amer) > 60 06/23/17 05:20 Est GFR (Non-Af Amer) > 60 06/23/17 05:20 POC Glucose (mg/dL) 247 mg/dL (65-110) H 06/25/17 11:10 Random Glucose 124 mg/dL (70-110) H 06/23/17 05:20 Calcium 8.8 mg/dL (8.4-10.5) 06/23/17 05:20 Phosphorus 4.7 mg/dL (2.5-4.5) H 06/20/17 06:56 Magnesium 1.5 mg/dL (1.7-2.2) L 06/20/17 06:56 Total Bilirubin 0.7 mg/dL (0.2-1.3) 06/23/17 05:20 AST 114 U/L (14-36) H 06/23/17 05:20 ALT 122 U/L (7-56) H 06/23/17 05:20 Alkaline Phosphatase 78 U/L (38-126) 06/23/17 05:20 Total Protein 5.6 g/dL (5.8-8.3) L 06/23/17 05:20 Albumin 2.8 g/dL (3.0-4.8) L 06/23/17 05:20 Globulin 2.8 gm/dL 06/23/17 05:20 Albumin/Globulin Ratio 1.0 (1.1-1.8) L 06/23/17 05:20 Urine Color Yellow (YELLOW) 06/20/17 20:11 Urine Appearance Clear (CLEAR) 06/20/17 20:11 Urine pH 6.0 (4.7-8.0) 06/20/17 20:11 Ur Specific [place] 1.010 (1.005-1.035) 06/20/17 20:11 Urine Protein Negative mg/dL (<30 mg/dL) 06/20/17 20:11 Urine Glucose (UA) Negative mg/dL (NEGATIVE) 06/20/17 20:11 Urine Ketones Negative mg/dL (NEGATIVE) 06/20/17 20:11 Urine Blood Negative (NEGATIVE) 06/20/17 20:11 Urine Nitrate Negative (NEGATIVE) 06/20/17 20:11 Urine Bilirubin Negative (NEGATIVE) 06/20/17 20:11 Urine Urobilinogen 0.2 E.U./dL (<1 E.U./dL) 06/20/17 20:11 Ur Leukocyte Esterase Negative [place]/uL (NEGATIVE) 06/20/17 20:11
== END 2017-06-25 16:11 | disposition home or self-care (01) | DRG 313 ==
LOC: TRCU 14:31
PROVIDERS: ADMIT Internal Medicine; ATTEND Internal Medicine
PROC: F07Z9FZ Gait Training/Functional Ambulation Treatment using Assistive, Adaptive, Supportive or Protective Equipment (ICD-10-PCS; principal; 2017-06-19)
PROC: F07L6ZZ Therapeutic Exercise Treatment of Musculoskeletal System - Lower Back / Lower Extremity (ICD-10-PCS; 2017-06-19)
PROC: F08Z1ZZ Dressing Techniques Treatment (ICD-10-PCS; 2017-06-22)
PROC: F08Z2ZZ Grooming/Personal Hygiene Treatment (ICD-10-PCS; 2017-06-22)
DX: R07.89 Other chest pain (principal); N39.0 Urinary tract infection, site not specified; I69.354 Hemiplegia and hemiparesis following cerebral infarction affecting left non-dominant side; I48.2 Chronic atrial fibrillation; I27.2 Other secondary pulmonary hypertension; M19.011 Primary osteoarthritis, right shoulder; I10 Essential (primary) hypertension; E78.5 Hyperlipidemia, unspecified; E11.9 Type 2 diabetes mellitus without complications; R91.1 Solitary pulmonary nodule; K59.09 Other constipation; M54.5 Low back pain; E78.00 Pure hypercholesterolemia, unspecified; Z79.01 Long term (current) use of anticoagulants; Z79.84 Long term (current) use of oral hypoglycemic drugs